=== PATIENT | female | born 1950 | race Caucasian/White ===

== ENCOUNTER → 2017-07-11 15:37 | Outpatient (CLI) | payer BC, SELFPAY ==
--- NOTE | 2017-07-11 15:41 | RAD_ITS ---
STUDY: X-RAY CHEST REASON FOR EXAM: Female, 66 years old. Cough and chest pain TECHNIQUE: PA and lateral views of the chest. COMPARISON: None. FINDINGS: Surgical clips in the right axilla. The lungs are clear and expanded. There is no demonstrated pleural abnormality. Normal size heart. Normal mediastinum and vinh. Normal visualized pulmonary arteries. Normal visualized aortic arch and descending thoracic aorta. Normal visualized thoracic spine. Normal visualized ribs, clavicles, and shoulders. There is no demonstrated abnormality of the visualized soft tissue structures of the upper abdomen. RAD/Chest PA and Lateral IMPRESSION: No acute cardiopulmonary disease Electronically Signed: Nehemiah Johnston DO at 16:13 EDT Tel , Service support ,
== END ==
PROVIDERS: Family Provider Internal Medicine; PCP Internal Medicine; Visit Provider Physician Assistant Surgical
DX: R06.02 Shortness of breath (principal)
CPT/HCPCS: 71046

== ENCOUNTER 2021-02-24 12:57 | Outpatient (CLI) | payer MEDICARE, BC, SELFPAY ==
[2021-02-24] MEDS: 0.9% Saline Lock 10 ML Syringe IV (13:15)
[2021-02-24 13:17] VITALS: BP 131/86; PULSE 76; RESP 16; TEMP 36.5; O2SAT 98; BMI 36.6
[2021-02-24 14:00] VITALS: BP 126/76; PULSE 73; RESP 16; TEMP 36.8; O2SAT 98
[2021-02-24 15:04] VITALS: BP 140/73; PULSE 72; RESP 16; TEMP 36.6; O2SAT 98
== END 2021-02-24 15:05 | disposition home or self-care (01) ==
LOC: MS3OUT 13:04 → MS3 13:05
PROVIDERS: PCP Internal Medicine; Referring Provider Nurse Practitioner Adult Health; Visit Provider Nurse Practitioner Adult Health
DX: Z23 Encounter for immunization (principal); U07.1 COVID-19
CPT/HCPCS: J7050; M0245; Q0245; A4216

== ENCOUNTER → 2022-10-26 | Outpatient (CLI) | payer MEDICARE, BC, SELFPAY ==
[2022-10-26 15:26] LABS: Absolute Lymphocyte Count 2.34 X10^3/uL (0.83-4.51); Absolute Neutrophil Count 5.3 X10^3/uL (2.0-7.7); Basophil# 0.08 X10^3/uL; Eosinophil# 0.11 X10^3/uL; Eosinophils% 1.3 % (0-5); Hematocrit 43.1 % (37-47); Hemoglobin 13.7 g/dL (12.0-15.0); Lymphocyte # 2.34 X10^3/ul (0.83-4.51); Lymphocyte % 28.1 % (19-41); Mean Corp Hgb Conc 31.8 g/dL (32-36); Mean Corpuscular Hgb 28.7 pg (27.0-32.0); Mean Corpuscular Volume 90.4 fL (81-99); Mean Platelet Vol. 9.9 fl (6.2-12.0); Monocyte# 0.51 X10^3/uL; Monocyte% 6.1 % (0-10); NRBC Flagged by Analyzer 0 % (0-5); Neutrophil # 5.29 X10^3/uL (2.7-7.7); Neutrophil % 63.4 % (47-70); Platelet Count 377 K/mm3 (150-450); RBC Distribution Width CV 14.5 % (11.6-14.6); RBC Distribution Width SD 47.9 fl (35.1-43.9); Red Blood Count 4.77 M/mm3 (4.2-5.4); White Blood Count 8.3 K/mm3 (4.4-11.0)
[2022-10-26 15:45] LABS: Vitamin B12 429 pg/mL (211-911)
[2022-10-26 15:53] LABS: Hemoglobin A1c 5.2 % (3.8-5.6)
[2022-10-26 16:07] LABS: AST(SGOT) 20 U/L (15-37); Alanine Aminotransfer ALT/SGPT 22 U/L (13-56); Albumin, Serum 3.7 g/dL (3.2-5.0); Alkaline Phosphatase 106 U/L (45-117); Anion Gap 5 (5-15); BUN 18 mg/dL (7-18); BUN/Creat Ratio 24.1 RATIO (10-20); Calcium,Total 9.2 mg/dL (8.5-10.1); Chloride 108 mmol/L (98-107); Cholesterol 222 mg/dL (200); Creatinine, Serum 0.75 mg/dL (0.55-1.02); EST Glomerular Filtration Rate 82 mL/min (>60); Est Glom Filt Rate - Afr Amer 99 mL/min (>60); Globulin 3.8 g/dL (2.2-4.2); Glucose 80 mg/dL (74-106); High Density Lipoprotein 63 mg/dL; Magnesium 2.4 mg/dL (1.6-2.6); Potassium 4.5 mmol/L (3.5-5.1); Protein, Total 7.5 g/dL (6.4-8.2); Sodium Level 137 mmol/L (136-145); Triglycerides 167 mg/dL; Very Low Density Lipoprotein 33 mg/dL (5-40)
== END | disposition home or self-care (01) ==
LOC: MFPLAB 12:16
PROVIDERS: PCP Internal Medicine; Visit Provider Family Medicine
DX: R42 Dizziness and giddiness (principal); Z68.31 Body mass index [BMI] 31.0-31.9, adult
CPT/HCPCS: 36415; 80053; 80061; 82607; 83036; 83735; 84443; 85025

== ENCOUNTER → 2022-11-08 | Outpatient (CLI) | payer MEDICARE, BC, SELFPAY ==
[2022-11-08 19:02] LABS: Free T3 2.4 pg/mL (2.18-3.98); T4 Free Direct 0.79 ng/dL (0.76-1.46); Thyroid Stim Hormone (TSH) 4.47 uIU/mL (0.358-3.74)
[2022-11-11 06:09] LABS: Anti-Thyroglobulin AB < 1.0 IU/mL (0.0-0.9); Thyroglobulin, Serum Qt. 13.5 ng/mL (1.5-38.5); Thyroid Peroxidase AB < 9 IU/mL (0-34); Thyroid Stim Immunoglob <0.10 IU/L (0.00-0.55)
== END | disposition home or self-care (01) ==
LOC: MFPLAB 15:18
PROVIDERS: PCP Family Medicine; Visit Provider Family Medicine
DX: R79.89 Other specified abnormal findings of blood chemistry (principal); Z79.899 Other long term (current) drug therapy
CPT/HCPCS: 36415; 84432; 84439; 84443; 84445; 84481; 86376; 86800

== ENCOUNTER → 2023-11-01 | Outpatient (CLI) | payer MEDICARE, BC, SELFPAY ==
[2023-11-01 18:18] LABS: ALB/GLOB Ratio 0.8 RATIO (0.9-2.4); AST(SGOT) 25 U/L (15-37); Alanine Aminotransfer ALT/SGPT 37 U/L (13-56); Albumin, Serum 3.3 g/dL (3.2-5.0); Alkaline Phosphatase 92 U/L (45-117); Anion Gap 6 (5-15); BUN 13 mg/dL (7-18); BUN/Creat Ratio 17.1 RATIO (10-20); Calcium,Total 9.3 mg/dL (8.5-10.1); Chloride 105 mmol/L (98-107); Cholesterol 194 mg/dL (200); Creatinine, Serum 0.76 mg/dL (0.55-1.02); EST Glomerular Filtration Rate 80 mL/min (>60); Est Glom Filt Rate - Afr Amer 97 mL/min (>60); Globulin 4.2 g/dL (2.2-4.2); Glucose 90 mg/dL (74-106); High Density Lipoprotein 52 mg/dL; Potassium 3.8 mmol/L (3.5-5.1); Protein, Total 7.5 g/dL (6.4-8.2); Sodium Level 137 mmol/L (136-145); T4 Free Direct 1.08 ng/dL (0.76-1.46); Thyroid Stim Hormone (TSH) 1.96 uIU/mL (0.358-3.74); Triglycerides 94 mg/dL; Very Low Density Lipoprotein 19 mg/dL (5-40)
[2023-11-01 18:19] LABS: Absolute Lymphocyte Count 2.65 X10^3/uL (0.83-4.51); Absolute Neutrophil Count 6.6 X10^3/uL (2.0-7.7); Basophil# 0.08 X10^3/uL; Basophil% 0.8 % (0-1); Eosinophil# 0.12 X10^3/uL; Eosinophils% 1.2 % (0-5); Hematocrit 34.3 % (37-47); Hemoglobin 10.9 g/dL (12.0-15.0); Lymphocyte # 2.65 X10^3/ul (0.83-4.51); Lymphocyte % 26.1 % (19-41); Mean Corp Hgb Conc 31.8 g/dL (32-36); Mean Corpuscular Hgb 27.9 pg (27.0-32.0); Mean Corpuscular Volume 87.9 fL (81-99); Monocyte# 0.63 X10^3/uL; Monocyte% 6.2 % (0-10); NRBC Flagged by Analyzer 0 % (0-5); Neutrophil # 6.61 X10^3/uL (2.7-7.7); Platelet Count 430 K/mm3 (150-450); RBC Distribution Width CV 15.6 % (11.6-14.6); RBC Distribution Width SD 48.2 fl (35.1-43.9); White Blood Count 10.2 K/mm3 (4.4-11.0)
[2023-11-01 18:44] LABS: BNP,B-Type NATRIURETIC PEPTIDE 21.5 pg/mL (0-100)
[2023-11-01 18:47] LABS: Vitamin D,25 Hydroxy 27.6 ng/mL
== END | disposition home or self-care (01) ==
LOC: MFPLAB 15:00
PROVIDERS: PCP Family Medicine; Visit Provider Family Medicine
DX: R06.02 Shortness of breath (principal); J18.9 Pneumonia, unspecified organism; R79.89 Other specified abnormal findings of blood chemistry
CPT/HCPCS: 36415; 80053; 80061; 82306; 83880; 84439; 84443; 85025

== ENCOUNTER → 2023-12-07 | Outpatient (CLI) | payer MEDICARE, BC, SELFPAY | END | disposition home or self-care (01) | LOC: PSN 09:08 | PROVIDERS: PCP Family Medicine; Referring Provider Family Medicine; Visit Provider Family Medicine | DX: R06.02 Shortness of breath (principal) | CPT/HCPCS: 94060; 94726; 94729 ==

== ENCOUNTER → 2023-12-21 | Outpatient (CLI) | payer MEDICARE, BC, SELFPAY ==
--- NOTE | 2023-12-21 10:35 | STRESSREP_ITS ---
Stress Test Report Date: 12/21/2023 Procedure: Exercise tolerance test Indications: Dyspnea Consent: Per the patient Procedure: The patient exercised on a Bran protocol for 2 minutes and 19 seconds achieving a peak heart rate of 133 bpm (89% predicted maximal heart rate) with a peak blood pressure 162/90 mmHg and a peak MET capacity of approximately 4.6 MET's. The baseline ECG demonstrated sinus rhythm. The peak exercise ECG demonstrated sinus tachycardia with no diagnostic ischemic changes. There were no cardiac dysrhythmias pretest, during exercise, or recovery. The functional capacity was considered suboptimal. The patient had no complaints of chest discomfort during exercise or recovery. The examination was discontinued secondary to patient's complaints of shortness of breath. Impression: 1. Technically adequate (percent predicted maximal heart rate greater than 85%) exercise tolerance test. 2. Peak exercise ECG with no ischemic changes 3. Patient with complaints of severe shortness of breath in stage one of the Bran protocol. Exercise limited to 2 minutes and 19 seconds only. Poor functional capacity. This note was generated with [email or web address] software. It may contain incorrect words, spelling, and punctuation that were not noted in checking the note before signing.
== END | disposition home or self-care (01) ==
LOC: CVS 09:37
PROVIDERS: PCP Family Medicine; Referring Provider Family Medicine; Visit Provider Family Medicine
DX: R06.02 Shortness of breath (principal)
CPT/HCPCS: 93017

== ENCOUNTER → 2024-01-16 | Outpatient (CLI) | payer MEDICARE, BC, SELFPAY ==
[2024-01-16 12:28] LABS: Absolute Lymphocyte Count 2.16 X10^3/uL (0.83-4.51); Absolute Neutrophil Count 4.2 X10^3/uL (2.0-7.7); Basophil# 0.07 X10^3/uL; Eosinophil# 0.22 X10^3/uL; Eosinophils% 3.1 % (0-5); Hematocrit 41.4 % (37-47); Hemoglobin 12.9 g/dL (12.0-15.0); Lymphocyte # 2.16 X10^3/ul (0.83-4.51); Mean Corp Hgb Conc 31.2 g/dL (32-36); Mean Corpuscular Hgb 28.6 pg (27.0-32.0); Mean Corpuscular Volume 91.8 fL (81-99); Monocyte# 0.54 X10^3/uL; Monocyte% 7.5 % (0-10); NRBC Flagged by Analyzer 0 % (0-5); Neutrophil # 4.17 X10^3/uL (2.7-7.7); Platelet Count 358 K/mm3 (150-450); RBC Distribution Width CV 14.2 % (11.6-14.6); RBC Distribution Width SD 47.6 fl (35.1-43.9); Red Blood Count 4.51 M/mm3 (4.2-5.4); White Blood Count 7.2 K/mm3 (4.4-11.0)
[2024-01-16 12:58] LABS: Vitamin B12 791 pg/mL (211-911)
[2024-01-16 13:54] LABS: Ferritin 74 ng/mL (8-252); Iron 74 ug/dL (50-170); Iron Binding Capacity,Total 353 ug/dL (250-450)
== END | disposition home or self-care (01) ==
LOC: MFPLAB 09:37
PROVIDERS: PCP Family Medicine; Visit Provider Family Medicine
DX: D64.9 Anemia, unspecified (principal)
CPT/HCPCS: 36415; 82607; 82728; 82746; 83540; 83550; 85025

== ENCOUNTER 2024-07-09 07:58 | Outpatient (CLI) | payer MEDICARE, BC, SELFPAY ==
[2024-07-09 10:41] LABS: Cholesterol 212 mg/dL (<=200); High Density Lipoprotein 81 mg/dL; Low Density Lipoprotein Calc. 110 mg/dL; Triglycerides 105 mg/dL; Very Low Density Lipoprotein 21 mg/dL (5-40); cholesterol:hdl ratio screen 2.63
[2024-07-09 12:28] LABS: Hemoglobin A1c 5.6 % (<=5.6)
== END 2024-07-09 23:59 | disposition home or self-care (01) ==
LOC: MFPLAB 07:59
PROVIDERS: PCP Family Medicine
DX: Z13.1 Encounter for screening for diabetes mellitus (principal); Z13.220 Encounter for screening for lipoid disorders
CPT/HCPCS: 36415; 80061; 83036

== ENCOUNTER → 2024-07-19 | Outpatient (CLI) | payer MEDICARE, BC, SELFPAY ==
--- NOTE | 2024-07-19 11:34 | RAD_ITS ---
PROCEDURE: Left knee radiographs, four views 07/19/2024 REASON FOR EXAM: LEFT KNEE INJURY TECHNIQUE: Four views of the left knee were obtained. COMPARISON: None available FINDINGS: Four views of the left knee were obtained. Bones are osteopenic. No acute fracture or dislocation of the left knee. Moderate degenerative change of the lateral and patellofemoral compartments. Severe degenerative change of the medial compartment. Small suprapatellar effusion. RAD/Knee 4 or More Views IMPRESSION: Osteoarthritis. No acute bony abnormality of the left knee. Moderate/severe tricompartmental degenerative changes of the left knee, greates t involving the medial compartment. Small suprapatellar effusion. Reading Location: [facility]
== END | disposition home or self-care (01) ==
LOC: MTRAD 11:26
PROVIDERS: PCP Family Medicine; Referring Provider Family Medicine; Visit Provider Family Medicine
DX: M25.562 Pain in left knee (principal)
CPT/HCPCS: 73564

== ENCOUNTER → 2024-07-24 | Outpatient (CLI) | payer MEDICARE, BC, SELFPAY ==
--- NOTE | 2024-07-24 09:40 | BD_ITS ---
PROCEDURE: DEXA BONE DENSITY STUDY 07/24/2024 REASON FOR EXAM: F, age 73 y/o . Postmenopausal. TECHNIQUE: DXA scan of the lumbar spine and both hips using make and model. REFERENCE LINKS: ISCD Adult Positions COMPARISON: None FINDINGS: BMD and T-SCORES Lumbar spine: 1.274 g/cm2, T-Score 2.1 L1 through L4 Left femoral neck: 0.754 g/cm2, T-Score -0.9 Femoral neck comparison data not recommended for monitoring change. Left total hip: 0.984 g/cm2, T-Score 0.3 Change from prior: 1.9 Right femoral neck: 0.823 g/cm2, T-Score -0.2 Femoral neck comparison data not recommended for monitoring change. Right total hip: 0.971 g/cm2, T-Score 0.2 BD/Dexa Bone Density Study IMPRESSION: NORMAL T-SCORES. Recommend follow-up as clinically warranted. Reading Location: [place] [id number]
--- NOTE | 2024-07-24 09:40 | BI_ITS ---
EXAM: SCRN MAMM (CAD)W/MK BILAT 07/24/2024 CLINICAL HISTORY: F, Age 73 y/o, screening. Personal history of right breast cancer status post lumpectomy and radiation and tamoxifen in 1999. TECHNIQUE: Bilateral screening digital breast tomosynthesis with 2D and 3D images. Computer aided detection. COMPARISON: No priors available FINDINGS: TISSUE DENSITY: The breast tissue is composed of scattered area of fibroglandular density. Bilateral Breast Mammographic Findings: There are postsurgical changes with associated large dystrophic calcifications in the upper outer right breast at posterior depth. No significant masses, calcifications or other abnormalities are identified. BI/SCRN MAMM (CAD)W/MK BILAT IMPRESSION: Right Breast: BIRADS 2 BENIGN FINDING. Left Breast: BIRADS 1 NEGATIVE. OVERALL FINAL ASSESSMENT: BIRADS 2 BENIGN FINDING. RECOMMENDATION: Routine annual follow-up in 1 Year A letter with findings and recommendations will be mailed to the patient. Reading Location: [id number]
== END | disposition home or self-care (01) ==
LOC: OPBD 09:39
PROVIDERS: PCP Family Medicine
DX: Z12.31 Encounter for screening mammogram for malignant neoplasm of breast (principal); Z13.820 Encounter for screening for osteoporosis; Z78.0 Asymptomatic menopausal state
CPT/HCPCS: 77063; 77067; 77080

== ENCOUNTER → 2024-10-07 | Outpatient (CLI) | payer MEDICARE, BC, SELFPAY ==
--- NOTE | 2024-10-07 18:43 | CT_ITS ---
PROCEDURE: EXTREMITY LOWER WITHOUT CONTRA 10/07/2024 REASON FOR EXAM: UNILATERAL PRIMARY OSTEOARTHRITIS, LT KNEE, WEN TECHNIQUE: EXTREMITY LOWER WITHOUT CONTRA Coronal and Sagittal reconstruction series were provided. CONTRAST: None One or more dose reduction techniques were used (e.g., Automated exposure control, adjustment of the mA and/or kV according to patient size, use of iterative reconstruction technique). RADIATION DOSE SUMMARY: DLP: 1292.91 mGycm COMPARISON: None FINDINGS: Bones: There is moderate to severe tricompartment osteoarthritis, most severe in the medial compartment. There is joint space narrowing and marginal osteophytes. There is a 3 cm Levy's cyst. There is a small joint effusion. Soft tissues are unremarkable. There is no visible atherosclerosis. CT/Extremity Lower without Contra IMPRESSION: There is moderate to severe tricompartment osteoarthritis, most severe in the m edial compartment. There is joint space narrowing and marginal osteophytes. There is a 3 cm Levy's cyst. There is a small joint effusion. Reading Location: [facility]
== END | disposition home or self-care (01) ==
LOC: CT 18:34
PROVIDERS: PCP Family Medicine; Referring Provider Specialist; Visit Provider Specialist
DX: M17.12 Unilateral primary osteoarthritis, left knee (principal)
CPT/HCPCS: 73700

== ENCOUNTER 2024-12-09 07:02 | Observation (INO) | payer MEDICARE, BC, SELFPAY ==
--- NOTE | 2024-11-14 07:23 | EKG12_ITS ---
Test Reason : PRE OP Blood Pressure : */* mmHG Vent. Rate : 66 BPM Atrial Rate : 66 BPM P-R Int : 168 ms QRS Dur : 68 ms QT Int : 386 ms P-R-T Axes : 24 22 44 degrees QTcB Int : 404 ms Normal sinus rhythm Normal ECG Confirmed by JODY STONE, AFSHIN ([id number]), dictionary editor KEYA BLACKBURN ([id number]) on 11/15/2024 1:18:39 PM Referred By: Sulaiman Love Confirmed By: AFSHIN VERA MD
[2024-11-14 08:39] LABS: Hematocrit 41.5 % (37-47); Hemoglobin 13.4 g/dL (12.0-15.0); Immature Granulocytes Count 0.030 X10^3/uL (0.0-0.0); Mean Corp Hgb Conc 32.3 g/dL (32-36); Mean Corpuscular Volume 91.0 fL (81-99); Mean Platelet Vol. 9.6 fl (6.2-12.0); NRBC Flagged by Analyzer 0 % (0-5); Platelet Count 332 K/mm3 (150-450); RBC Distribution Width CV 14.3 % (11.6-14.6); RBC Distribution Width SD 47.8 fl (35.1-43.9); Red Blood Count 4.56 M/mm3 (4.2-5.4); White Blood Count 8.1 K/mm3 (4.4-11.0)
[2024-11-14 08:48] LABS: Prothrombin Time (Protime)PT. 12.5 SECONDS (11.7-14.9)
[2024-11-14 08:50] LABS: Partial Thromboplast Time 28.1 Seconds (24.1-36.2)
[2024-11-14 09:23] LABS: Albumin, Serum 4.2 g/dL (3.4-4.8); Anion Gap 11 (5-15); BUN 16 mg/dL (4-19); BUN/Creat Ratio 22.1 RATIO (10-20); Calcium,Total 9.2 mg/dL (7.6-11.0); Carbon Dioxide 23.1 mmol/L (21.0-32.0); Chloride 106 mmol/L (98-108); Glucose 90 mg/dL (70-99); Magnesium 2.3 mg/dL (1.5-2.2); Potassium 4.3 mmol/L (3.3-5.1)
--- NOTE | 2024-11-14 16:14 | PAT.ANE_ITS ---
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 When Was Last Pacemaker Check QUESTION #4 FULL TEXT: You/Your Family Experience fever (hyperthermia) with Anesthesia Last Oral Intake Last Oral intake: Last Oral Intake NPO since Meds taken in AM with sips of water? 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 accounting clerk: PONV - entry level accounting clerk Female Yes 11/11/24 08:17 HX of Motion Sickness No 11/11/24 08:17 HX of N/V After Surgery No 11/11/24 08:17 Non-Smoker Yes 11/11/24 08:17 Duration of Surgery greater Yes 11/11/24 08:17 than 60 minutes Number of Risk Factors 3 11/11/24 08:17 PONV Score Moderate Risk 11/11/24 08:17 Height & Weight Height & Weight: Anesthesia: Height & Weight Height 5 ft 2 in 10/30/23 07:33 Respiratory Assessment Respiratory Assessment - entry level accounting clerk: Respiratory Tract Infection Hx - entry level accounting clerk Hx Respiratory Tract Infection No 11/11/24 08:17 STOP Sleep Apnea STOP Sleep Apnea - entry level accounting clerk: STOP Sleep Apnea - entry level accounting clerk Hx Hypertension No 11/11/24 08:17 Hx Sleep Apnea No 11/11/24 08:17 CPAP BIPAP Do you snore loudly (louder No 11/11/24 08:17 than talking or can be heard Do you often feel tired/ No 11/11/24 08:17 fatigued/ sleepy during daytime? Has anyone observed you stop No 11/11/24 08:17 breathing during sleep? STOP Results Negative 11/11/24 08:17 QUESTION #5 FULL TEXT : Do you snore loudly (louder than talking or can be heard through closed doors)? 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 Specify any problems Hx of Preganancy in last 3 N/A 11/11/24 08:17 Months Nurse Filling Out Transfusion NBUCHER 11/11/24 08:17 & Questions: Date: 11/11/24 11/11/24 08:17 Time: 08:20 11/11/24 08:17 Patient unable to answer at this time (ie. confused, unrespo /Reproduction History /Reproductive History - entry level accounting clerk: /Reproductive Hx- entry level accounting clerk Hx Now No 11/11/24 08:17 Gestational Age (in weeks): EDC: Hx Hx Para Hx Section SAB No 11/11/24 08:17 [facility] Medical History (Updated 11/11/24 @ 08:32 by Jackie Canchola) Post-menopausal Wears glasses Cancer Walker as ambulation aid Arthritis Anemia High cholesterol Chronic cough Non-smoker History of edema History of stress test Pneumonia Incontinence Bruising, spontaneous Asthma Knee pain Hay fever Shortness of breath History of breast cancer Home Medications ?Medication ?Instructions ?Recorded ?Last Taken ?Type Folate 800 mcg PO DAILY 11/11/24 Un known History cholecalciferol (vitamin D3) 50 75 mcg PO DAILY Unknown History mcg (2,000 unit) tablet (Vitamin D3) cyanocobalamin (vitamin B-12) 1,000 mcg PO QODAY 11/11 Unknown History 1,000 mcg capsule ferrous sulfate 325 mg (65 mg 325 mg PO QODAY 11/11/24 Unknown History iron) tablet (Feosol) Allergy/AdvReac Type Severity Reaction Status Date / Time Sulfa (Sulfonamide Allergy Hives Verified 11/11/24 08:12 Antibiotics) codeine AdvReac Other Verified 11/11/24 08:12 Surgical History (Updated 11/11/24 @ 08:32 by Jackie Canchola) History of lumpectomy of right breast History of tonsillectomy History of foot surgery History of History of arthroscopy of right knee Social History Smoking Status: Never smoker alcohol intake: never Audit: Pertinent Findings Pertinent Findings EKG Perinent findings: 11/14/2024: Normal sinus rhythm with no significant changes in comparison to EKG from 11/29/2000 Stress test pertinent findings: 12/21/2023: Peak exercise EKG without ischemic changes. Technically adequate exercise tolerance test (percent predicted maximal heart rate greater than 85%). Pulmonary function results/spirometer pertinent findings: 12/08/2023: Grossly normal pulmonary function studies. Recommendation Anesthesia Recommendation Anesthesia recommendation: OPTIMIZED for anesthesia
--- NOTE | 2024-11-29 12:50 | HP.PCM_ITS ---
History and Physical History and Physical? Patient Name: Meg Soliz : 1950From:? ROSA MCKEE PA-C? DATE OF PRE-OPERATIVE EXAM: 11/29/2024 DATE OF SURGERY:? 12/09/2024 SCHEDULED PROCEDURE:? Robotic-assisted left total knee arthroplasty HISTORY OF PRESENT ILLNESS: Preoperative history and physical exam was performed on November 29, 2024.? This is a 74-year-old female who has been having ongoing pain for the past several years.? Pain is been progressively been getting worse.? Her pain is constant, dull, aching, sharp, stabbing.? Pain is increased with going up and down stairs, sitting, and walking.? She cannot walk more than 100 feet without significant pain.? Her pain can reach 7/10.? She has been using Tylenol and [id number] ibuprofen as needed.? Patient has difficulty with activities of daily living including getting dressed, housework, shopping, and leisure activities such as gardening and careing of her livestock.? She has tripped/stumbled secondary to pain.? She feels unsafe walking without support long distance.? She has required the use of a cane.? She has tried rest, ice, heat without relief.? She has had previous corticosteroid injection with minimal to no relief.? She has attempted physical therapy and home exercises without relief.? She has tried oral medications without relief.? She attempted bracing.? After failing conservative measures and discussing all treatment options with Dr. Sulaiman Love, the patient does wish to proceed with a robotic assisted left total knee arthroplasty.? She has obtain surgical clearance from primary care provider Dr. Darinel Farley.? Patient denies past history of DVT or pulmonary embolism.? No recent fevers, chills or recent infections.? Denies chest pain or shortness of b reath.? She does report having anemia which has been stable and she uses chronic ferrous sulfate and folic acid. REVIEW OF SYSTEMS: Review Of Systems: Constitutional: Reports weight gain, but denies anorexia, anxiety, change in appetite, fever and weight change,hard of hearing, and vision problems. Cardiovasular: Denies chest pain, heart murmur, irregular heartbeat and peripheral vascular disease. Respiratory: Reports asthma, cough, shortness of breath and wheezing, but denies pneumonia, sleep apnea and tuberculosis. Gastrointestinal: Reports diarrhea, but denies constipation, heartburn, nausea, bloody stools and vomiting, and difficulty swallowing. Genitourinary: Reports irregular menstrual periods. Denies incontinence. Musculoskeletal: Reports gait disturbance, leg swelling, pain, trouble walking and weakness. Skin: Denies Raynaud's, history of shingles and tattoo. Neurological: Denies ambulatory dysfunction, dizziness, numbness/tingling and tremor. Psychiatric: Denies anxiety, depression, insomnia, mental illness and stress. Hematologic/Lymphatic: Reports bleeding/bruising tendency, but denies anemia and past transfusion. Reviewed and updated. PAST MEDICAL HISTORY: Advance Care Plan: No Advance Directives Effective Date: 07/31/2024 Past Medical History: Medical Problems: Arthritis, Asthma Cancer - breast 2000 High Blood Pressure, Covid- 19, Covid-19 Vaccine, anemia Accidents: Fracture - finger - little kid couple ribs crack below the knee Surgical Hx: Lumpectomy - right 2001 Knee Arthroscopy RT Section - x2 Tonsillectomy - as a child Anesthesia Complications: None Assistive Devices: Glasses Reviewed and updated. SOCIAL HISTORY: Social History: Marital: .Occupation: Retired.Work Status: Retired.Hand Dominance: Right-handed. Personal Habits:? Cigarette Use: Never.Smokeless Tobacco: Never Used Smokeless Tobacco.E-Cigarette Use: Never used.Alcohol: Occasionally.Drug Use: Denies Use.Enjoy Exercising: Exercises 1-3 x/month. Reviewed and updated. VITALS: Ht: 61 Wt: 197lb Wt k.359 BMI: 37.2 BP: 126/80 Pulse: 80 Resp: 19 T: 97.5 T: 36.4C Pain Level: 7/10 O2SatR: 98 ALLERGIES: Codeine Sulfa? MEDICATIONS: B12 5000 mcg daily, Folate 400 mcg daily, D3 2000 50 mcg (2000 Ut) three times per week, Vitamin D3 Ultra Strength 125 mcg (5000 Ut) daily, Tylenol 325 mg as needed, Ibuprofen 200 mg as needed, Iron 325 (65 Fe) MG three times per week, Folic Acid 800 mcg daily PRE-OP EXAM:? General appearance:NORMAL? ? ? Other: Eyes: Conjunctivae and lids: NORMAL? Pupils: ERR Ears, Nose, Mouth, and Throat: NORMAL? Other: Inspection of lips, teeth and gums: NORMAL? ?Other: Neck: Examination of neck: no masses noted. Respiratory: Assessment of respiratory effort: NORMAL? ?Other: ?Auscultation of lungs: clear to auscultation no wheezes, rhonchi or rales. Cardiovascular:? Auscultation of heart: regular rate and rhythm, no murmurs, gallops or rubs. PHYSICAL EXAMINATION: Patient does walk with an antalgic gait.? Left knee is without erythema or signs of infection.? She has tenderness to palpation along the medial joint line.? She has large effusion.? Varus alignment which is correctable on exam.? Range of motion: Lacks 15 full extension to 115 flexion.? Stable to anterior/posterior drawer exam. IMAGING STUDIES: Previous x-rays of the left knee reveal varus alignment with medial joint space narrowing, subchondral sclerosis, osteophyte formation consistent with severe stage IV bone on bone osteoarthritis. IMPRESSION: 1.? Severe left knee osteoarthritis with varus deformity 2.? Hypertension 3.? Anemia 4.? Asthma 5.? Previous breast cancer 6.? Obesity with BMI 37.2 PLAN: Dr. Sulaiman Love did discuss and review with the patient all treatment options including surgical versus nonsurgical options.? I will continue plan established by Dr. Sulaiman Love.? Patient does wish to proceed with the above-stated procedure.? Potential risks, benefits, and complications of the procedure were discussed in detail including but not limited to , infection, nerve and blood vessel damage, persistent pain, numbness, tingling, paresthesias, blood clot, pulmonary embolism, and requirement for possible further surgery.? The patient expressed full understanding and has no further questions for the doctor.? Patient does agree to proceed with the above-stated procedure and has signed the surgery consent form. POST-OP MEDICATION PLAN: Pain Medications: Postoperative pain regimen will be initiated by Dr. Sulaiman Love in the hospital.? We discussed Tylenol, meloxicam, and oxycodone postoperatively.? Patient will bring her walker to the hospital for postoperative use.? She will continue on her ferrous sulfate and folic acid. DVT Prophylaxis Plan:? Aspirin 81 mg twice daily for 4 weeks postoperatively.? Denies past history of DVT or pulmonary embolism.? Patient will continue with DEIDRE hose for 2 weeks postoperatively. This dictation was created using voice recognition software. Phonetic and/or grammatical errors may exist. ___? I have re-examined the patient.? There are no clinical changes since date of exam. ___? See progress notes for changes. ___? Dictated on admission Date: ? ? ?Time: Signature:
[2024-12-09] VITALS (14 sets, daily range): BP systolic 96–135; BP diastolic 57–78; PULSE 50–81; RESP 11–18; TEMP 35.9–36.6; O2SAT 94–100; BMI 37.3
--- NOTE | 2024-12-09 07:02 | RAD_ITS ---
PROCEDURE: KNEE 1 OR 2 VIEWS 12/09/2024 REASON FOR EXAM: TKA TECHNIQUE: Left knee two views COMPARISON: July 19, 2024 FINDINGS: There is a total knee prosthesis in position with anatomic alignment. Soft tissue air and surgical manjinder are noted consistent with recent surgery. RAD/Knee 1 or 2 Views IMPRESSION: Hardware in position. Reading Location: [facility]
--- OUTSIDE RECORDS SUMMARY | 2024-12-09 07:24 | XMS RPT_ITS | CCD ---
Author Organization [facility] Care Team Providers Care Continuous Improvement Coordinator Name Role Phone Alina Solorzano Unavailable Eliot Nobles Unavailable [facility], [facility] Unavailable Alisa Lino Unavailable Unavailable Tima, Vandana Unavailable Unavailable Unavailable Unavailable Darinel Escamilla MD Primary Care Provider [phone] Darinel Escamilla MD Primary Care Provider [phone] [facility] Chet KNIGHT Attending Provider Darinel Escamilla MD Attending Provider [phone] Darinel Escamilla MD Referring [facility] Chet KNIGHT Referring Provider ELIOT MCKEON Referring Unavailable DARINEL ESCAMILLA Primary Care Unavailable ELIOT MCKEON Referring Unavailable DARINEL ESCAMILLA Primary Care Unavailable ELIOT MCKEON Referring Unavailable DARINEL ESCAMILLA Primary Care Unavailable ELIOT MCKEON Referring Unavailable DARINEL ESCAMILLA Primary Care Unavailable ELIOT MCKEON Referring Unavailable DARINEL ESCAMILLA Primary Care Unavailable ELIOT MCKEON Referring Unavailable DARINEL ESCAMILLA Primary Care Unavailable BHAVESH GOMES Attending Unavailable DARINEL ESCAMILLA Primary Care Unavailable ELIOT MCKEON Referring Unavailable DARINEL ESCAMILLA Primary Care Unavailable ELIOT MCKEON Referring Unavailable DARINEL ESCAMILLA Primary Care Unavailable Kate STONE, Dr. Hilario Attending Provider [phone] Kate STONE, Dr. Hilario Referring Provider [phone] Miguelito, Chalon Primary Care Unavailable Miguelito, Chalon Attending Unavailable Miguelito, Chalon Primary Care Unavailable McMorrow POT LINING SUPERVISOR, Chet Attending Unavailable Miguelito, Chalon Primary Care Unavailable Sulaiman Love Referring Unavailable Bhanu Fam Attending Unavailabl e Miguelito, Chalon Primary Care Unavailable McMorrow POT LINING SUPERVISOR, Chet Attending Unavailable McMorrow POT LINING SUPERVISOR, Chet Referring Unavailable Kate, Sulaiman Attending Unavailable Kate, Sulaiman Referring Unavailable Miguelito, Chalon Primary Care Unavailable Miguelito, Chalon Primary Care Unavailable Miguelito, Chalon Attending Unavailable Miguelito, Chalon Referring Unavailable Miguelito, Chalon Primary Care Unavailable Kate, Sulaiman Referring Unavailable Kate, Sulaiman Attending Unavailable Miguelito, Chalon Primary Care Unavailable Miguelito, Chalon Attending Unavailable Miguelito, Chalon Referring Unavailable Miguelito, Chalon Primary Care Unavailable Denisa Ramirez Attending Unavailable Miguelito, Chalon Consulting Unavailable Miguelito, Chalon Referring Unavailable Miguelito, Chalon Primary Care Unavailable KateSulaiman dumont Referring Unavailable Kate, Sulaiman Attending Unavailable Allergies Allergy Classification Reported Allergen(s) Allergy Type Date of Onset Reaction(s) Facility (2 sources) Sulfonamides (Antibiotic); Translations: [Sulfa Drugs] allergy to substance [facility] Work Phone: (2 sources) Codeine/Codeine Derivatives; Translations: [Codeine/Codeine Derivatives] allergy to substance [facility] Work Phone: Comment on above: hyper (8 sources) Codeine; Translations: [CODEINE] Drug Allergy 5 [facility] (7 sources) Sulfonamides (Antibiotic); Translations: [SULFA (SULFONAMIDE ANTIBIOTICS)] Allergy to substance 8 [facility] (1 source) Sulfonamides (Antibiotic) Drug Allergy 4 [facility] Work Phone: (1 source) Codeine Drug Allergy 5 [facility] (1 source) Sulfonamides (Antibiotic) Drug allergy (disorder) 5 [facility] Medications Current Medications Medication Drug Class(es) Dates Sig (Normalized) Sig (Original) [id number] 200 actuat albuterol 0.09 mg/actuat metered dose inhaler (8 sources) beta2-Adrenergic Agonist Start: 10-30-2023 Albuterol Sulfate 90 mcg/actuation HFA aerosol inhaler Active 2 NMA INHALATION EVERY 6 HOURS as needed for wheezing October 30, 2023 12:00am Start: 10-17-2023 End: 10-16-2024 take 2 puff(s) by inhalation every six hours for wheezing albuterol 90 mcg/actuation inhaler Indications: Acute bronchitis, unspecified organism Inhale 2 puffs every 6 hours if needed for wheezing. 18 g 10/17/2023 10/16/2024 Active Start: 11-26-2015 take 2 puff(s) by in halation every four hours as needed ProAir HFA 108 (90 Base) MCG/ACT Inhalation Aerosol Solution 2 (two) PUff Q 4 HRS PRN for 30 days Quantity: 1 {Inhaler} Refills: 1 Ordered: 26-Nov-2015 Alina Solorzano DO, DO, Kathleen Start : 26-Nov-2015 Active Start: 11-26-2015 take 2 puff(s) by in halation every four hours as needed ProAir HFA 108 (90 Base) MCG/ACT Inhalation Aerosol Solution 2 (two) PUff Q 4 HRS PRN for 30 days Quantity: 1 {Inhaler} Refills: 1 Ordered: 26-Nov-2015 Alina Solorzano DO, DO, Kathleen Start : 26-Nov-2015 Active albuterol sulfat e (PROAIR HFA INHL) Inhale. Active azithromycin 250 mg oral tablet (7 sources) Macrolide Antimicrobial Start: 10-17-2023 End: 10-22-2023 azithromycin (Zithromax Z-Thomas) 250 mg tablet Indications: Acute bronchitis, unspecified organism Take 2 tablets (500 mg) on Day 1, followed by 1 tablet (250 mg) once daily on Days 2 through 5. 6 tablet 10/17/2023 10/22/2023 Active Start: 07-11-2017 End: 07-16-2017 Azithromycin 250 mg tablet D iscontinued 250 mg PO daily 6 July 11, 2017 12:00am July 15, 2017 12:00am July 16, 2017 12:06am Take 2 tabs once on day one then take one tablet once daily for the next 4 days. benzonatate 200 mg oral capsule (4 sources) Non-narcotic Antitussive Start: 10-30-2023 take 1 capsule by mouth three times daily as needed for cough Benzonatate 200 mg capsule Active 200 mg PO THREE TIMES A DAY as needed for cough October 30, 2023 12:00am levoFLOXacin 500 mg oral tablet (4 sources) Quinolone Antimicrobial Start: 10-30-2023 take 1 tablet by mouth every twenty-four hours Levofloxacin 500 mg tablet Active 500 mg PO Q24H October 30, 2023 12:00am LOW-DOSE ASPIRIN ORAL (1 source) LOW-DOSE ASPIRIN ORAL Take by mouth. Active Zihlman (Nk) (2 sources) Start: 02-24-2021 Zihlman (Nk) Active February 24, 2021 12:00am Completed/Discontinued Medications Medication Drug Class(es) Dates Sig (Normalized) Sig (Original) amoxicillin 875 mg / clavulanate 125 mg oral tablet (2 sources) Penicillin-class Antibacterial Start: 11-26-2015 End: 02-08-2016 take 1 tablet by mouth twice daily Augmentin 875-125 MG Oral Tablet 1 (one) Tablet bid for 0 days Quantity: 20 {Tablet} Refills: 0 Ordered: 08-Feb-2016 Vandana Alfred RN Start : 26-Nov-2015 End : 08-Feb-2016 Inactive cefdinir 300 mg oral capsule (2 sources) Cephalosporin Antibacterial Start: 10-11-2016 take 1 capsule by mouth twice daily Cefdinir 300 MG Oral Capsule 1 (one) Capsule bid for 0 days Quantity: 14 {Capsule} Refills: 0 Ordered: 11-Oct-2016 Alina Solorzano DO, DO, Kathleen Start : 11-Oct-2016 Active cholecalciferol 0.05 mg oral tablet (2 sources) Vitamin D Start: 02-10-2016 take 1 tablet by mouth once daily Vitamin D3 2000 UNIT Oral Tablet 1 (one) Tablet Tablet 3 daily for 0 days Quantity: 90 {Tablet} Refills: 3 Ordered: 11-Oct-2016 Jayjay Stern MD Start : 10-Feb-2016 Active dexamethasone 6 mg oral tablet (4 sources) Corticosteroid Start: 03-09-2023 End: 10-30-2023 take 1 tablet by mouth once daily Dexamethasone 6 mg tablet Discontinued 6 mg PO DAILY March 09, 2023 1:00am October 30, 2023 7:33am 24 hr etodolac 400 mg extended release oral tablet (2 sources) Nonsteroidal Anti-inflammatory Drug Start: 02-08-2016 take 2 tablets by mouth every twenty-four hours, then take 1 tablet by mouth once daily at mealtime Etodolac ER 400 MG Oral Tablet Extended Release 24 Hour 2 (two) Tablet ER 24HR Tablet ER 24HR qd with food for 0 days Quantity: 60 {Tablet} Refills: 0 Ordered: 08-Feb-2016 Vandana Alfred RN Start : 08-Feb-2016 Active 120 actuat formoterol fumarate 0.005 mg/actuat / mometasone furoate 0.1 mg/actuat metered dose inhaler (2 sources) Corticosteroid, beta2-Adrenergic Agonist Start: 11-26-2015 End: 12-26-2015 Dulera 100-5 MCG/ACT Inhalation Aerosol 1 (one) Aerosol Aerosol qd for 30 days Quantity: 1 {Inhaler} Refills: 0 Ordered: 26-Nov-2015 Alina Solorzano DO, DO, Kathleen Start : 26-Nov-2015 End : 26-Dec-2015 Inactive Start: 11-26-2015 End: 12-26-2015 Dulera 100-5 MCG/ACT Inhalat ion Aerosol 1 (one) Aerosol Aerosol qd for 30 days Quantity: 1 {Inhaler} Refills: 0 Ordered: 26-Nov-2015 Alina Solorzano DO, DO, Kathleen Start : 26-Nov-2015 End : 26-Dec-2015 Inactive levothyroxine sodium 0.05 mg oral tablet (2 sources) l-Thyroxine Start: 02-10-2016 Synthroid 50 M CG Oral Tablet 1 (one) Tablet Tablet qd x 5 days and 2 tab mon and monday for 0 days Quantity: 38 {Tablet} Refills: 4 Ordered: 10-Feb-2016 Jayjay Stern MD Start : 10-Feb-2016 Active methylPREDNISolone 125 mg injection (9 sources) Corticosteroid Start: 10-17-2023 End: 10-17-2023 methylPREDNISolone sod succinate (SOLU-Medrol) injection 125 mg Start: 10-17-2023 End: 10-17-2023 inject 125 mg by intramuscular injection once 125 mg, intramuscular, Once, On Mon10/17/23 at 1825, For 1 dose Start: 10-17-2023 methylPREDNISo lone (Medrol Dospak) 4 mg tablets Indications: Acute bronchitis, unspecified organism Take as directed on package. 21 tablet 10/17/2023 Active Start: 07-11-2017 End: 07-16-2017 take 1 tablet by mouth once Methylprednisolone (Medrol (Thomas)) 4 mg tablets,dose pack Discontinued 4 mg PO per package directions 21 July 11, 2017 12:00am July 15, 2017 12:00am July 16, 2017 12:06am MULTIVITAMINS (Oral Capsule) (2 sources) Start: 04-06-2015 take 1 capsule by mouth once daily MULTIVITAMINS (Oral Capsule) 1 (one) Capsule qd for 30 days Refills: 0 Ordered: 06-Apr-2015 Alina Solorzano DO, DO, Kathleen Start : 06-Apr-2015 Active naproxen sodium 220 mg oral capsule (2 sources) Nonsteroidal Anti-inflammatory Drug Start: 04-06-2015 NAPROXEN SODIUM, 220MG (Oral Capsule) 1-2 Capsule PRN for 30 days Refills: 0 Ordered: 06-Apr-2015 Alina Solorzano DO, DO, Kathleen Start : 06-Apr-2015 Active predniSONE 20 mg oral tablet (2 sources) Start: 10-11-2016 End: 10-21-2016 PredniSONE 20 MG Oral Tablet 1 (one) Tablet bid for 3days then qd for 3days then 1/2 tab qd for 4days for 10 days Refills: 0 Ordered: 11-Oct-2016 Alina Solorzano DO, DO, Kathleen Start : 11-Oct-2016 End : 21-Oct-2016 Inactive Problems Active Problems Problem Classification Problem Date Documented Date Episodic/Chronic Acute bronchitis (9 sources) Acute bronchitis; Translations: [Acute bronchitis, unspecified] Onset: 10-17-2023 07-11-2017 Episodic Administrative/social admission (2 sources) Patient encounter status; Translations: [Nutritional counseling] 10-11-2016 Episodic Asthma (10 sources) Mild intermittent asthma; Translations: [Exacerbation of asthma] 10-11-2016 Chronic Comment on above: if allergeries are s table then no problm except for specific trigger -- flee spray at work Asthma (3 sources) Asthma Chronic obstructive pulmonary disease and bronchiectasis (3 sources) Acute exacerbation of chronic obstructive airways disease with asthma; Translations: [Chronic obstructive asthma with acute exacerbation (Renamed from Chronic obstructive asthma with exacerbation)] 10-11-2016 Chronic Chronic obstructive pulmonary disease and bronchiectasis (4 sources) Bronchitis; Translations: [Bronchitis] Resolved: 02-08-2016 02-08-2016 Episodic Immunizations and screening for infectious disease (5 sources) Need for prophylactic vaccination and inoculation against influenza; Translations: [Needs influenza immunization] 10-11-2016 Episodic Malaise and fatigue (10 sources) Fatigue; Translations: [Fatigue] Resolved: 07-27-2015 02-08-2016 Episodic Nausea and vomiting (6 sources) Nausea; Translations: [Nausea] Resolved: 07-27-2015 02-08-2016 Episodic Nutritional deficiencies (14 sources) Vitamin D deficiency; Translations: [Vitamin D deficiency] 10-11-2016 Chronic Osteoarthritis (10 sources) Bilateral primary osteoarthritis of knee; Translations: [Chronic osteoarthritis] Onset: 08-14-2024 10-11-2016 Chronic Other lower respiratory disease (4 sources) Cough; Translations: [Cough] Resolved: 02-08-2016 02-08-2016 Episodic Other lower respiratory disease (3 sources) Dyspnea at rest; Translations: [Shortness of breath at rest] Resolved: 02-08-2016 02-08-2016 Episodic Other lower respiratory disease (6 sources) Dyspnea; Translations: [Shortness of breath] 07-11-2017 Episodic Other non-traumatic joint disorders (2 sources) Pain in right knee; Translations: [Chronic pain of both knees] 10-11-2016 Episodic Other nutritional; endocrine; and metabolic disorders (3 sources) Body mass index 30+ - obesity; Translations: [BMI 36.0-36.9,adult] 10-11-2016 Chronic Other skin disorders (4 sources) Disorder of skin of upper limb; Translations: [Skin lesion of left arm] Resolved: 02-08-2016 02-08-2016 Episodic Comment on above: s/p shave biopay - p ath rev Other skin disorders (6 sources) Loss of hair; Translations: [Hair loss] Resolved: 07-27-2015 02-08-2016 Episodic Comment on above: improving Poisoning by nonmedicinal substances (3 sources) Bee sting; Translations: [Bee sting, accidental or unintentional, initial encounter] 10-18-2016 Episodic Residual codes; unclassified (4 sources) Non-smoker; Translations: [Nonsmoker] 10-11-2016 Episodic Skin and subcutaneous tissue infections (2 sources) Cellulitis of right upper limb; Translations: [Cellulitis of right upper extremity] 10-18-2016 Episodic Thyroid disorders (8 sources) Acquired hypothyroidism; Translations: [Acquired hypothyroidism] 10-11-2016 Chronic Unclassified (20 sources) Unclassified (4 sources) Hair loss Unclassified (5 sources) Patient encounter status; Translations: [Encounter for screening for lipid disorder] 10-18-2016 Unclassified (2 sources) Screening status; Translations: [Encounter for screening for malignant neoplasm of colon (Renamed from Special screening for malignant neoplasms, colon)] 10-11-2016 Unclassified (4 sources) Non-smoker; Translations: [Nonsmoker] 10-11-2016 Unclassified (3 sources) Abnormal TSH Unclassified (2 sources) Skin lesion of left arm Unclassified (2 sources) Osteoarthritis, chronic Unclassified (1 source) BMI 36.0-36.9,adult Unclassified (1 source) Bee sting, accidental or unintentional, initial encounter Unclassified (1 source) Cellulitis of right upper extremity Unclassified (1 source) Chronic pain of both knees Unclassified (1 source) Osteoarthritis of both knees, unspecified osteoarthritis type Unclassified (1 source) Nutritional counseling Unclassified (1 source) Shortness of breath at rest Unclassified (1 source) Encounter for screening mammogram for breast cancer (Renamed from Encounter for screening mammogram for malignant neoplasm of breast) Unclassified (6 sources) Age more than 65 years; Translations: [Over 65 years old] 02-23-2021 Viral infection (6 sources) Disease caused by 2019-nCoV; Translations: [COVID-19] 02-23-2021 Episodic Past or Other Problems Problem Classification Problem Date Documented Da te Episodic/Chronic Deficiency and other anemia (1 source) Anemia, unspecified; Translations: [Anemia, unspecified] Onset: 02-13-2024 Episodic Other lower respiratory disease (2 sources) Shortness of breath; Translations: [Shortness of breath] Onset: 01-02-2024 Episodic Other non-traumatic joint disorders (1 source) Knee pain; Translations: [Chronic pain of both knees] 10-11-2016 Episodic Other non-traumatic joint disorders (1 source) Pain in left knee; Translations: [Pain in left knee] Onset: 07-23-2024 Episodic Other screening for suspected conditions (not mental disorders or infectious disease) (14 sources) Thyroid hormone tests abnormal; Translations: [Abnormal TSH] Onset: 07-27-2024 10-18-2016 Episodic Residual codes; unclassified (1 source) Needs influenza immunization; Translations: [Need for prophylactic vaccination and inoculation against influenza (Renamed from Need for immunization against influenza)] 10-11-2016 Episodic Skin and subcutaneous tissue infections (1 source) Cellulitis of right upper limb; Translations: [Cellulitis of right upper extremity] 10-18-2016 Unclassified (2 sources) Pregnancies (); Translations: [Pregnancies ()] 10-11-2016 Comment on above: 2. Results Test Name Value Interpretation Reference Range Facility MRSA/SAID NASAL SCREENon MRSA+SAID SCRN Reason for Exam: PRE OP MRSA MRSA Negative S. AUREUS S. aureus Negative Normal [facility] Comment on above: Performed By: #### L 100.0100, L501.5200, L500.2500, M100.651, L300.3900, L300.4310, L501.1800 ####[facility] [address] [place], [address] 12 Lead EKGon 11-14-2024 12 Lead EKG [facility] [address] [place] [address] 12 Lead EKG 11/14/24 0741 MR#: [id number] Acct: [id number] Name: MEG BORDEN Rep #: [id number] : 1950 74 From: Bhanu Fam MD Attending Dr: Dr. Sulaiman Love MD Status: PRE [facility] Ordering Dr: Sulaiman Love MD Date: 11/14/24 Location: [facility] Sex: F C Admitted: Test Reason : PRE OP Blood Pressure : */* mmHG Vent. Rate : 66 BPM Atrial Rate : 66 BPM P-R Int : 168 ms QRS Dur : 68 ms QT Int : 386 ms P-R-T Axes : 24 22 44 degrees QTcB Int : 404 ms Normal sinus rhythm Normal ECG Confirmed by JODY STONE, AFSHIN ([id number]), development editor KEYA BLACKBURN ([id number]) on 11/15/2024 1:18:39 PM Referred By: Sulaiman Love Confirmed By: AFSHIN FAM MD 11/15/24 1318 Date Bhanu Fam MD CC: Dr. Darinel Escamilla MD; Dr. Sulaiman Love MD Signed Normal [facility] Albumin, Serumon 11-14-2024 Albumin [Mass/Vol] 4.2 g/dL Normal 3.4-4.8 [facility] Comment on above: Performed By: #### L 100.0100, L501.5200, L500.2500, M100.651, L300.3900, L300.4310, L501.1800 ####[facility] [address] [place], [place], [id number] Basic Metabolic Profile (BMP )on 11-14-2024 BUN/CRE 22.1 RATIO High 10-20 [facility] Comment on above: Performed By: #### L 100.0100, L501.5200, L500.2500, M100.651, L300.3900, L300.4310, L501.1800 ####[facility] [address] [place], [address] Calcium [Mass/Vol] 9.2 mg/dL Normal 7.6-11.0 [facility] Comment on above: Performed By: #### L 100.0100, L501.5200, L500.2500, M100.651, L300.3900, L300.4310, L501.1800 ####[facility] [address] [place], [address] Chloride [Moles/Vol] 106 mmol/L Normal 98-108 [facility] Comment on above: Performed By: #### L 100.0100, L501.5200, L500.2500, M100.651, L300.3900, L300.4310, L501.1800 ####[facility] [address] [place], [address] CO2 [Moles/Vol] 23.1 mmol/L Normal 21.0-32.0 [facility] Comment on above: Performed By: #### L 100.0100, L501.5200, L500.2500, M100.651, L300.3900, L300.4310, L501.1800 ####[facility] [address] [place], [place], [phone] Creatinine [Mass/Vol] 0.70 mg/dL Normal 0.70-1.20 [facility] Comment on above: Performed By: #### L 100.0100, L501.5200, L500.2500, M100.651, L300.3900, L300.4310, L501.1800 ####[facility] [address] [place], [place], [phone] GAP 11 Normal 5-15 [facility] Comment on above: Performed By: #### L 100.0100, L501.5200, L500.2500, M100.651, L300.3900, L300.4310, L501.1800 ####[facility] [address] [place], [address] GFR/1.73 sq M.predicted among non-blacks MDRD (S/P/Bld) [Vol rate/Area] 92 mL/min/{1.73_m2} Normal >60 [facility] Comment on above: Result Comment: mL/m in/1.73m2 CKD-EPI Creatinine Equation (2020) Performed By: #### L 100.0100, L501.5200, L500.2500, M100.651, L300.3900, L300.4310, L501.1800 ####[facility] [address] [place], [address] Glucose [Mass/Vol] 90 mg/dL Normal 70-99 [facility] Comment on above: Performed By: #### L 100.0100, L501.5200, L500.2500, M100.651, L300.3900, L300.4310, L501.1800 ####[facility] [address] [place], [address] Potassium [Moles/Vol] 4.3 mmol/L Normal 3.3-5.1 [facility] Comment on above: Performed By: #### L 100.0100, L501.5200, L500.2500, M100.651, L300.3900, L300.4310, L501.1800 ####[facility] [address] [place], [address] Sodium [Moles/Vol] 140 mmol/L Normal 133-145 [facility] Comment on above: Performed By: #### L 100.0100, L501.5200, L500.2500, M100.651, L300.3900, L300.4310, L501.1800 ####[facility] [address] [place], [address] Urea nitrogen [Mass/Vol] 16 mg/dL Normal 4-19 [facility] Comment on above: Performed By: #### L 100.0100, L501.5200, L500.2500, M100.651, L300.3900, L300.4310, L501.1800 ####[facility] [address] [place], [address] CBC W/Diff, Automatedon 07-2 Absolute Lymph 2.12 X10 3/uL Normal 0.83-4.51 [facility] Comment on above: Performed By: #### L 100.0100, L501.5200, L500.2500, M100.651, L300.3900, L300.4310, L501.1800 #### [facility] [address] [place], [address] Absolute Neut 5.1 X10 3/uL Normal 2.0-7.7 [facility] Comment on above: Performed By: #### L 100.0100, L501.5200, L500.2500, M100.651, L300.3900, L300.4310, L501.1800 #### [facility] [address] [place], [address] Basophils/100 WBC (Bld) 0.9 % Normal 0-1 [facility] Comment on above: Performed By: #### L 100.0100, L501.5200, L500.2500, M100.651, L300.3900, L300.4310, L501.1800 #### [facility] [address] [place], [address] Eosinophils/100 WBC (Bld) 2.1 % Normal 0-5 [facility] Comment on above: Performed By: #### L 100.0100, L501.5200, L500.2500, M100.651, L300.3900, L300.4310, L501.1800 #### [facility] [address] [place], [address] Erythrocyte distribution width (RBC) [Ratio] 14.3 % Normal 11.6-14.6 [facility] Comment on above: Performed By: #### L 100.0100, L501.5200, L500.2500, M100.651, L300.3900, L300.4310, L501.1800 #### [facility] [address] [place], [address] Hematocrit (Bld) [Volume fraction] 41.5 % Normal 37-47 [facility] Comment on above: Performed By: #### L 100.0100, L501.5200, L500.2500, M100.651, L300.3900, L300.4310, L501.1800 #### [facility] [address] [place], [address] Hemoglobin (Bld) [Mass/Vol] 13.4 g/dL Normal 12.0-15.0 [facility] Comment on above: Performed By: #### L 100.0100, L501.5200, L500.2500, M100.651, L300.3900, L300.4310, L501.1800 #### [facility] [address] [place], [address] IG% 0.400 Normal 0.0-0.9 [facility] Comment on above: Result Comment: IG% - Immature Granulocytes (promyelocytes, myelocytes and metamyelocytes) > 1% indicates that a LEFT SHIFT is Present. Performed By: #### L 100.0100, L501.5200, L500.2500, M100.651, L300.3900, L300.4310, L501.1800 #### [facility] [address] [place], [address] Lymphocytes/100 WBC (Bld) 26.3 % Normal 19-41 [facility] Comment on above: Performed By: #### L 100.0100, L501.5200, L500.2500, M100.651, L300.3900, L300.4310, L501.1800 #### [facility] [address] [place], [address] MCH (RBC) [Entitic mass] 29.4 pg Normal 27.0-32.0 [facility] Comment on above: Performed By: #### L 100.0100, L501.5200, L500.2500, M100.651, L300.3900, L300.4310, L501.1800 #### [facility] [address] [place], [address] MCHC (RBC) [Mass/Vol] 32.3 g/dL Normal 32-36 [facility] Comment on above: Performed By: #### L 100.0100, L501.5200, L500.2500, M100.651, L300.3900, L300.4310, L501.1800 #### [facility] [address] [place], [address] MCV (RBC) [Entitic vol] 91.0 fL Normal 81-99 [facility] Comment on above: Performed By: #### L 100.0100, L501.5200, L500.2500, M100.651, L300.3900, L300.4310, L501.1800 #### [facility] [address] [place], [address] Monocytes/100 WBC (Bld) 6.7 % Normal 0-10 [facility] Comment on above: Performed By: #### L 100.0100, L501.5200, L500.2500, M100.651, L300.3900, L300.4310, L501.1800 #### [facility] [address] [place], [address] Neutrophils/100 WBC (Bld) 63.6 % Normal 47-70 [facility] Comment on above: Performed By: #### L 100.0100, L501.5200, L500.2500, M100.651, L300.3900, L300.4310, L501.1800 #### [facility] [address] [place], [address] Nucleated RBC (Bld) [#/Vol] 0 10*3/uL Normal 0-5 [facility] Comment on above: Performed By: #### L 100.0100, L501.5200, L500.2500, M100.651, L300.3900, L300.4310, L501.1800 #### [facility] [address] [place], [address] Platelet mean volume (Bld) [Entitic vol] 9.6 fL Normal 6.2-12.0 [facility] Comment on above: Performed By: #### L 100.0100, L501.5200, L500.2500, M100.651, L300.3900, L300.4310, L501.1800 #### [facility] [address] [place], [address] Platelets (Bld) [#/Vol] 332 10*3/uL Normal 150-450 [facility] Comment on above: Performed By: #### L 100.0100, L501.5200, L500.2500, M100.651, L300.3900, L300.4310, L501.1800 #### [facility] [address] [place], [address] RBC (Bld) [#/Vol] 4.56 10*6/uL Normal 4.2-5.4 [facility] Comment on above: Performed By: #### L 100.0100, L501.5200, L500.2500, M100.651, L300.3900, L300.4310, L501.1800 #### [facility] [address] [place], [address] RDW SD 47.8 fl High 35.1-43.9 [facility] Comment on above: Performed By: #### L 100.0100, L501.5200, L500.2500, M100.651, L300.3900, L300.4310, L501.1800 #### [facility] [address] [place], [address] WBC (Bld) [#/Vol] 8.1 10*3/uL Normal 4.4-11.0 [facility] Comment on above: Performed By: #### L 100.0100, L501.5200, L500.2500, M100.651, L300.3900, L300.4310, L501.1800 #### [facility] [address] [place], [address] MR/PATTimo 11-14-2024 MR/PAT.NISSA [facility] Medical Records Department [address] [place] [address] PAT - Anesthesia 11/14/24 1614 MR#: [id number] Acct: [id number] Name: MEG BORDEN Rep #: [id number] : 1950 74 From: Jyoti Dave MD PCP: Dr. 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 When Was Last Pacemaker Check QUESTION #4 FULL TEXT: You/Your Family Experience fever (hyperthermia) with Anesthesia Last Oral Intake Last Oral intake: Last Oral Intake NPO since Meds taken in AM with sips of water? Meds patient instructed to take am of surgery PONV PONV - welding inspector: PONV - welding inspector Female Yes 11/11/24 08:17 HX of Motion Sickness No 11/11/24 08:17 HX of N/V After Surgery No 11/11/24 08:17 Non-Smoker Yes 11/11/24 08:17 Duration of Surgery greater Yes 11/11/24 08:17 than 60 minutes Number of Risk Factors 3 11/11/24 08:17 PONV Score Moderate Risk 11/11/24 08:17 Height Weight Height Weight: Anesthesia: Height Weight Height 5 ft 2 in 10/30/23 07:33 Respiratory Assessment Respiratory Assessment - welding inspector: Respiratory Tract Infection Hx - welding inspector Hx Respiratory Tract Infection No 11/11/24 08:17 STOP Sleep Apnea STOP Sleep Apnea - welding inspector: STOP Sleep Apnea - welding inspector Hx Hypertension No 11/11/24 08:17 Hx Sleep Apnea No 11/11/24 08:17 CPAP BIPAP Do you snore loudly (louder No 11/11/24 08:17 than talking or can be heard Do you often feel tired/ No 11/11/24 08:17 fatigued/ sleepy during daytime? Has anyone observed you stop No 11/11/24 08:17 breathing during sleep? STOP Results Negative 11/11/24 08:17 QUESTION #5 FULL TEXT : Do you snore loudly (louder than talking or can be heard through closed doors)? 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 Specify any problems Hx of Preganancy in last 3 N/A 11/11/24 08:17 Months Nurse Filling Out Transfusion NBUCHER 11/11/24 08:17 Questions: Date: 11/11/24 11/11/24 08:17 Time: 08:20 11/11/24 08:17 Patient unable to answer at this time (ie. confused, unrespo /Reproduction History /Reproductive History - welding inspector: /Reproductive Hx- welding inspector Hx Now No 11/11/24 08:17 Gestational Age (in weeks): EDC: Hx Hx Para Hx Section SAB No 11/11/24 08:17 PFSH Medical History (Updated 11/11/24 @ 08:32 by Jackie Canchola) Post-menopausal Wears glasses Cancer Walker as ambulation aid Arthritis Anemia High cholesterol Chronic cough Non-smoker History of edema History of stress test Pneumonia Incontinence Bruising, spontaneous Asthma Knee pain Hay fever Shortness of breath History of breast cancer Home Medications ???Medication ???Instructions ???Recorded ???Last Taken ???Type Folate 800 mcg PO DAILY 11/11/24 Unknown History cholecalciferol (vitamin D3) 50 75 mcg PO DAILY 11/11/24 Unknown H istory mcg (2,000 unit) tablet (Vitamin D3) cyanocobalamin (vitamin B-12) 1,000 mcg PO QODAY 11/11/24 Unknow n History 1,000 mcg capsule ferrous sulfate 325 mg (65 mg 325 mg PO QODAY 11/11/24 Unknown H istory iron) tablet (Feosol) Allergy/AdvReac Type Severity Reaction Status Date / Time Sulfa (Sulfonamide Allergy Hives Verified (more content not included)... Normal [facility] Magnesiumon 11-14-2024 Magnesium [Mass/Vol] 2.3 mg/dL High 1.5-2.2 [facility] Comment on above: Performed By: #### L 100.0100, L501.5200, L500.2500, M100.651, L300.3900, L300.4310, L501.1800 ####[facility] [address] [place], [place], [id number] Partial Thromboplast Timeon 11-14-2024 aPTT Coag (Bld) [Time] 28.1 s Normal 24.1-36.2 [facility] Comment on above: Performed By: #### L 100.0100, L501.5200, L500.2500, M100.651, L300.3900, L300.4310, L501.1800 #### [facility] [address] [place], [place], [address] Prothrombin Time w/INRon INR Coag (PPP) [Relative time] 0.9 {INR} Normal [facility] Comment on above: Performed By: #### L 100.0100, L501.5200, L500.2500, M100.651, L300.3900, L300.4310, L501.1800 #### [facility] [address] [place], [address] PT Coag (PPP) [Time] 12.5 s Normal 11.7-14.9 [facility] Comment on above: Performed By: #### L 100.0100, L501.5200, L500.2500, M100.651, L300.3900, L300.4310, L501.1800 #### [facility] [address] [place], [address] Extremity Lower without Cont raon 10-07-2024 Extremity Lower without Contra [facility] Imaging Services [address] [facility] [place] [address] Extremity Lower without Contra MR#: [id number] Acct: [id number] Name: MEG BORDEN Rep #: [id number] : 1950 F 74 From: Kaleb Clifton MD PCP: Dr. Darinel Escamilla MD Status: REG CLI Study: Extremity Lower without Contra Date of Exam: 0 10/07/24 Exam# [id number] Ordering Dr: Sulaiman Love MD PROCEDURE: EXTREMITY LOWER WITHOUT CONTRA 10/07/2024 REASON FOR EXAM: UNILATERAL PRIMARY OSTEOARTHRITIS, LT KNEE, WEN TECHNIQUE: EXTREMITY LOWER WITHOUT CONTRA Coronal and Sagittal reconstruction series were provided. CONTRAST: None One or more dose reduction techniques were used (e.g., Automated exposure control, adjustment of the mA and/or kV according to patient size, use of iterative reconstruction technique). RADIATION DOSE SUMMARY: DLP: 1292.91 mGycm COMPARISON: None FINDINGS: Bones: There is moderate to severe tricompartment osteoarthritis, most severe in the medial compartment. There is joint space narrowing and marginal osteophytes. There is a 3 cm Levy's cyst. There is a small joint effusion. Soft tissues are unremarkable. There is no visible atherosclerosis. CT/Extremity Lower without Contra IMPRESSION: There is moderate to severe tricompartment osteoarthritis, most severe in the medial compartment. There is joint space narrowing and marginal osteophytes. There is a 3 cm Levy's cyst. There is a small joint effusion. [facility] CC: Dr. Darinel Escamilla MD; Dr. Sulaiman Love MD Employee Relations Assistant: Signed Normal [facility] Bone density reportOrdered B y: Rod Mckeon on 07-25-2024 Study report Skeletal system DXA [facility] Imaging Services [address] [place], [place] [address] Dexa Bone Density Study MR#: [id number] Acct: [id number] Name: MEG BORDEN Rep #: [id number] : 1950 F 73 From: Cruz Mckeon MD PCP: Dr. 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 Postmenopausal. TECHNIQUE: DXA scan of the lumbar spine and both hips using make and model. REFERENCE LINKS: ISCD Adult Positions COMPARISON: None FINDINGS: BMD and T-SCORES Lumbar spine: 1.274 g/cm2, T-Score 2.1 L1 through L4 Left femoral neck: 0.754 g/cm2, T-Score -0.9 Femoral neck comparison data not recommended for monitoring change. Left total hip: 0.984 g/cm2, T-Score 0.3 Change from prior: 1.9 Right femoral neck: 0.823 g/cm2, T-Score -0.2 Femoral neck comparison data not recommended for monitoring change. Right total hip: 0.971 g/cm2, T-Score 0.2 BD/Dexa Bone Density Study IMPRESSION: NORMAL T-SCORES. Recommend follow-up as clinically warranted. Reading Location: [facility] CC: Chet Damon; Dr. Darinel Escamilla MD ~ Employee Relations Assistant: Signed [facility] Breast imaging reportOrdered By: Alie Mcintosh on 07-24-2024 Study report [facility] Imaging Services [address] [place] [address] SCRN MAMM (CAD)W/MK BILAT MR#: [id number] Acct: [id number] Name: MEG BORDEN Rep #: [id number] : 1950 F 73 From: Gladis Mcintosh MD PCP: Dr. Darinel Escamilla MD Status: REG CL I Study:SCRN MAMM (CAD)W/MK BILAT Date of Exa m: 07/24/24 Exam# [id number] Ordering Dr: Chet Damon NP EXAM: SCRN MAMM (CAD)W/MK BILAT 07/24/2024 CLINICAL HISTORY: F, Age 73 y/o, screening. Personal history of right breast cancer status post lumpectomy and radiation and tamoxifen in 1999. TECHNIQUE: Bilateral screening digital breast tomosynthesis with 2D and 3D images. Computeraided detection. COMPARISON: No priors available FINDINGS: TISSUE DENSITY: The breast tissue is composed of scattered area of fibroglandular density. Bilateral Breast Mammographic Findings: There are postsurgical changes with associated large dystrophic calcifications in the upper outer right breast at posterior depth. No significant masses, calcifications or other abnormalities are identified. BI/SCRN MAMM (CAD)W/MK BILAT IMPRESSION: Right Breast: BIRADS 2 BENIGN FINDING. Left Breast: BIRADS 1 NEGATIVE. OVERALL FINAL ASSESSMENT: BIRADS 2 BENIGN FINDING. RECOMMENDATION: Routine annual follow-up in 1 Year A letter with findings and recommendations will be mailed to the patient. Reading Location: [facility] CC: Chet Damon; Dr. Darinel Escamilla MD ~ Employee Relations Assistant: Signed [facility] Dexa Bone Density Studyon Dexa Bone Density Study [facility] Imaging Services [address] [place], [place] [id number] Dexa Bone Density Study MR#: [id number] Acct: [id number] Name: MEG BORDEN Rep #: [id number] : 1950 F 73 From: Rod goodman MD PCP: Dr. Darinel Escamilla MD Status: REG CLI Study: Dexa Bone Density Study Date of Exam: 07/24/24 Exam# [id number] Ordering Dr: Chet Damon NP, NP -C PROCEDURE: DEXA BONE DENSITY STUDY 07/24/2024 REASON FOR EXAM: F, age 73 y/o . Postmenopausal. TECHNIQUE: DXA scan of the lumbar spine and both hips using make and model. REFERENCE LINKS: ISCD Adult Positions COMPARISON: None FINDINGS: BMD and T-SCORES Lumbar spine: 1.274 g/cm2, T-Score 2.1 L1 through L4 Left femoral neck: 0.754 g/cm2, T-Score -0.9 Femoral neck comparison data not recommended for monitoring change. Left total hip: 0.984 g/cm2, T-Score 0.3 Change from prior: 1.9 Right femoral neck: 0.823 g/cm2, T-Score -0.2 Femoral neck comparison data not recommended for monitoring change. Right total hip: 0.971 g/cm2, T-Score 0.2 BD/Dexa Bone Density Study IMPRESSION: NORMAL T-SCORES. Recommend follow-up as clinically warranted. Reading Location: [facility] CC: Chet Damon; Dr. Darinel Escamilla MD Employee Relations Assistant: Signed Normal [facility] SCRN MAMM (CAD)W/MK BILATo n 07-24-2024 SCRN MAMM (CAD)W/MK BILAT [facility] Imaging Services [address] [place], [place] [id number] SCRN MAMM (CAD)W/MK BILAT MR#: [id number] Acct: [id number] Name: MEG BORDEN Rep #: [id number] : 1950 F 73 From: Alie Mcintosh MD PCP: Dr. Darinel Escamilla MD Status: REG CLI Study: SCRN MAMM (CAD)W/MK BILAT Date of Exam: 06/18 Exam# [id number] Ordering Dr: Chet Damon NP POT LINING SUPERVISOR -C EXAM: SCRN MAMM (CAD)W/MK BILAT 07/24/2024 CLINICAL HISTORY: F, Age 73 y/o, screening. Personal history of right breast cancer status post lumpectomy and radiation and tamoxifen in 1999. TECHNIQUE: Bilateral screening digital breast tomosynthesis with 2D and 3D images. Computer aided detection. COMPARISON: No priors available FINDINGS: TISSUE DENSITY: The breast tissue is composed of scattered area of fibroglandular density. Bilateral Breast Mammographic Findings: There are postsurgical changes with associated large dystrophic calcifications in the upper outer right breast at posterior depth. No significant masses, calcifications or other abnormalities are identified. BI/SCRN MAMM (CAD)W/MK BILAT IMPRESSION: Right Breast: BIRADS 2 BENIGN FINDING. Left Breast: BIRADS 1 NEGATIVE. OVERALL FINAL ASSESSMENT: BIRADS 2 BENIGN FINDING. RECOMMENDATION: Routine annual follow-up in 1 Year A letter with findings and recommendations will be mailed to the patient. Reading Location: [facility] CC: Chet HARDING NP-Rome Damon; Dr. Darinel Escamilla MD Employee Relations Assistant: Signed Normal [facility] Knee 4 or More Viewson 07-19 Knee 4 or More Views [facility] Imaging Services [address] [place] [address] Knee 4 or More Views MR#: [id number] Acct: [id number] Name: MEG BORDEN Rep #: [id number] : 1950 F 73 From: Barrington Roes i, DO PCP: Dr. Darinel Escamilla MD Status: REG CLI Study: Knee 4 or More Views Date of Exam: 07/19/24 Exam# [id number] Ordering Dr: Darinel Escamilla MD PROCEDURE: Left knee radiographs, four views 07/19/2024 REASON FOR EXAM: LEFT KNEE INJURY TECHNIQUE: Four views of the left knee were obtained. COMPARISON: None available FINDINGS: Four views of the left knee were obtained. Bones are osteopenic. No acute fracture or dislocation of the left knee. Moderate degenerative change of the lateral and patellofemoral compartments. Severe degenerative change of the medial compartment. Small suprapatellar effusion. RAD/Knee 4 or More Views IMPRESSION: Osteoarthritis. No acute bony abnormality of the left knee. Moderate/severe tricompartmental degenerative changes of the left knee, greatest involving the medial compartment. Small suprapatellar effusion. Reading Location: [facility] CC: Dr. Darinel Escamilla MD Employee Relations Assistant: Signed Normal [facility] Calculated very low density lipoprotein (VLDL) cholesterol measurementOrdered By: Chet Damon on 07-09-2024 Calculated very low density lipoprotein (VLDL) cholesterol measurement 21 mg/dL 5-40 [facility] VLDL Cholesterol 21 mg/dL 5-40 [facility] Hemoglobin A1c percentageOrd ered By: Chet Damon on 07-09-2024 HbA1c (Bld) [Mass fraction] 5.6 % Low <=5.6 [facility] Comment on above: Order Comment: Order Date: 07/08/24 Order Info: [id number] - A1C Comments: diabetes screening Performed By: #### L 501.9985 #### [facility] [address] [place], [address] LDL calc ser/plasOrdered By: Chet Damon on 07-09-2024 Cholesterol in LDL [Mass/Vol] 110 mg/dL Normal [facility] Comment on above: Gspuogkzfv=944-145 m g/dL & Higher Kyxz=287 mg/dL or greater Order Comment: Order Date: 07/08/24Order Info: [id number] - LIPIDComments: screening cholesterol Result Comment: Bord itjleo=228-710 mg/dL Higher Jcda=304 mg/dL or greater Performed By: #### L 500.410 ####[facility] [address] [place], [place], [address] LDL Cholesterol, Calculated 110 mg/dL [facility] Comment on above: Mjjqqnutjy=808-521 m g/dL & Higher Xonz=933 mg/dL or greater Lipid Profileon 07-09-2024 CHOL:HDL 2.63 Normal [facility] Comment on above: Order Comment: Order Date: 07/08/24Order Info: [id number] - LIPIDComments: screening cholesterol Performed By: #### L 500.4100 ####[facility] [address] [place], [place], [address] Cholesterol in VLDL [Mass/Vol] 21 mg/dL Normal 5-40 [facility] Comment on above: Order Comment: Order Date: 07/08/24Order Info: [id number] - LIPIDComments: screening cholesterol Performed By: #### L 500.4100 ####[facility] [address] [place], [place], [address] Screening total cholesterol/ high density lipoprotein (HDL) cholesterol ratioOrdered By: Chet Damon on 07-09-2024 Cholesterol.total/Cho lesterol in HDL [Mass ratio] 2.63 {ratio} [facility] Serum or plasma cholesterol in HDL measurement (mass/volume)Ordered By: Chet Damon on 07-09-2024 Cholesterol in HDL [Mass/Vol] 81 mg/dL Normal [facility] Comment on above: National Cholesterol Education Program (NCEP) guidelines:<40 mg/dL: Low HDL-cholesterol (major risk factor for CHD)>= 60 mg/dL: High HDL-cholesterol (negative risk factor for CHD)HDL-cholesterol is affected by a number of factors, e.g. smoking, exercise, hormones, sex and age. Order Comment: Order Date: 07/08/24Order Info: [id number] - LIPIDComments: screening cholesterol Result Comment: Carmella onal Cholesterol Education Program (NCEP) guidelines: <40 mg/dL: Low HDL-cholesterol (major risk factor for CHD) >= 60 mg/dL: High HDL-cholesterol (negative risk factor for CHD) HDL-cholesterol is affected by a number of factors, e.g. smoking, exercise, hormones, sex and age. Performed By: #### L 500.4100 ####[facility] [address] [place], [address] Serum or plasma cholesterol measurement (mass/volume)Ordered By: Chet Damon on 07-09-2024 Cholesterol [Mass/Vol] 212 mg/dL High <=200 [facility] Comment on above: Cholesterol level, D esirable <200 mg/dLBorderline high cholesterol 200-239 mg/dLHigh cholesterol >=240 mg/dLRecommendations of the NCEP Adult Treatment Panel for the following risk-cutoff thresholds for the [place] population. Order Comment: Order Date: 07/08/24Order Info: [id number] - LIPIDComments: screening cholesterol Result Comment: Chol esterol level, Desirable <200 mg/dL Borderline high cholesterol 200-239 mg/dL High cholesterol >=240 mg/dL Recommendations of the NCEP Adult Treatment Panel for the following risk-cutoff thresholds for the [place] population. Performed By: #### L 500.4100 ####[facility] [address] [place], [address] Triglycerides measurementOrd ered By: Chet Damon on 07-09-2024 Triglyceride [Mass/Vol] 105 mg/dL Normal [facility] Comment on above: The drugs N-Acetylcy steine and Metamizole may falsely depress this assay. Normal range: <150 mg/dLBorderline High: 150-199 mg/dLHigh: 200-499 mg/dLVery High: >500 mg/dL Order Comment: Order Date: 07/08/24Order Info: [id number] - LIPIDComments: screening cholesterol Result Comment: The drugs N-Acetylcysteine and Metamizole may falsely depress this assay. Normal range: <150 mg/dL Borderline High: 150-199 mg/dL High: 200-499 mg/dL Very High: >500 mg/dL Performed By: #### L 500.4100 ####[facility] [address] [place], [place], [address] CBC W/Diff, Automatedon 12-24 Absolute Lymph 2.16 X10 3/uL Normal 0.83-4.51 [facility] Comment on above: Order Comment: Order Date: 01/16/24Order Info: 183- - CBCD Performed By: #### L 100.0100, L503.6550, L503.0105, L503.6030, L506.0250 ####[facility] [address] [place], [address] Absolute Neut 4.2 X10 3/uL Normal 2.0-7.7 [facility] Comment on above: Order Comment: Order Date: 01/16/24Order Info: 183- - CBCD Performed By: #### L 100.0100, L503.6550, L503.0105, L503.6030, L506.0250 ####[facility] [address] [place], [address] Basophils/100 WBC (Bld) 1.0 % Normal 0-1 [facility] Comment on above: Order Comment: Order Date: 01/16/24Order Info: 018- - CBCD Performed By: #### L 100.0100, L503.6550, L503.0105, L503.6030, L506.0250 ####[facility] [address] [place], [address] Eosinophils/100 WBC (Bld) 3.1 % Normal 0-5 [facility] Comment on above: Order Comment: Order Date: 01/16/24Order Info: 018- - CBCD Performed By: #### L 100.0100, L503.6550, L503.0105, L503.6030, L506.0250 ####[facility] [address] [place], [address] Erythrocyte distribution width (RBC) [Ratio] 14.2 % Normal 11.6-14.6 [facility] Comment on above: Order Comment: Order Date: 01/16/24Order Info: 018-1 - CBCD Performed By: #### L 100.0100, L503.6550, L503.0105, L503.6030, L506.0250 ####[facility] [address] [place], [address] Hematocrit (Bld) [Volume fraction] 41.4 % Normal 37-47 [facility] Comment on above: Order Comment: Order Date: 01/16/24Order Info: 0184-1 - CBCD Performed By: #### L 100.0100, L503.6550, L503.0105, L503.6030, L506.0250 ####[facility] [address] [place], [address] Hemoglobin (Bld) [Mass/Vol] 12.9 g/dL Normal 12.0-15.0 [facility] Comment on above: Order Comment: Order Date: 01/16/24Order Info: 0184-1 - CBCD Performed By: #### L 100.0100, L503.6550, L503.0105, L503.6030, L506.0250 ####[facility] [address] [facility] [place], [address] IG% 0.400 Normal 0.0-0.9 [facility] Comment on above: Order Comment: Order Date: 01/16/24Order Info: [id number] - CBCD Result Comment: IG% - Immature Granulocytes (promyelocytes, myelocytes and metamyelocytes) > 1% indicates that a LEFT SHIFT is Present. Performed By: #### L 100.0100, L503.6550, L503.0105, L503.6030, L506.0250 ####[facility] [address] [place], [address] Lymphocytes/100 WBC (Bld) 30.0 % Normal 19-41 [facility] Comment on above: Order Comment: Order Date: 01/16/24Order Info: 0184-1 - CBCD Performed By: #### L 100.0100, L503.6550, L503.0105, L503.6030, L506.0250 ####[facility] [address] [place], [address] MCH (RBC) [Entitic mass] 28.6 pg Normal 27.0-32.0 [facility] Comment on above: Order Comment: Order Date: 01/16/24Order Info: 183- - CBCD Performed By: #### L 100.0100, L503.6550, L503.0105, L503.6030, L506.0250 ####[facility] [address] [place], [address] MCHC (RBC) [Mass/Vol] 31.2 g/dL Low 32-36 [facility] Comment on above: Order Comment: Order Date: 01/16/24Order Info: 183- - CBCD Performed By: #### L 100.0100, L503.6550, L503.0105, L503.6030, L506.0250 ####[facility] [address] [place], [address] MCV (RBC) [Entitic vol] 91.8 fL Normal 81-99 [facility] Comment on above: Order Comment: Order Date: 01/16/24Order Info: 183- - CBCD Performed By: #### L 100.0100, L503.6550, L503.0105, L503.6030, L506.0250 ####[facility] [address] [place], [address] Monocytes/100 WBC (Bld) 7.5 % Normal 0-10 [facility] Comment on above: Order Comment: Order Date: 01/16/24Order Info: 183-1 - CBCD Performed By: #### L 100.0100, L503.6550, L503.0105, L503.6030, L506.0250 ####[facility] [address] [place], [address] Neutrophils/100 WBC (Bld) 58.0 % Normal 47-70 [facility] Comment on above: Order Comment: Order Date: 01/16/24Order Info: 0184-1 - CBCD Performed By: #### L 100.0100, L503.6550, L503.0105, L503.6030, L506.0250 ####[facility] [address] [place], [address] Nucleated RBC (Bld) [#/Vol] 0 10*3/uL Normal 0-5 [facility] Comment on above: Order Comment: Order Date: 01/16/24Order Info: 0184-1 - CBCD Performed By: #### L 100.0100, L503.6550, L503.0105, L503.6030, L506.0250 ####[facility] [address] [place], [address] Platelet mean volume (Bld) [Entitic vol] 10.0 fL Normal 6.2-12.0 [facility] Comment on above: Order Comment: Order Date: 01/16/24Order Info: 0184-1 - CBCD Performed By: #### L 100.0100, L503.6550, L503.0105, L503.6030, L506.0250 ####[facility] [address] [place], [address] Platelets (Bld) [#/Vol] 358 10*3/uL Normal 150-450 [facility] Comment on above: Order Comment: Order Date: 01/16/24Order Info: 0184-1 - CBCD Performed By: #### L 100.0100, L503.6550, L503.0105, L503.6030, L506.0250 ####[facility] [address] [place], [address] RBC (Bld) [#/Vol] 4.51 10*6/uL Normal 4.2-5.4 [facility] Comment on above: Order Comment: Order Date: 01/16/24Order Info: 018- - CBCD Performed By: #### L 100.0100, L503.6550, L503.0105, L503.6030, L506.0250 ####[facility] [address] [place], [address] RDW SD 47.6 fl High 35.1-43.9 [facility] Comment on above: Order Comment: Order Date: 01/16/24Order Info: 018- - CBCD Performed By: #### L 100.0100, L503.6550, L503.0105, L503.6030, L506.0250 ####[facility] [address] [place], [address] WBC (Bld) [#/Vol] 7.2 10*3/uL Normal 4.4-11.0 [facility] Comment on above: Order Comment: Order Date: 01/16/24Order Info: 018- - CBCD Performed By: #### L 100.0100, L503.6550, L503.0105, L503.6030, L506.0250 ####[facility] [address] [place], [address] Ferritinon 01-16-2024 Ferritin [Mass/Vol] 74 ng/mL Normal 8-252 [facility] Comment on above: Order Comment: Order Date: 01/16/24Order Info: [id number] - IBCOrder Info: 2276-4 - FEROrder Info: 2284-8 - fOLATESN Performed By: #### L 100.0100, L503.6550, L503.0105, L503.6030, L506.0250 ####[facility] [address] [place], [address] Folates, (Folic Acid)on 12-24 FOLATES 19.90 ng/mL Normal 3.1-55.4 [facility] Comment on above: Order Comment: Order Date: 01/16/24Order Info: [id number] - IBCOrder Info: [id number] - FEROrder Info: 2283-11 - fOLATESN Performed By: #### L 100.0100, L503.6550, L503.0105, L503.6030, L506.0250 ####[facility] [address] [place], [address] Iron+Iron Binding Capacityon 01-16-2024 Iron [Mass/Vol] 74 ug/dL Normal 50-170 [facility] Comment on above: Order Comment: Order Date: 01/16/24Order Info: [id number] - IBCOrder Info: [id number] - FEROrder Info: 2283-11 - fOLATESN Performed By: #### L 100.0100, L503.6550, L503.0105, L503.6030, L506.0250 ####[facility] [address] [place], [place], [address] IRON SATURATION 21.0 Normal 15.0-55.0 [facility] Comment on above: Order Comment: Order Date: 01/16/24Order Info: [id number] - IBCOrder Info: [id number] - FEROrder Info: 2283-11 - fOLATESN Performed By: #### L 100.0100, L503.6550, L503.0105, L503.6030, L506.0250 ####[facility] [address] [place], [address] TIBC 353 ug/dL Normal 250-450 [facility] Comment on above: Order Comment: Order Date: 01/16/24Order Info: [id number] - IBCOrder Info: [id number] - FEROrder Info: 2283-11 - fOLATESN Performed By: #### L 100.0100, L503.6550, L503.0105, L503.6030, L506.0250 ####[facility] [address] [place], [address] Vitamin B12on 01-16-2024 Cobalamin (Vitamin B12) [Mass/Vol] 791 pg/mL Normal 211-911 [facility] Comment on above: Order Comment: Order Date: 01/16/24Order Info: 2132-9 - B12 Performed By: #### L 100.0100, L503.6550, L503.0105, L503.6030, L506.0250 ####[facility] [address] [place], [address] Stress Reporton 12-21-2023 Stress Report [facility] [address] [place] [address] MR#: [id number] Acct: [id number] Name: MEG BORDEN Rep #: [id number] : 1950 73 From: Denisa Ramirez MD Primary Care: Dr. Darinel Escamilla MD Status: REG I Referring Dr: Darinel Escamilla MD Sex: F C Stress Test Report Date: 12/21/2023 Procedure: Exercise tolerance test Indications: Dyspnea Consent: Per the patient Procedure: The patient exercised on a Bran protocol for 2 minutes and 19 seconds achieving a peak heart rate of 133 bpm (89% predicted maximal heart rate) with a peak blood pressure 162/90 mmHg and a peak MET capacity of approximately 4.6 MET's. The baseline ECG demonstrated sinus rhythm. The peak exercise ECG demonstrated sinus tachycardia with no diagnostic ischemic changes. There were no cardiac dysrhythmias pretest, during exercise, or recovery. The functional capacity was considered suboptimal. The patient had no complaints of chest discomfort during exercise or recovery. The examination was discontinued secondary to patient's complaints of shortness of breath. Impression: 1. Technically adequate (percent predicted maximal heart rate greater than 85%) exercise tolerance test. 2. Peak exercise ECG with no ischemic changes 3. Patient with complaints of severe shortness of breath in stage one of the Bran protocol. Exercise limited to 2 minutes and 19 seconds only. Poor functional capacity. This note was generated with Apliiqation software. It may contain incorrect words, spelling, and punctuation that were not noted in checking the note before signing. 12/21/23 1039 Date Denisa Ramirez MD CC: Dr. Darinel Escamilla MD Date Dictated: 12/21/231034 Date Transcribed: 12/21/231034 Employee Relations Assistant: TOSIN Signed Normal [facility] POCT SARS-COV-2/FLU/RSV PCR SYMPTOMATIC manually resultedOrdered By: Britta Landeros on 10-18-2023 FLUAV RNA RIOS+probe Ql (Resp) Not detected Not Detected [facility] FLUBV RNA RIOS+probe Ql (Resp) Not detected Not Detected [facility] RSV RNA RIOS+probe Ql (Resp) Not detected Not Detected [facility] SARS-CoV-2 (COVID-19) RNA RIOS+probe Ql (Resp) Not detected Not Detected [facility] - Chemistry and C hemistry - challengeOrdered By: Nicol Emanuel on 11-08-2022 Free T4 [Mass/Vol] 0.79 ng/dL 0.76-1.46 [facility] No Panel InformationOrdered By: Nicol Emanuel on 11-08-2022 Free Triiodothyronine (T3) pg/dL 2.4 pg/mL 2.18-3.98 [facility] Thyroglobulin Antibody < 1.0 IU/mL 0.0-0.9 [facility] Comment on above: Thyroglobulin Antibo dy measured by Brian CoulterMethodology Thyroglobulin Level 13.5 ng/mL 1.5-38.5 [facility] Comment on above: According to the [facility] Academy of Clinical Biochemistry,the reference interval for Thyroglobulin (TG) should berelated to euthyroid patients and not for patients whounderwent thyroidectomy. TG reference intervals for thesepatients depend on the residual mass of the thyroid tissueleft after surgery. Establishing a post-operative baselineis recommended. The assay limit of quantitation is 0.1ng/mLThyroglobulin measured by Brian Radha ImmunometricAssay Thyroid Stimulating Hormone (TSH) 4.47 uIU/mL 0.358-3.74 [facility] Serum or plasma thyroperoxid ase antibody assay (units/volume)Ordered By: Nicol Emanuel on 11-08-2022 TPO Ab Qn [IU]/mL 0-34 [facility] Comment on above: Performed at: [address] [id number] Director: Vasiliy Sheriff MD, Phone: [phone] at: [facility] Lab[address] [id number] Director: Saul Moore PhD, Phone: [phone] Thyroid stimulating immunogl obulins detectionOrdered By: Nicol Emanuel on 11-08-2022 Thyroid stimulating immunoglobulins Ql (S) <0.10 IU/L 0.00-0.55 [facility] Absolute lymphocyte countOrd ered By: Nicol Emanuel on 10-26-2022 Lymphocytes Auto (Unsp spec) [#/Vol] 2.34 10*3/uL 0.83-4.51 [facility] Basophil percentageOrdered B y: Nicol Emanuel on 10-26-2022 Basophils/100 WBC (Bld) 1.0 % 0-1 [facility] Bilirubin [Mass/Vol] 0.60 mg/dL 0.20-1.00 [facility] Comment on above: For patients on eltr ombopag therapy, use of Dimension [place] TBIL is not recommended. Chloride [Moles/Vol] 108 mmol/L 98-107 [facility] Cholesterol [Mass/Vol] 222 mg/dL <200 [facility] Comment on above: <200 mg/dL Desirable 200-240 mg/dL Borderline >240 mg/dL High Risk Eosinophils/100 WBC (Bld) 1.3 % 0-5 [facility] Glucose [Mass/Vol] 80 mg/dL 74-106 [facility] Neutrophils (Bld) [#/Vol] 5.3 10*3/uL 2.0-7.7 [facility] Neutrophils/100 WBC (Bld) 63.4 % 47-70 [facility] Potassium [Moles/Vol] 4.5 mmol/L 3.5-5.1 [facility] Protein [Mass/Vol] 7.5 g/dL 6.4-8.2 [facility] Sodium [Moles/Vol] 137 mmol/L 136-145 [facility] Triglyceride [Mass/Vol] 167 mg/dL <199 [facility] Comment on above: The drugs N-Acetylcy steine and Metamizole may falsely depress this assay.Serum Triglycerides Reference Interval Normal <150 mg/dL Borderline high 150 - 199 mg/dL High 200 - 499 mg/dL Very High > or = 500 mg/dL WBC (Bld) [#/Vol] 8.3 10*3/uL 4.4-11.0 [facility] Blood erythrocytes count (nu mber/volume)Ordered By: Nicol Emanuel on 10-26-2022 RBC (Bld) [#/Vol] 4.77 10*6/uL 4.2-5.4 [facility] Blood hemoglobin measurement (mass/volume)Ordered By: Nicol Emanuel on 10-26-2022 Hemoglobin (Bld) [Mass/Vol] 13.7 g/dL 12.0-15.0 [facility] Blood lymphocytes/100 leukoc ytesOrdered By: Nicol Emanuel on 10-26-2022 Lymphocytes/100 WBC (Bld) 28.1 % 19-41 [facility] Blood monocytes/100 leukocyt esOrdered By: Nicol Emanuel on 10-26-2022 Monocytes/100 WBC (Bld) 6.1 % 0-10 [facility] Blood platelet mean volumeOr dered By: Nicol Emanuel on 10-26-2022 Platelet mean volume (Bld) [Entitic vol] 9.9 fL 6.2-12.0 [facility] Determination of erythrocyte mean corpuscular volume (MCV)Ordered By: Nicol Emanuel on 10-26-2022 MCV (RBC) [Entitic vol] 90.4 fL 81-99 [facility] Hematocrit Auto (Bld) [Volum e fraction]Ordered By: Nicol Emanuel on 10-26-2022 Hematocrit (Bld) [Volume fraction] 43.1 % 37-47 [facility] Laboratory - Chemistry and C hemistry - challengeOrdered By: Nicol Emanuel on 10-26-2022 ALP [Catalytic activity/Vol] 106 U/L 45-117 [facility] ALT [Catalytic activity/Vol] 22 U/L 13-56 [facility] CO2 [Moles/Vol] 24.0 mmol/L 21.0-32.0 [facility] Cobalamin (Vitamin B12) [Mass/Vol] 429 pg/mL 211-911 [facility] Globulin (S) [Mass/Vol] 3.8 g/dL 2.2-4.2 [facility] Magnesium [Mass/Vol] 2.4 mg/dL 1.6-2.6 [facility] Urea nitrogen/Creatinine [Mass ratio] 24.1 mg/mg 10-20 [facility] Laboratory - Hematology and Cell countsOrdered By: Nicol Emanuel on 10-26-2022 Erythrocyte distribution width (RBC) [Entitic vol] 47.9 fL 35.1-43.9 [facility] Erythrocyte distribution width (RBC) [Ratio] 14.5 % 11.6-14.6 [facility] Immature granulocytes/100 WBC (Bld) 0.100 % 0.0-0.9 [facility] Comment on above: IG% - Immature Granu locytes (promyelocytes, myelocytes and metamyelocytes) > 1% indicates that a LEFT SHIFT is Present. MCH (RBC) [Entitic mass] 28.7 pg 27.0-32.0 [facility] Nucleated RBC/100 WBC (Bld) [Ratio] 0 % 0-5 [facility] MCHC Auto (RBC) [Mass/Vol]Or dered By: Nicol Emanuel on 10-26-2022 MCHC (RBC) [Mass/Vol] 31.8 g/dL 32-36 [facility] No Panel InformationOrdered By: Nicol Emanuel on 10-26-2022 Estimated GFR (MDRD) Amer 99 mL/min >60 [facility] Comment on above: GFR Calc Estimated GFR (MDRD) Non-Af Amer 82 mL/min >60 [facility] Comment on above: Non- GFR Calc Thyroid Stimulating Hormone (TSH) 6.00 uIU/mL 0.358-3.74 [facility] Platelets bldOrdered By: Lul Emanuel on 10-26-2022 Platelets (Bld) [#/Vol] 377 10*3/uL 150-450 [facility] Serum or plasma albumin brendon urement (mass/volume)Ordered By: Nicol Emanuel on 10-26-2022 Albumin [Mass/Vol] 3.7 g/dL 3.2-5.0 [facility] Serum or plasma albumin/glob ulin mass ratioOrdered By: Nicol Emanuel on 10-26-2022 Albumin/Globulin [Mass ratio] 1.0 {ratio} 0.9-2.4 [facility] Serum or plasma calcium brendon urement (mass/volume)Ordered By: Nicol Emanuel on 10-26-2022 Calcium [Mass/Vol] 9.2 mg/dL 8.5-10.1 [facility] Serum or plasma cholesterol in HDL measurement (mass/volume)Ordered By: Nicol Emanuel on 10-26-2022 Cholesterol in HDL [Mass/Vol] 63 mg/dL >40 [facility] Comment on above: The drugs N-Acetylcy steine and Metamizole may falsely depress this assay. Reference Range HDL <40 mg/dL Low HDL Cholesterol HDL >or= 60 mg/dL High HDL Cholesterol Serum or plasma cholesterol in VLDL measurement (mass/volume)Ordered By: Nicol Emanuel on 10-26-2022 Cholesterol in VLDL [Mass/Vol] 33 mg/dL 5-40 [facility] Serum or plasma creatinine m easurement (mass/volume)Ordered By: Nicol Emanuel on 10-26-2022 Creatinine [Mass/Vol] 0.75 mg/dL 0.55-1.02 [facility] Comment on above: The validity of the calculated GFR & GFRAA in patients over 70 years has not been determined. Clinical correlation is essential. Serum or plasma low density lipoprotein (LDL) cholesterol measurement (mass/volume)Ordered By: Nicol Emanuel on 10-26-2022 Cholesterol in LDL [Mass/Vol] 126 mg/dL 0-130 [facility] Serum or plasma urea nitroge n measurement (mass/volume)Ordered By: Nicol Emanuel on 10-26-2022 Urea nitrogen [Mass/Vol] 18 mg/dL 7-18 [facility] Thin prep Papanicolaou smear with manual screeningOrdered By: Nicol Emanuel on 10-26-2022 Thin prep Papanicolaou smear with manual screening 20 U/L 15-37 [facility] Thin prep Papanicolaou smear with manual screening 08 26- [facility] Whole blood hemoglobin A1c/t otal hemoglobin ratio (mass fraction)Ordered By: Nicol Jenae on 10-26-2022 HbA1c (Bld) [Mass fraction] 5.2 % 3.8-5.6 [facility] Comment on above: Normal < 5.7 % Predi abetic 5.7 - 6.4 % Diabetic >or= 6.5 % Please note range changes. Provider Note - ED v2on Provider Note - ED v2 Provider Note - ED v2: Chart Review: HISTORY OF PRESENTING ILLNESS MEG is a 69 year old Female and was seen by me at 28-Apr-2020 10:52 for a chief complaint of (Dental infection). Other complaints include: Patient presents for evaluation of possible dental infection. Patient reports several days of progressively worsening pain, inflammation, and eventual purulent drainage involving the left maxillary molars. Patient states that sometime ago, tooth #2 which has a filling broke posteriorly and since has progressively become more symptomatic over time. Patient denies fever, chills, nausea, vomiting, or other constitutional signs symptoms. No other complaints.. Triage Information: Most recent Vital Sign Value Date PAST MEDICAL HISTORY ATTESTATION: I have reviewed and confirmed nurse's/medic's notes for patient's medications, allergies, and medical, surgical, family and social history ALLERGIES/INTOLERANCES : Allergy Allergen: codeine Type: Drug Reaction: Other Allergen: sulfa drugs Type: Drug Category Reaction: Hives/Urticaria HEALTH HISTORY: No documented data. OUTPATIENT MEDICATIONS: Home Medications Review Status for Reconciliation: Complete Med Status: Patient Currently Takes Medications Drug Name: Low Dose ASA 81 mg oral tablet Instructions: null SIGNIFICANT EVENTS: Past Surgical History Description:knee , rt side lumpectomy ,c section X 2 , t&a Social/Behavioral Description:patient denies REVIEW OF SYSTEMS REVIEW OF SYSTEMS: Comments Review of Systems Constitutional: See HPI ENT: See HPI Neurologic: Alert and oriented X4, No numbness, No tingling. All other systems are negative PHYSICAL EXAM CONSTITUTIONAL: Well appearing, well nourished, awake, alert, oriented to person, place, time/situation and in no apparent distress. HENMT: Posterior aspect of tooth #2 is broken off leaving the filling in anterior aspect of the 2; no inflammation or erythema noted; tenderness of the maxillary sinus just superior to this tooth noted; otherwise unremarkable oropharynx; no nasal congestion; no cervical lymph node tenderness EYES: Clear bilaterally, pupils equal, round and reactive to light. MUSCULOSKELETAL: Spine appears normal, range of motion is not limited, no muscle or joint tenderness. NEUROLOGICAL: Alert and oriented, no focal deficits, no motor or sensory deficits. SKIN: Skin normal color for race, warm, dry and intact. No evidence of trauma. MEDICAL DECISION MAKING/ED COURSE MDM/ED COURSE: Exam and presentation is fairly unremarkable however, history is consistent with tooth infection. Patient is scheduled to see dentist in 1 month. Prescription for Augmentin. Patient's clinical presentation is otherwise unremarkable at this time. Patient is discharged with instructions to follow-up with primary care or seek emergency medical attention for worsening symptoms or any new concerns. CLINICAL IMPRESSION Diagnosis/Annotation: ED Dx Name:Infection of tooth Code:K04.7 Disposition: discharged Type: home ATTESTATION CRITICAL CARE TIME Is this a critically ill patient: no Electronic Signatures: Gregorio Santoro (PAC) (Signed 28-Apr-2020 11:08) Authored: HPI, PMH, ROS, PE, MDM/ED Course, Clinical Impression, Attestation, Chart Review, Scores Last Updated: 28-Apr-2020 11:08 by Gregorio Santoro (PAC) [facility] CALCIFEDIOL ([id number])Ordered B y: Clay Machine Operator on 10-18-2016 25-Hydroxyvitamin D2+25-Hydroxyvitamin D3 [Mass/Vol] 26.4 ng/mL Abnormal 30.0-100.0 [facility] Work Phone: Comment on above: Vitamin D deficiency has been defined by the [place] ofMedicine and an Endocrine Society practice guideline as alevel of serum 25-OH vitamin D less than 20 ng/mL (1,2).The Endocrine Society went on to further define vitamin Dinsufficiency as a level between 21 and 29 ng/mL (2).1. IOM ([place] of [employer]). 2010. Dietary reference intakes for calcium and D. [place]: The National Academies Press.2. Barrie FARRAR, Bekah WRIGHT, Liam LEE, et al. Evaluation, treatment, and prevention of vitamin D deficiency: an Endocrine Society clinical practice guideline. JCEM. 2010; 96(7):1911-30. PATIENT WAS FASTINGP ERFORMED BY: CB [facility] [id number] [place] [id number] LIPID PANEL ([id number])Ordered B y: Clay Machine Operator on 10-18-2016 Cholesterol [Mass/Vol] 229 mg/dL Abnormal 100-199 [facility] Work Phone: Comment on above: PATIENT WAS FASTINGP ERFORMED BY: ANGELIA [facility] [id number] [place] [id number] Cholesterol in HDL [Mass/Vol] 86 mg/dL Normal [facility] Work Phone: Comment on above: PATIENT WAS FASTINGP ERFORMED BY: ANGELIA [facility] [id number] [place] [id number] Cholesterol in LDL [Mass/Vol] 123 mg/dL Abnormal 0-99 [facility] Work Phone: Comment on above: PATIENT WAS FASTINGP ERFORMED BY: ANGELIA [facility] [id number] [place] [id number] Cholesterol in LDL/Cholesterol in HDL [Mass ratio] 1.4 {ratio_units} Normal 0.0-3.2 [facility] Work Phone: Comment on above: LDL/HDL Ratio Men Wo men 1/2 Avg.Risk 1.0 1.5 Avg.Risk 3.6 3.2 2X Avg.Risk 6.2 5.0 3X Avg.Risk 8.0 6.1 PATIENT WAS FASTINGP ERFORMED BY: ANGELIA [facility] [address] [place] [id number] Cholesterol in VLDL [Mass/Vol] 20 mg/dL Normal 5-40 [facility] Work Phone: Comment on above: PATIENT WAS FASTINGP ERFORMED BY: CB [facility] [address] [place] [id number] Triglyceride [Mass/Vol] 98 mg/dL Normal 0-149 [facility] Work Phone: Comment on above: PATIENT WAS FASTINGP ERFORMED BY: [facility] [address] [place] [id number] TSH (THYROID STIMULATING HOR ALDO) ([id number])Ordered By: Clay Machine Operator on 10-18-2016 TSH Qn 1.530 {uIU/mL} Normal 0.450-4.500 [facility] Work Phone: Comment on above: PATIENT WAS FASTINGP ERFORMED BY: [facility] [id number] [place] [id number] CALCIFIDIOL ([id number]) VIT D 25 Ordered By: Clay Machine Operator on 02-08-2016 25-Hydroxyvitamin D2+25-Hydroxyvitamin D3 [Mass/Vol] 23.9 ng/mL Abnormal 30.0-100.0 [facility] Work Phone: Comment on above: Vitamin D deficiency has been defined by the [place] [facility] and an Endocrine Society practice guideline as alevel of serum 25-OH vitamin D less than 20 ng/mL (1,2).The Endocrine Society went on to further define vitamin Dinsufficiency as a level between 21 and 29 ng/mL (2).1. IOM ([place] of Medicine). 2010. Dietary reference intakes for calcium and D. [place]: The National Academies Press.2. Barrie MF, Bekah WRIGHT, Liam LEE, et al. Evaluation, treatment, and prevention of vitamin D deficiency: an Endocrine Society clinical practice guideline. JCEM. 2010; 96(7):1911-30. PATIENT NOT FASTINGP ERFORMED BY: [facility] Yolaxp7230 [address] [facility] [place] [id number] T3, FREE (TRIDOTHYRONINE) (2 5290)Ordered By: Clay Machine Operator on 02-08-2016 Free T3 [Mass/Vol] 3.1 pg/mL Normal 2.0-4.4 [facility] Internal Medicine Work Phone: Comment on above: PATIENT NOT FASTINGP ERFORMED BY: [facility] Dryznj5288 [address] RoadDublin [place] [id number] T4, FREE (THYROXINE) (54708) Ordered By: Clay Machine Operator on 02-08-2016 Free T4 [Mass/Vol] 1.13 ng/dL Normal 0.82-1.77 [facility] Internal Medicine Work Phone: Comment on above: PATIENT NOT FASTINGP ERFORMED BY: [facility] Tgyuve5813 [address] RoadDublin [place] [id number] TSH (51218)Ordered By: Syste m Application Services Manager on 02-08-2016 TSH Qn 3.480 {uIU/mL} Normal 0.450-4.500 [facility] Internal Medicine Work Phone: Comment on above: PATIENT NOT FASTINGP ERFORMED BY: [facility] Aebjhm5332 [address] [facility] [place] [id number] CALCIFIDIOL (31366) VIT D 25 Ordered By: Clay Machine Operator on 07-27-2015 25-Hydroxyvitamin D2+25-Hydroxyvitamin D3 [Mass/Vol] 30.1 ng/mL Normal 30.0-100.0 [facility] Internal Medicine Work Phone: Comment on above: Vitamin D deficiency has been defined by the [place] of[place]icine and an Endocrine Society practice guideline as alevel of serum 25-OH vitamin D less than 20 ng/mL (1,2).The Endocrine Society went on to further define vitamin Dinsufficiency as a level between 21 and 29 ng/mL (2).1. IOM ([place] of [employer]). 2010. Dietary reference intakes for calcium and D. [place]: The National Academies Press.2. Barrie MF, Bekah WRIGHT, Liam LEE, et al. Evaluation, treatment, and prevention of vitamin D deficiency: an Endocrine Society clinical practice guideline. JCEM. 2010; 96(7):1911-30. PATIENT NOT FASTINGP ERFORMED BY: [facility] Rxgrze2368 [facility] [place] [id number] T3, FREE (TRIDOTHYRONINE) (3 6428)Ordered By: Clay Machine Operator on 07-27-2015 Free T3 [Mass/Vol] 2.8 pg/mL Normal 2.0-4.4 [facility] Internal Medicine Work Phone: Comment on above: PATIENT NOT FASTINGP ERFORMED BY: ANGELIA [facility] Vbtvgu1920 [address] RoadDublin [place] [id number] T4, FREE (THYROXINE) (15333) Ordered By: Clay Machine Operator on 07-27-2015 Free T4 [Mass/Vol] 1.17 ng/dL Normal 0.82-1.77 Compre hensive Internal Medicine Work Phone: Comment on above: PATIENT NOT FASTINGP ERFORMED BY: [facility] Gzrgds1058 [address] RoadDublin [place] [id number] Information: [id number] TSH (99500)Ordered By: Syste m Application Services Manager on 07-27-2015 TSH Qn 1.620 {uIU/mL} Normal 0.450-4.500 Comprehen sive Internal Medicine Work Phone: Comment on above: PATIENT NOT FASTINGP ERFORMED BY: ANGELIA [facility] Irpjtj9867 [address] RoadDublin [place] [id number] OLAYINKA (ANTINUCLEAR ANTIBODY) ( 28421)Ordered By: Clay Machine Operator on 04-06-2015 Nuclear Ab Ql (S) Negative Normal Compreh ensive Internal Medicine Work Phone: Comment on above: PATIENT NOT FASTINGP ERFORMED BY: [facility] Hgvrjg5468 [address] RoadDublin [place] [id number] BY: LabCarebase[address] [id number] Nuclear Ab Ql (S) Negative Normal Compreh ensive Internal Medicine; [facility] Work Phone: Comment on above: PATIENT NOT FASTINGP ERFORMED BY: [facility] Nxffae9957 [address] RoadDublin [place] [id number] BY: [facility] [address] [id number] C-REACTIVE PROTEIN (37539)Or dered By: Clay Machine Operator on 04-06-2015 CRP [Mass/Vol] 7.8 mg/L Abnormal 0.0-4.9 Comprehens aubrey Internal Medicine Work Phone: Comment on above: PATIENT NOT FASTINGP ERFORMED BY: CB [facility] Gasgmv6972 [address] RoadDublin [place] [id number] BY: [employer] [address] [id number] CALCIFIDIOL (58865) VIT D 25 Ordered By: Clay Machine Operator on 04-06-2015 25-Hydroxyvitamin D2+25-Hydroxyvitamin D3 [Mass/Vol] 22.5 ng/mL Abnormal 30.0-100.0 [facility] Work Phone: Comment on above: Vitamin D deficiency has been defined by the [place] of[place]icine and an Endocrine Society practice guideline as alevel of serum 25-OH vitamin D less than 20 ng/mL (1,2).The Endocrine Society went on to further define vitamin Dinsufficiency as a level between 21 and 29 ng/mL (2).1. IOM ([place] of [place]). 2010. Dietary reference intakes for calcium and D. [place]: The National Academies Press.2. Barrie MF, Bekah [place], Liam LEE, et al. Evaluation, treatment, and prevention of vitamin D deficiency: an Endocrine Society clinical practice guideline. JCEM. 2010; 96(7):1911-30. PATIENT NOT FASTINGP ERFORMED BY: [employer]6370 StudioEXAt[facility] [id number] BY: Magine[address] [id number] CBC (AUTO) (96640)Ordered By : Clay Machine Operator on 04-06-2015 Erythrocyte distribution width (RBC) [Ratio] 14.3 % Normal 12.3-15.4 [facility] Work Phone: Comment on above: PATIENT NOT FASTINGP ERFORMED BY: [employer] Hqxmde0322 [address] [facility] [id number] BY: Magine[address] [id number] Hematocrit (Bld) [Volume fraction] 40.6 % Normal 34.0-46.6 [facility] Work Phone: Comment on above: PATIENT NOT FASTINGP ERFORMED BY: [employer]6370 [address] [facility] [id number] BY: LabCo[address] [id number] Hemoglobin (Bld) [Mass/Vol] 13.7 g/dL Normal 11.1-15.9 [facility] Internal Medicine Work Phone: Comment on above: PATIENT NOT FASTINGP ERFORMED BY: CB [facility] Chlgeb1769 [address] [facility] [id number] BY: LabCo[address] [id number] MCH (RBC) [Entitic mass] 29.0 pg Normal 26.6-33.0 [facility] Work Phone: Comment on above: PATIENT NOT FASTINGP ERFORMED BY: CB [facility] Vlsify4001 [facility] [id number] BY: Lab[address] [id number] MCHC (RBC) [Mass/Vol] 33.7 g/dL Normal 31.5-35.7 [facility] Internal Medicine Work Phone: Comment on above: PATIENT NOT FASTINGP ERFORMED BY: CB [facility] Xgvluk2876 [facility] [id number] BY: Lab[address] [id number] MCV (RBC) [Entitic vol] 86 fL Normal 79-97 [facility] Internal Medicine Work Phone: Comment on above: PATIENT NOT FASTINGP ERFORMED BY: CB [facility] Kzlsib7508 [facility] [id number] BY: Lab[address] [id number] Platelets (Bld) [#/Vol] 348 {x10E3/uL} Normal 150-379 [facility] Internal Medicine Work Phone: Comment on above: PATIENT NOT FASTINGP ERFORMED BY: CB [facility] Eciglz3789 [facility] [id number] BY: Lab[address] [id number] Platelets (Bld) [#/Vol] 348 10*3/uL Normal 150-379 [facility]; [facility] Work Phone: Comment on above: PATIENT NOT FASTINGP ERFORMED BY: CB [facility] Cvsqxk7326 [address] RoadDublin [place] [id number] BY: [facility] [address] [id number] RBC (Bld) [#/Vol] 4.73 {x10E6/uL} Normal 3.77-5.28 [facility] Internal Medicine Work Phone: Comment on above: PATIENT NOT FASTINGP ERFORMED BY: CB [facility] Yqapbz5285 [address] RoadDublin [place] [id number] BY: [facility] [address] [id number] RBC (Bld) [#/Vol] 4.73 10*6/uL Normal 3.77-5.28 [facility] Internal Medicine; [facility] Work Phone: Comment on above: PATIENT NOT FASTINGP ERFORMED BY: CB [facility] Vndhbw6560 [address] RoadDublin [place] [id number] BY: [facility] [address] [id number] WBC (Bld) [#/Vol] 8.0 {x10E3/uL} Normal 3.4-10.8 [facility] Internal Medicine Work Phone: Comment on above: PATIENT NOT FASTINGP ERFORMED BY: CB [facility] Wouiip0893 [address] RoadDublin [place] [id number] BY: [facility] [address] [id number] WBC (Bld) [#/Vol] 8.0 10*3/uL Normal 3.4-10.8 [facility] Internal Medicine; [facility] Work Phone: Comment on above: PATIENT NOT FASTINGP ERFORMED BY: CB [facility] Ppbumd0516 [address] RoadDublin [place] [id number] BY: [employer] [id number] DHEA-S (DEHYDROEPIANDROSTERO NE SULFATE) (07188)Ordered By: Clay Machine Operator on 04-06-2015 DHEA-S [Mass/Vol] 63.6 ug/dL Normal 29.4-220.5 Compreh ensive Internal Medicine Work Phone: Comment on above: PATIENT NOT FASTINGP ERFORMED BY: [facility] Ewgvrx4548 [facility] [id number] BY: [employer] [id number] FERRITIN (33287)Ordered By: Clay Machine Operator on 04-06-2015 Ferritin [Mass/Vol] 84 ng/mL Normal 15-150 Compr ehensive Internal Medicine Work Phone: Comment on above: PATIENT NOT FASTINGP ERFORMED BY: [facility] Dfsfef5047 [facility] [id number] BY: [employer] [id number] Homocysteine, Plasma (29225) Ordered By: Clay Machine Operator on 04-06-2015 Homocysteine [Moles/Vol] 11.6 umol/L Normal 0.0-15.0 [facility] Work Phone: Comment on above: PATIENT NOT FASTINGP ERFORMED BY: [facility] Xgoznl4329 [facility] [id number] BY: Lab[address] [id number] IRON (24676)Ordered By: Syst em Application Services Manager on 04-06-2015 Iron [Mass/Vol] 49 ug/dL Normal 35-155 Comprehen sive Internal Medicine Work Phone: Comment on above: PATIENT NOT FASTINGP ERFORMED BY: [facility] Usrodk2238 [facility] [id number] BY: [address] [id number] Metabolic Panel, Comprehensi ve (16252)Ordered By: Clay Machine Operator on 04-06-2015 Albumin [Mass/Vol] 4.3 g/dL Normal 3.6-4.8 [facility] Internal Medicine Work Phone: Comment on above: PATIENT NOT FASTINGP ERFORMED BY: CB [facility] Vskvsi4960 [address] [facility] [id number] BY: Lab[address] [id number] Information: [id number] Albumin/Globulin [Mass ratio] 1.5 {ratio} Normal 1.1-2.5 [facility] Work Phone: Comment on above: PATIENT NOT FASTINGP ERFORMED BY: CB [facility] Kagzjj9160 [address] [facility] [id number] BY: [address] [id number] Information: 691349,[id number] ALP [Catalytic activity/Vol] 110 [iU]/L Normal 39-117 [facility] Work Phone: Comment on above: PATIENT NOT FASTINGP ERFORMED BY: CB [facility] Nciltc2296 [facility] [id number] BY: Lab[address] [id number] Information: 495955,D66531 ALP [Catalytic activity/Vol] 110 U/L Normal 39-117 [facility]; [facility] Work Phone: Comment on above: PATIENT NOT FASTINGP ERFORMED BY: CB [facility] Lcpqwh5843 [address] [facility] [id number] BY: [address] [id number] Information: 961156,C56361 ALT [Catalytic activity/Vol] 17 [iU]/L Normal 0-32 [facility] Work Phone: Comment on above: PATIENT NOT FASTINGP ERFORMED BY: CB [facility] Gynrqn1994 [address] [facility] [place] [id number] BY: [facility] HospitalCo[address] [id number] Information: 530425,Y93856 ALT [Catalytic activity/Vol] 17 U/L Normal 0-32 [facility]; [facility] Work Phone: Comment on above: PATIENT NOT FASTINGP ERFORMED BY: CB [facility] Uiftli8407 [address] [facility] [place] [id number] BY: LabCo[address] [id number] Information: 407923,Q24614 AST [Catalytic activity/Vol] 16 [iU]/L Normal 0-40 [facility] Work Phone: Comment on above: PATIENT NOT FASTINGP ERFORMED BY: [facility] Yejnze8223 [address] [facility] [id number] BY: [address] [id number] Information: 098679,G16586 AST [Catalytic activity/Vol] 16 U/L Normal 0-40 [facility]; [facility] Work Phone: Comment on above: PATIENT NOT FASTINGP ERFORMED BY: [facility] Fxibto4824 [address] [facility] [id number] BY: [address] [id number] Information: 327669,G72970 Bilirubin [Mass/Vol] 0.4 mg/dL Normal 0.0-1.2 Comp [facility] Work Phone: Comment on above: PATIENT NOT FASTINGP ERFORMED BY: CB [facility] Strdbh0083 [address] [facility] [place] [id number] BY: Lab[address] [id number] Information: 343172,[id number] Calcium [Mass/Vol] 9.7 mg/dL Normal 8.7-10.3 [facility] Internal Medicine Work Phone: Comment on above: PATIENT NOT FASTINGP ERFORMED BY: CB [facility] Axdwey6622 [address] RoadDublin [place] [id number] BY: [facility] [address] [id number] Information: 379255,Z99438 Chloride [Moles/Vol] 105 mmol/L Normal 97-108 [facility] Work Phone: Comment on above: PATIENT NOT FASTINGP ERFORMED BY: CB [facility] Qjskhe7471 [address] RoadDublin [place] [id number] BY: [facility] [address] [id number] Information: 241820,[id number] CO2 [Moles/Vol] 22 mmol/L Normal 18-29 [facility] Internal Medicine Work Phone: Comment on above: PATIENT NOT FASTINGP ERFORMED BY: CB [facility] Vjcqtl4203 [address] [facility] [id number] BY: Lab[address] [id number] Information: 175696,S75702 Creatinine [Mass/Vol] 0.82 mg/dL Normal 0.57-1.00 [facility] Internal Medicine Work Phone: Comment on above: PATIENT NOT FASTINGP ERFORMED BY: CB [facility] Jbtzrd7466 [address] [facility] [id number] BY: LabCo[address] [id number] Information: 732777,T12696 GFR/1.73 sq M predicted among blacks CKD-EPI (S/P/Bld) [Vol rate/Area] 89 mL/min/1.73 Normal [facility] Work Phone: Comment on above: PATIENT NOT FASTINGP ERFORMED BY: CB [facility] Geveew4469 [address] RoadDuin [place] [id number] BY: LabCo[address] [id number] Information: 531739,M19848 GFR/1.73 sq M predicted among non-blacks CKD-EPI (S/P/Bld) [Vol rate/Area] 77 mL/min/1.73 Normal [facility] Internal Medicine Work Phone: Comment on above: PATIENT NOT FASTINGP ERFORMED BY: CB [facility] Mbmgdu1984 [facility] [id number] BY: LabCo[address] [id number] Information: 392535,I31137 Globulin (S) [Mass/Vol] 2.8 g/dL Normal 1.5-4.5 [facility] Internal Medicine Work Phone: Comment on above: PATIENT NOT FASTINGP ERFORMED BY: CB [facility] Atpjki1924 [facility] [id number] BY: [facility]Carebase[address] [id number] Information: 511924,K30979 Glucose [Mass/Vol] 82 mg/dL Normal 65-99 [facility] Internal Medicine Work Phone: Comment on above: PATIENT NOT FASTINGP ERFORMED BY: CB [facility] Wkeriu5702 [facility] [id number] BY: LabCo[address] [id number] Information: 322610,A44455 Potassium [Moles/Vol] 5.0 mmol/L Normal 3.5-5.2 [facility] Internal Medicine Work Phone: Comment on above: PATIENT NOT FASTINGP ERFORMED BY: CB [facility] Noiaaq2724 [facility] [id number] BY: [address] [id number] Information: 652163,M53592 Protein [Mass/Vol] 7.1 g/dL Normal 6.0-8.5 [facility] Work Phone: Comment on above: PATIENT NOT FASTINGP ERFORMED BY: CB [facility] Qsbgzd9325 [address] [facility] [place] [id number] BY: LabCo[address] [id number] Information: 376954,J58263 Sodium [Moles/Vol] 144 mmol/L Normal 134-144 [facility] Work Phone: Comment on above: PATIENT NOT FASTINGP ERFORMED BY: CB [facility] Zlxtlo4978 [address] [facility] [id number] BY: [facility] [address] [id number] Information: 532386,Y57845 Urea nitrogen [Mass/Vol] 23 mg/dL Normal 8-27 [facility] Work Phone: Comment on above: PATIENT NOT FASTINGP ERFORMED BY: CB [facility] Huvkoo8427 [facility] [id number] BY: LabCo[address] [id number] Information: 562338,E36747 Urea nitrogen/Creatinine [Mass ratio] 28 mg/mg Abnormal 11-26 [facility] Work Phone: Comment on above: PATIENT NOT FASTINGP ERFORMED BY: CB [facility] Bfytpr1138 [facility] [id number] BY: LabCo[address] [id number] Information: 038280,[id number] Methymalonic Acid, Serum (83 921)Ordered By: Clay Machine Operator on 04-06-2015 Methylmalonate [Moles/Vol] 137 nmol/L Normal 0-378 [facility] Work Phone: Comment on above: PATIENT NOT FASTINGP ERFORMED BY: CB [facility] Aboxef4964 [address] [facility] [id number] BY: LabCo[address] [id number] PROLACTIN (96480)Ordered By: Clay Machine Operator on 04-06-2015 Prolactin [Mass/Vol] 8.6 ng/mL Normal 4.8-23.3 Comp rehensive Internal Medicine Work Phone: Comment on above: PATIENT NOT FASTINGP ERFORMED BY: LabKatherine [place] 5159970 [facility] [id number] BY: [address] [id number] RHEUMATOID FACTOR-QUANT (928 48)Ordered By: Clay Machine Operator on 04-06-2015 Rheumatoid factor Qn 10.2 {IU/mL} Normal 0.0-13.9 [facility] Work Phone: Comment on above: PATIENT NOT FASTINGP ERFORMED BY: ANGELIA [place] 7712470 [facility] [id number] BY: [address] [id number] Rheumatoid factor Qn 10.2 [IU]/mL Normal 0.0-13.9 [facility]; [facility] Work Phone: Comment on above: PATIENT NOT FASTINGP ERFORMED BY: ANGELIA LabKatherine [place] 5159970 [facility] [id number] BY: [address] [id number] SED RATE ERYTHROCYTE (84792) Ordered By: Clay Machine Operator on 04-06-2015 ESR (Bld) [Velocity] 19 mm/h Normal 0-40 Comp rehensive Internal Medicine Work Phone: Comment on above: PATIENT NOT FASTINGP ERFORMED BY: [facility] Lhtvpj144[address] [id number] BY: [address] [id number] T3, FREE (TRIDOTHYRONINE) (6 4656)Ordered By: Clay Machine Operator on 04-06-2015 Free T3 [Mass/Vol] 3.2 pg/mL Normal 2.0-4.4 [facility] Internal [facility] Work Phone: Comment on above: PATIENT NOT FASTINGP ERFORMED BY: ANGELIA [facility] Czkafe3652 [address] [facility] [id number] BY: [facility] [id number] T4, FREE (THYROXINE) (21832) Ordered By: Clay Machine Operator on 04-06-2015 Free T4 [Mass/Vol] 0.95 ng/dL Normal 0.82-1.77 [facility] Internal [facility] Work Phone: Comment on above: PATIENT NOT FASTINGP ERFORMED BY: ANGELIA [facility] Qbasfv7147 [address] [facility] [id number] BY: [employer] [address] [id number] TESTOSTERONE FREE (40153)Ord ered By: Clay Machine Operator on 04-06-2015 Testosterone Free [Mass/Vol] 3.3 pg/mL Normal 0.0-4.2 [facility] Internal Medicine Work Phone: Comment on above: PATIENT NOT FASTINGP ERFORMED BY: ANGELIA [facility] Zrbyfg7694 [address] [facility] [id number] BY: makr[address] [id number] TSH (16712)Ordered By: Vocalcome m Application Services Manager on 04-06-2015 TSH Qn 4.070 {uIU/mL} Normal 0.450-4.500 [facility] Internal Medicine Work Phone: Comment on above: PATIENT NOT FASTINGP ERFORMED BY: CB [facility] Dpqtfl3407 [address] [facility] [id number] BY: makr[address] [id number] VITAMIN B12 AND FOLATES (826 07)Ordered By: Clay Machine Operator on 04-06-2015 Cobalamin (Vitamin B12) [Mass/Vol] 590 pg/mL Normal 211-946 [facility] Work Phone: Comment on above: PATIENT NOT FASTINGP ERFORMED BY: [employer]6370 [facility] [id number] BY: [facility] [id number] Folate [Mass/Vol] 18.7 ng/mL Normal Compreh ensive Internal Medicine Work Phone: Comment on above: A serum folate christine ntration of less than 3.1 ng/mL isconsidered to represent clinical deficiency. PATIENT NOT FASTINGP ERFORMED BY: [employer]6370 [facility] [id number] BY: [facility] [id number] Vital Signs Date Time Vital Sign Value Performing Clinician Facility 10-17-2023 18:14-0400 Body height 157.5 cm Bhavesh Gomes METHODS ANALYST DATA PROCESSING-CASING TESTER Work Phone: [phone] [place] [address] 10-17-2023 18:14-0400 Body mass index (BMI) [Ratio] 32.37 kg/m2 Bhavesh Gomes METHODS ANALYST DATA PROCESSING-CASING TESTER Work Phone: [phone] [address] 10-17-2023 18:14-0400 Body temperature 98.49 [degF] Bhavesh Gomes METHODS ANALYST DATA PROCESSING-CASING TESTER Work Phone: [facility] 10-17-2023 18:14-0400 Body weight 80.29 kg Bhavesh Gomes METHODS ANALYST DATA PROCESSING-CASING TESTER Work Phone: [facility] 10-17-2023 18:14-0400 Diastolic blood pressure 74 mm[Hg] Bhavesh Gomes METHODS ANALYST DATA PROCESSING-CASING TESTER Work Phone: [facility] 10-17-2023 18:14-0400 Heart rate 92 /min Bhavesh Gomes METHODS ANALYST DATA PROCESSING-CASING TESTER Work Phone: [facility] 10-17-2023 18:14-0400 Respiratory rate 20 /min Bhavesh Gomes METHODS ANALYST DATA PROCESSING-CASING TESTER Work Phone: [facility] 10-17-2023 18:14-0400 SaO2% (BldA) [Mass fraction] 94 % Bhavesh Pradeeppete METHODS ANALYST DATA PROCESSING-CASING TESTER Work Phone: [facility] 10-17-2023 18:14-0400 Systolic blood pressure 113 mm[Hg] Bhavesh Riderdarwin METHODS ANALYST DATA PROCESSING-CASING TESTER Work Phone: [facility] 10-11-2016 09:09-0400 BMI (Body Mass Index) 36.08 kg/m2 Vandana Alfred RN [facility] Work Phone: 10-11-2016 09:09-0400 Body weight 89.47 kg Vandana Alfred RN [facility] Work Phone: 10-11-2016 09:09-0400 BP Diastolic 80 mm[Hg] Vandana Alfred RN [facility] Work Phone: Comment on above: Patient Position: Sitting; Cuff Location : Left Arm; Cuff Size: Large 10-11-2016 09:09-0400 BP Systolic 122 mm[Hg] Vandana Alfred RN [facility] Work Phone: Comment on above: Patient Position: Sitting; Cuff Location : Left Arm; Cuff Size: Large 10-11-2016 09:09-0400 BSA (Body Surface Area) 1.9 m2 Vandana Alfred RN [facility] Work Phone: 10-11-2016 09:09-0400 Height 157.48 cm Vandana Alfred RN [facility] Work Phone: 10-11-2016 09:09-0400 Pulse (Heart Rate) 88 /min Vandana Alfred RN Comprehens aubrey Internal Medicine Work Phone: Comment on above: Pattern: Regular 10-11-2016 09:09-0400 Pulse Oximetry 97 % Alina Rashad [facility] Work Phone: Comment on above: Room air 10-11-2016 09:09-0400 Respiratory Rate 18 /min Vandana Alfred RN Comprehensiv e [facility] Medicine Work Phone: Comment on above: Pattern: Unlabored 10-11-2016 09:09-0400 SaO2% (BldA) [Mass fraction] 97 % Vandana Alfred RN [facility]; [facility] Work Phone: Comment on above: Room air 02-08-2016 13:14-0400 BMI (Body Mass Index) 35.89 kg/m2 Vandana Alfred RN [facility] Work Phone: 02-08-2016 13:14-0400 Body weight 89.02 kg Vandana Alfred RN [facility] Work Phone: 02-08-2016 13:14-0400 BP Diastolic 90 mm[Hg] Vandana Alfred RN [facility] Work Phone: Comment on above: Patient Position: Sitting; Cuff Location : Left Arm; Cuff Size: Large 02-08-2016 13:14-0400 BP Systolic 138 mm[Hg] Vandana Alfred RN [facility] Work Phone: Comment on above: Patient Position: Sitting; Cuff Location : Left Arm; Cuff Size: Large 02-08-2016 13:14-0400 BSA (Body Surface Area) 1.9 m2 Vandana Alfred RN [facility] Work Phone: 02-08-2016 13:14-0400 Height 157.48 cm Vandana Alfred RN [facility] Work Phone: 02-08-2016 13:14-0400 Pulse (Heart Rate) 87 /min Vandana Alfred RN Comprehens aubrey Internal [facility] Work Phone: Comment on above: Pattern: Regular 02-08-2016 13:14-0400 Pulse Oximetry 98 % Alina Rashad [facility] Work Phone: Comment on above: Room air 02-08-2016 13:14-0400 Respiratory Rate 18 /min Vandana Alfred RN Comprehens[facility] Medicine Work Phone: Comment on above: Pattern: Unlabored 02-08-2016 13:14-0400 SaO2% (BldA) [Mass fraction] 98 % Vandana Alfred RN [facility]; [facility] Work Phone: Comment on above: Room air 11-26-2015 07:13-0400 BMI (Body Mass Index) 35.48 kg/m2 Alisa Lino CMA [facility] Work Phone: 11-26-2015 07:13-0400 Body Temperature 97.9 [degF] Alisa Lino [facility] Work Phone: Comment on above: Method: Oral 11-26-2015 07:13-0400 Body weight 88 kg Alisa Lino [facility] Work Phone: 11-26-2015 07:13-0400 BP Diastolic 70 mm[Hg] Alisa Lino [facility] Work Phone: Comment on above: Patient Position: Sitting; Cuff Location : Left Arm; Cuff Size: Standard 11-26-2015 07:13-0400 BP Systolic 120 mm[Hg] Alisa Lino [facility] Work Phone: Comment on above: Patient Position: Sitting; Cuff Location : Left Arm; Cuff Size: Standard 11-26-2015 07:13-0400 BSA (Body Surface Area) 1.89 m2 Alisa Lino [facility] Work Phone: 11-26-2015 07:13-0400 Height 157.48 cm Alisa Lino [facility] Work Phone: 11-26-2015 07:13-0400 Pulse (Heart Rate) 82 /min Alisa Lino [facility] Work Phone: Comment on above: Pattern: Regular 11-26-2015 07:13-0400 Pulse Oximetry 95 % Alina Solorzano [facility] Internal Medicine Work Phone: Comment on above: Room air 11-26-2015 07:13-0400 Respiratory Rate 16 /min Alisa Lino [facility] Work Phone: Comment on above: Pattern: Unlabored 11-26-2015 07:13-0400 SaO2% (BldA) [Mass fraction] 95 % Alisa Lino [facility]; [facility] Work Phone: Comment on above: Room air 07-27-2015 13:49-0400 BMI (Body Mass Index) 35.48 kg/m2 Alisa Lino [facility] Work Phone: Comment on above: 130/70 recheck 07-27-2015 13:49-0400 Body weight 88 kg Alisa Lino [facility] Work Phone: Comment on above: 130/70 recheck 07-27-2015 13:49-0400 BP Diastolic 82 mm[Hg] Alisa Lino [facility] Work Phone: Comment on above: Patient Position: Sitting; Cuff Location : Left Arm; Cuff Size: Large 130/70 recheck 07-27-2015 13:49-0400 BP Systolic 138 mm[Hg] Alisa Lino [facility] Work Phone: Comment on above: Patient Position: Sitting; Cuff Location : Left Arm; Cuff Size: Large 130/70 recheck 07-27-2015 13:49-0400 BSA (Body Surface Area) 1.89 m2 Alisa Lino [facility] Work Phone: Comment on above: 130/70 recheck 07-27-2015 13:49-0400 Height 157.48 cm Alisa Lino [facility] Work Phone: Comment on above: 130/70 recheck 07-27-2015 13:49-0400 Pulse (Heart Rate) 87 /min Alisa Lino [facility] Work Phone: Comment on above: Pattern: Regular 130/70 recheck 07-27-2015 13:49-0400 Pulse Oximetry 97 % Alina Solorzano [facility] Work Phone: Comment on above: Room air 130/70 recheck 07-27-2015 13:49-0400 Respiratory Rate 18 /min Alisa Lino [facility] Work Phone: Comment on above: Pattern: Unlabored 130/70 recheck 07-27-2015 13:49-0400 SaO2% (BldA) [Mass fraction] 97 % Alisa Lino [facility]; [facility] Work Phone: Comment on above: Room air 130/70 recheck 07-10-2015 08:45-0400 BMI (Body Mass Index) 35.32 kg/m2 Vandana Alfred RN [facility] Work Phone: 07-10-2015 08:45-0400 Body weight 87.6 kg Vandana Alfred RN [facility] Work Phone: 07-10-2015 08:45-0400 BP Diastolic 82 mm[Hg] Vandana Alfred RN [facility] Work Phone: Comment on above: Patient Position: Sitting; Cuff Location : Left Arm; Cuff Size: Large 07-10-2015 08:45-0400 BP Systolic 124 mm[Hg] Vandana Alfred RN [facility] Work Phone: Comment on above: Patient Position: Sitting; Cuff Location : Left Arm; Cuff Size: Large 07-10-2015 08:45-0400 BSA (Body Surface Area) 1.88 m2 Vandana Alfred RN [facility] Work Phone: 07-10-2015 08:45-0400 Height 157.48 cm Vandana Alfred RN [facility] Work Phone: 07-10-2015 08:45-0400 Pulse (Heart Rate) 76 /min Vandana Alfred RN Comprehens a[facility] Work Phone: Comment on above: Pattern: Regular 07-10-2015 08:45-0400 Pulse Oximetry 97 % Alina Solorzano [facility] Work Phone: Comment on above: Room air 07-10-2015 08:45-0400 Respiratory Rate 18 /min Vandana Alfred RN Com[facility] Work Phone: Comment on above: Pattern: Unlabored 07-10-2015 08:45-0400 SaO2% (BldA) [Mass fraction] 97 % Vandana Alfred RN [facility]; [facility] Work Phone: Comment on above: Room air 06-29-2015 14:29-0500 BMI (Body Mass Index) 35.32 kg/m2 Chana Zeng [facility] Work Phone: 06-29-2015 14:29-0500 Body weight 87.6 kg Chana Zeng [facility] Work Phone: 06-29-2015 14:29-0500 BP Diastolic 80 mm[Hg] Chana Zeng [facility] Internal Medicine Work Phone: Comment on above: Patient Position: Sitting; Cuff Location : Left Arm; Cuff Size: Standard 06-29-2015 14:29-0500 BP Systolic 122 mm[Hg] Chana Zeng [facility] Work Phone: Comment on above: Patient Position: Sitting; Cuff Location : Left Arm; Cuff Size: Standard 06-29-2015 14:29-0500 BSA (Body Surface Area) 1.88 m2 Chana Zeng [facility] Work Phone: 06-29-2015 14:29-0500 Height 157.48 cm [facility] Work Phone: 06-29-2015 14:29-0500 Pulse (Heart Rate) 84 /min Chana Zeng [facility] Work Phone: Comment on above: Pattern: Regular 06-29-2015 14:29-0500 Pulse Oximetry 97 % Alina Solorzano [facility] Work Phone: Comment on above: Room air 06-29-2015 14:29-0500 Respiratory Rate 97 /min Chana Zeng [facility] Work Phone: Comment on above: Pattern: Unlabored 06-29-2015 14:29-0500 SaO2% (BldA) [Mass fraction] 97 % [facility]; [facility] Work Phone: Comment on above: Room air 05-25-2015 14:28-0500 BMI (Body Mass Index) 35.69 kg/m2 Vandana Alfred RN [facility] Work Phone: 05-25-2015 14:28-0500 Body weight 88.51 kg Vandana Alfred RN [facility] Work Phone: 05-25-2015 14:28-0500 BP Diastolic 78 mm[Hg] Vandana Alfred RN [facility] Work Phone: Comment on above: Patient Position: Sitting; Cuff Location : Left Arm; Cuff Size: Large 05-25-2015 14:28-0500 BP Systolic 118 mm[Hg] Vandana Alfred RN [facility] Work Phone: Comment on above: Patient Position: Sitting; Cuff Location : Left Arm; Cuff Size: Large 05-25-2015 14:28-0500 BSA (Body Surface Area) 1.89 m2 Vandana Alfred RN [facility] Work Phone: 05-25-2015 14:28-0500 Height 157.48 cm Vandana Alfred RN [facility] Work Phone: 05-25-2015 14:28-0500 Pulse (Heart Rate) 83 /min Vandana Alfred RN Comprehens [facility] Work Phone: Comment on above: Pattern: Regular 05-25-2015 14:28-0500 Pulse Oximetry 93 % Alina Solorzano [facility] Work Phone: Comment on above: Room air 05-25-2015 14:28-0500 Respiratory Rate 18 /min Vandana Alfred RN Comprehens[facility] Work Phone: Comment on above: Pattern: Unlabored 05-25-2015 14:28-0500 SaO2% (BldA) [Mass fraction] 93 % Vandana Alfred RN [facility]; [facility] Work Phone: Comment on above: Room air 04-13-2015 15:23-0500 BMI (Body Mass Index) 35.37 kg/m2 Vandana Alfred RN [facility] Work Phone: 04-13-2015 15:23-0500 Body Temperature 97.6 [degF] Vandana Alfred RN Comprehens[facility] Work Phone: Comment on above: Method: Oral 04-13-2015 15:23-0500 Body weight 87.71 kg Vandana Alfred RN [facility] Work Phone: 04-13-2015 15:23-0500 BP Diastolic 78 mm[Hg] Vandana Alfred RN [facility] Work Phone: Comment on above: Patient Position: Sitting; Cuff Location : Left Arm; Cuff Size: Large 04-13-2015 15:23-0500 BP Systolic 142 mm[Hg] Vandana Alfred RN [facility] Work Phone: Comment on above: Patient Position: Sitting; Cuff Location : Left Arm; Cuff Size: Large 04-13-2015 15:23-0500 BSA (Body Surface Area) 1.88 m2 Vandana Alfred RN [facility] Work Phone: 04-13-2015 15:23-0500 Height 157.48 cm Vandana Alfred RN [facility] Work Phone: 04-13-2015 15:23-0500 Pulse (Heart Rate) 85 /min Vandana Alfred RN Comprehens [facility] Work Phone: Comment on above: Pattern: Regular 04-13-2015 15:23-0500 Pulse Oximetry 96 % Alina Solorzano [facility] Work Phone: Comment on above: Room air 04-13-2015 15:23-0500 Respiratory Rate 18 /min Vandana Alfred RN Comprehens[facility] e [facility] Medicine Work Phone: Comment on above: Pattern: Unlabored 04-13-2015 15:23-0500 SaO2% (BldA) [Mass fraction] 96 % Vandana Alfred RN [facility]; [facility] Work Phone: Comment on above: Room air 04-06-2015 13:36-0500 BMI (Body Mass Index) 35.19 kg/m2 Vandana Alfred RN [facility] Work Phone: 04-06-2015 13:36-0500 Body weight 87.26 kg Vandana Alfred RN [facility] Work Phone: 04-06-2015 13:36-0500 BP Diastolic 64 mm[Hg] Vandana Alfred RN [facility] Work Phone: Comment on above: Patient Position: Sitting; Cuff Location : Left Arm; Cuff Size: Large 04-06-2015 13:36-0500 BP Systolic 118 mm[Hg] Vandana Alfred RN [facility] Work Phone: Comment on above: Patient Position: Sitting; Cuff Location : Left Arm; Cuff Size: Large 04-06-2015 13:36-0500 BSA (Body Surface Area) 1.88 m2 Vandana Alfred RN [facility] Work Phone: 04-06-2015 13:36-0500 Height 157.48 cm Vandana Alfred RN [facility] Work Phone: 04-06-2015 13:36-0500 Pulse (Heart Rate) 68 /min Vandana Alfred RN Comprehens [facility] Work Phone: Comment on above: Pattern: Regular 04-06-2015 13:36-0500 Pulse Oximetry 98 % Alina Solorzano [facility] Work Phone: Comment on above: Room air 04-06-2015 13:36-0500 Respiratory Rate 18 /min Vanadna Alfred RN Com[facility] Work Phone: Comment on above: Pattern: Unlabored 04-06-2015 13:36-0500 SaO2% (BldA) [Mass fraction] 98 % Vandana Alfred RN [facility]; [facility] Work Phone: Comment on above: Room air Encounters Encounter Date Encounter Type Care Provider Facility Start: 12-09-2024 ambulatory Sulaiman Love Facility: [facility] Start: 12-06-2024 Encounter for other preprocedural examination Sulaiman Love [facility] Start: 11-14-2024 ambulatory Darinel Escamilla Facility:[facility] Start: 10-07-2024 End: 10-07-2024 ambulatory Darinel Escamilla MD Work Phone: [facility] Work Phone: Start: 10-07-2024 End: 10-07-[address] Sulaiman Love MD -Cat Scan [facility] Work Phone: Start: 10-07-2024 End: 10-07-2024 ambulatory Darinel Escamilla Facility:[facility] Start: 09-06-2024 End: 09-06-2024 ambulatory [facility] Start: 09-02-2024 End: 09-02-2024 ambulatory [facility] Start: 08-30-2024 End: 08-30-2024 ambulatory [facility] Start: 08-26-2024 End: 08-26-2024 ambulatory [facility] Start: 08-23-2024 End: 08-23-2024 ambulatory [facility] Start: 08-21-2024 End: 08-21-2024 ambulatory [facility] Start: 08-14-2024 End: 08-14-2024 ambulatory [facility] Start: 08-12-2024 End: 08-12-2024 ambulatory [facility] Start: 07-24-2024 End: 07-24-2024 ambulatory Darinel Escamilla MD Work Phone: [facility] Work Phone: Start: 07-24-2024 End: 07-24-2024 Patient encounter procedure Chet Damon NP-C -Outpatient Bone Densitometry Work Phone: Start: 07-24-2024 End: 07-24-2024 ambulatory Darinel Escamilla Facility:[facility] Start: 07-19-2024 End: 07-19-2024 ambulatory Darinel Escamilla MD Work Phone: [facility] Work Phone: Start: 07-19-2024 End: 07-19-[address] [facility] Start: 07-19-2024 End: 07-19-2024 ambulatory Darinel Escamilla Facility:[facility] Start: 07-09-2024 End: 07-09-2024 ambulatory Darinel Escamilla MD Work Phone: [facility] Work Phone: Start: 07-09-2024 End: 07-09-2024 [facility] Start: 07-09-2024 End: 07-09-2024 ambulatory Darinel Escamilla Facility:[facility] Start: 01-16-2024 End: 01-16-2024 ambulatory [facility] Facility:[facility] Start: 12-21-2023 ambulatory [facility] Facility:[facility] Start: 12-21-2023 End: 12-21-2023 ambulatory [facility] Facility:[facility] Start: 10-17-2023 End: 10-17-2023 Patient encounter procedure Bhavesh Ruelas Pradeeppete METHODS ANALYST DATA PROCESSING-CASING TESTER Work Phone: [facility] Comment on above: Acute bronchitis, un specified organism (Primary Dx) Start: 10-17-2023 End: 10-17-2023 ambulatory BHAVESH Suraj [facility] Start: 11-08-2022 End: 11-08-2022 ambulatory [facility] Work Phone: Start: 11-08-2022 End: 11-08-2022 Patient encounter procedure [facility] Start: 10-26-2022 End: 10-26-2022 ambulatory [facility] Work Phone: Start: 10-26-2022 End: 10-26-2022 Patient encounter procedure [facility] Start: 10-18-2016 End: 10-18-2016 Phone Encounter Alina Beaver Direct Support Worker al Medicine Start: 10-11-2016 End: 10-11-2016 Office outpatient visit 25 minutes Alina Solorzano [facility] Start: 02-10-2016 End: 02-10-2016 Phone Encounter Alina Beaver Direct Support Worker al Medicine Start: 02-08-2016 End: 02-08-2016 Office outpatient visit 25 minutes Alina Beaver [facility] Start: 11-26-2015 End: 11-26-2015 Office outpatient visit 25 minutes Alina Solorzano [facility] Start: 07-27-2015 End: 07-27-2015 Office outpatient visit 25 minutes Alina Solorzano [facility] Start: 07-10-2015 End: 07-10-2015 Office outpatient visit 10 minutes Alina Solorzano [facility] Start: 06-29-2015 End: 06-29-2015 Office outpatient visit 25 minutes Alina Rashad [facility] Start: 05-25-2015 End: 05-25-2015 Office outpatient visit 15 minutes Alina [facility] Start: 04-13-2015 End: 04-13-2015 Office outpatient visit 25 minutes Alina [facility] Start: 04-06-2015 End: 04-06-2015 Office outpatient visit 15 minutes Alina [facility] Procedures Date Procedure Procedure Detail Performing Clinician Start: 10-07-2024 MRI of lower extremity Darinel Escamilla MD Work Phone: Start: 07-24-2024 Dual energy X-ray absorptiometry Darinel Escamilla MD Work Phone: Start: 07-24-2024 Screening mammography Rome Escamilla MD Work Phone: Start: 07-19-2024 X-ray of knee, four or more views Darinel Escamilla MD Work Phone: Start: 10-18-2023 POCT SARS-COV-2/FLU/ RSV PCR SYMPTOMATIC Bhavesh Suraj Jyoti METHODS ANALYST DATA PROCESSING-CASING TESTER Work Phone: Start: 02-23-2021 End: 02-23-2021 Virtual Office Visit Procedure Note: See Note; NOTES: [facility] [place] [address] OFFICE VISIT Date of Service: 02/23/21 MR#: [id number] Acct: [id number] Patient: MEG BORDEN Rep #: [id number] : 1950 Provider: EUGENE dupree Age/Sex: 70/F Location: [facility] [place] Status: Signed Intake Intake Visit Reasons: COVID-19 Allergies Sulfa (Sulfonamide Antibiotics) Allergy (Verified 07/11/17 15:22) Hives codeine Adverse Reaction (Verified 07/11/17 15:22) Other [facility] Medical History (Updated 02/23/21 @ 15:16 by Clementina Montalvo NP, POT LINING SUPERVISOR-C) Asthma Bruising, spontaneous Hay fever History of breast cancer Incontinence Knee pain Shortness of breath Social History (Updated 07/11/17 @ 16:43 by Joey MATIAS, PA) Smoking Status: Current every day smoker alcohol intake: never HPI HPI Details: Patient was informed that this visit will be billed to patient. This visit was conducted during COVID-19 pandemic. MEG BORDEN, is a 70 F who presents to the office today for Statement read to the patient: This telehealth visit is being offered during our stay at home measures in response to the pandemic. It is subject to an office visit charge. The patient consents to continue. Symptom onset occurred: 02/19/21 Positive COVID-19 test occurred: 02/20/21 vaccine: Moderna June 2020 oxygen? NO The FDA has authorized the emergency use of monoclonal antibody treatment (bamlanivimab/etesevimab or casirivimab/imdevimab) for mild to moderate COVID-19 in adults and pediatric patients with positive results of direct SARS???Cov???2 viral testing ages 12 and older, at least 40 kg, who were not at high risk for progressing to severe COVID-19 and or hospitalization. The significant known and potential risks (allergic reactions or side effects from injection including brief pain, bleeding, bruising of the skin, soreness, swelling, possible infection at the infusion site) and benefits (decrease chance of progression to severe COVID-19) of a monoclonal antibody infusion, and the extent to which such potential risks and benefits are unknown. Patients treated with monoclonal antibody infusion should continue to self-isolate and use infection control measures (such as wear mask, isolate, social distance, avoid sharing personal items, clean and disinfect high touch surfaces, and frequent handwashing) according to the CDC guidelines. The fact sheet for patients, parents and caregivers will be provided prior to the administration of the medication. No drugs are approved by the FDA at this time to treat outpatients with mild or moderate symptoms of COVID-19. The following information was communicated to the patient or caregiver: Monoclonal antibody infusion is not an FDA approved drug. The FDA has authorized the emergency use of monoclonal antibody therapy. The patient had the option to refuse or accept treatment with monoclonal antibody therapy. The patient was informed that the number of people treated with monoclonal antibody therapy at this time is small. The potential benefits and the potential risks of monoclonal antibody therapy are not fully known. Potential benefits of monoclonal antibody include a reduced risk of progressing to severe COVID-19 infection. Potential risks or side effects of monoclonal antibody therapy include allergic reactions, side effects from injection including brief pain, bleeding, bruising of the skin, soreness, swelling, possible infection at the infusion site. The patient stated understanding of this information communicated and wished to proceed with monoclonal antibody infusion therapy. Current symptoms include: Sore throat, fever, cough, prod, body aches, SOB Qualifier: AGE ROS Const Constitutional: Positive for body ache and fever(s) ENT ENT: Positive for sore throat Resp Respiratory: Positive for cough and shortness of breath Exam Const General: cooperative and no acute distress Resp Effort Inspection: normal respiratory effort and able to speak in complete sentences Neuro General: patient alert, patient awake and patient oriented x3 Cognition: normal cognition Speech: speech normal Psych Mental Status: mental status grossly normal Mood: congruent mood Attitude: cooperative Thought Process: normal Thought Content: normal Judgment: judgment good Details: Details:: Exam was limited due to phone visit with no video. Quality Reporting Tobacco Screening ([facility] 138) Smoking Status: Current every day smoker Coding Level of Care Code New Pt Level 1 Telephone Patient Type New History Problem Focused Exam Problem Focused Medical Decision Making Straight Forward Diagnoses COVID-19 U07.1 Over 65 years old Time Spent (min) 10 Comment 01018 Assessment and Plan Assessment and Plan (1) COVID-19: Status: Acute Plan - Clementina Montalvo POT LINING SUPERVISOR, POT LINING SUPERVISOR-C: The patient remains appropriate for the monoclonal antibody infusion. The patient states understanding of this information communicated and wishes to proceed with monoclonal antibody infusion therapy. Patient agrees to receive either bamlanivimab/estesevimab or casirivimab/imdevimab upon availability. (2) Over 65 years old: Status: Acute 02/23/21 1516 <Electronically signed by Clementina Montalvo NP POT LINING SUPERVISOR-C> Date Clementina Montalvo NP POT LINING SUPERVISOR-C Cosigner Signature: Date (if applicable) CC: Dr. Alina Solorzano, DO Alina Solorzano DO Work Phone: Start: 07-11-2017 End: 07-11-2017 Urgent Care Visit Report Comments: See Note; NOTES: [facility] [address] [place] [address] [address] [place] [address] OFFICE VISIT Date of Service: 07/11/17 MR#: [id number] Acct: [id number] Name: MEG BORDEN Rep #: [id number] : 1950 Provider: Joey MATIAS Age/Sex: 66/F Location: [facility] [place] Status: Signed Intake Vital Signs07/11/17 Height 5 ft 07/11/17 Weight: 160 lb 07/11/17 Body Mass Index (BMI) 31.2 Intake Visit Reasons: CHEST CONGESTION Oyster Opener Required: No Is patient in pain?: No Allergies Sulfa (Sulfonamide Antibiotics) Allergy (Verified 07/11/17 15:22) Hives codeine Adverse Reaction (Verified 07/11/17 15:22) Other Medications albuterol sulfate 2 mg tablet 2 mg PO ONCE 07/11/17 [History Confirmed 07/11/17] mometasone-formoterol HFA 100 mcg-5 mcg/actuation aerosol inhaler 2 puff INHALATION BID 07/11/17 [History Confirmed 07/11/17] naproxen sodium 220 mg tablet 220 mg PO Q12H 07/11/17 [History Confirmed 07/11/17] PFSH Medical History Asthma (Acute) Bruising, spontaneous (Acute) Hay fever (Acute) History of breast cancer (Acute) Incontinence (Acute) Knee pain (Acute) Shortness of breath (Acute) Social History Smoking Status: Current every day smoker alcohol intake: never HPI HPI Details: MEG BORDEN, is a 66 F with a history of asthma, bronchitis and pneumonia who presents to the office today for cough and chest congestion for the past 6 days. Patient states she is concerned as her coughing and congestion have worsened over this time and states that her inhaler no longer is effective. She does report some shortness of breath particularly with activity and after a cough however denies any shortness of breath at rest. She has had no fever, chills, sweats. No difficulty ROS Const Constitutional: No fever(s), chills, headache(s), night sweats or abnormal sleep pattern ENT ENT: Positive for nasal discharge, nasal congestion and post nasal drip; no headache(s), ear pain, ear discharge or sore throat Resp Respiratory: Positive for cough Cough: Yes non-productive, wheezing and pain with cough; no hemoptysis or shortness of breath Cardio Cardiology: No chest pain at rest or shortness of breath Neuro Neurology: No headache(s), behavioral changes or confusion Psych Psychiatric: No abnormal sleep pattern, No behavioral changes, No confusion Aller/Imm Allergy/Immunologic: Positive for wheezing Exam Const General: cooperative, well developed HENMT Head: normal to inspection, atraumatic Ears: hearing grossly normal bilaterally Nose: nasal discharge clear Face and sinus: normal facial exam Mouth: oral mucosae normal Throat: abnormal tonsil bilaterally Resp Effort AND Inspection: normal respiratory effort, no audible wheezes Auscultation: Bilateral: Clear to Auscultation Cardio Palpation: normal PMI Rate: regular rate Rhythm: regular rhythm Neuro General: alert, CN's II-XI intact bilaterally Psych Appearance: grossly normal Mental Status: mental status grossly normal Assessment AND Plan Problems 1. Acute bronchitis, unspecified organism J20.9 Status Acute 2. Mild intermittent asthma with acute exacerbation J45.21 Status Acute Plan Chest x-ray read and interpreted by myself to find no acute abnormalities and later confirmed by radiology as a normal chest x-ray with no acute cardiopulmonary disease. Patient will be started on gentamicin Medrol Dosepak as prescribed today. Encouraged to get plenty of rest, drink lots of clear liquids, and use Tylenol or Ibuprofen (unless contraindicated) for fever and comfort. Patient also educated on other symptomatic management techniques. To be seen in 7-10 days if no improvement; sooner if worsening of symptoms. Patient advised of potential red flags and when appropriate report to the ED. Patient verbalized understanding of all the above. This note was generated with [employer] dictation software. It may contain incorrect words, spelling, and punctuation that were not noted in checking the note before signing. Orders Orders: Coding Level of Care Code Off vis,new,level 4 Diagnoses Acute bronchitis, unspecified organism J20.9 Bronchitis organism: unspecified organism Mild intermittent asthma with acute exacerbation J45.21 Asthma severity: mild Asthma persistence: intermittent 07/11/17 1643 <Electronically signed by Joey MATIAS> Date Joey MATIAS Cosigner Signature: Date (if applicable) CC: Alina Solorzano Start: 07-11-2017 End: 07-11-2017 Chest PA and Lateral Comments: See Note; NOTES: [facility] [place] Imaging Services [address] [place] [address] Chest PA and Lateral MR#: [id number] Acct: [id number] Name: MEG BRODEN Rep #: [id number] : 1950 F 66 From: Nehemiah Johnston DO PCP: Alina Solorzano DO Status: REG CLI Study: Chest PA and Lateral Date of Exam: 07/11/17 Exam# [id number] Ordering Dr: Joey John STUDY: X-RAY CHEST REASON FOR EXAM: Female, 66 years old. Cough and chest pain TECHNIQUE: PA and lateral views of the chest. COMPARISON: None. FINDINGS: Surgical clips in the right axilla. The lungs are clear and expanded. There is no demonstrated pleural abnormality. Normal size heart. Normal mediastinum and vinh. Normal visualized pulmonary arteries. Normal visualized aortic arch and descending thoracic aorta. Normal visualized thoracic spine. Normal visualized ribs, clavicles, and shoulders. There is no demonstrated abnormality of the visualized soft tissue structures of the upper abdomen. RAD/Chest PA and Lateral IMPRESSION: No acute cardiopulmonary disease Electronically Signed: Nehemiah Johnston DO at 16:13 EDT Tel , Service support , CC: Joey MATIAS; Alina Solorzano DO Employee Relations Assistant: Signed Alina Solorzano Start: 10-14-2016 End: 10-14-2016 Inital Evaluation (1) - PT Comments: See Note; NOTES: [facility] [address] [place] [address] Fax REHABILITATION SERVICES INITIAL EVALUATION MR#: [id number] Acct: [id number] Name: MEG BORDEN Rep #: [id number] : 1950 66 From: Kiana Lopez MPT Referring Dr.: Alina Solorzano DO Status: REG RCR Insurance: [facility] Patient's Visit Information MEG BORDEN is a 66 year old F referred to Physical Therapy by Alina Solorzano with a diagnosis of B knee pain and OA. Date of Evaluation: 10/12/16 Physical Therapist: Kiana Lopez - Visit Plan Frequency: 2x /Week Duration: 4 Weeks Plan: Get additional approval for Hip, knee and core strength with modalities for pain control as needed. - Subjective Subjective: Pt reports that she has had multiple knee injuries over the years. She got 2 injections in the knees yesterday and today is a really good day. Pt is also on a 6 day Prednisone pack. She had x-rays last January and showed OA in B knees. Pt is having trouble up and down on tile floors. She has a hard time getting up once sitting for awhile or when standing for awhile she has to regina shift to keep comfortable. Lifting 50# feed sacks bother her knees as well. Twisting of the knee increases her pain. Getting out of a vehicle is not good. Going down stairs is worse than up and goes one step at a time. Pt takes a lot of over the counter pain meds but this week that was not touching it and decided to see Rashad. - Pain R knee pain Pain Intensity (Out of 10): 3 Pain Intensity Range: 8 L knee pain Pain Intensity (Out of 10): 3 Pain Intensity Range: 8 - Objective Gait: Normal gait pattern. Increase pain with heel and toe walking on the medial R knee. Knee AROM: B 0-126 degrees. LE MMT: hip flex B 4/5, knee ext and knee flex B 4/5, hip abd B 4 -/5, hip ext B 4-/5. Girth measurements: tib tub R 42.1cm and 41.8cm, Infrapatella R 45.1cm and L 43.1cm, Suprapatella R 47.2cm and L 47.4cm - Goals Goal 1:: I HEP Goal Time Frame: 4-6 Weeks Goal 2:: Be able to go up and down stairs recip with 1 rail with 2/1o pain or less Goal Time Frame: 4-6 Weeks Goal 3:: Increase B hip abd and B hip ext strength to 4+/5 to help support knees Goal Time Frame: 4-6 Weeks - Rehabilitation Potential Rehabilitation Potential: Good - Anticipated Interventions Therapeutic Exercise to Include: Strength training, Balance training, Flexibilty training, Gait and locomotor training, Passive ROM, Active ROM, Dynamic Lumbar Stabilization For the Purpose of:: To decrease pain, To decrease swelling/inflammation, To increase ROM, To improve nutrient delivery to tissue, To improve muscle performance and motor function, To improve ability to perform ADL's, To increase tolerance to activity/condition/positi on, To improve performance and independence with ADL's, To improve health of tissue IF ES: Yes Cryotherapy (ice pack, ice massage): Yes Thermo therapy (hot pack): Yes Ultrasound (thermal/non thermal): Yes For the Purpose of:: To decrease pain, To decrease swelling/inflammation, To improve nutrient delivery to tissue Thank you for the opportunity to evaluate your patient. For Medicare and Medicare HMO plans, please review the plan of care and approve it. It will need to be FAXED BACK to us at [phone] for Medicare purposes. Please let me know if there are questions or concerns regarding this plan of care. Physician Signature: Date: _ <Electronically signed by Kiana Lopez MPT> 10/14/16 0945 CC: Alina Solorzano DO Signed For Medicare only, by signing this I certify the plan of care. ___ Physicians Signature Date Alina Solorzano Start: 02-08-2016 End: 02-09-2016 Knee 4 or More Views Comments: See Note; NOTES: [facility] [place] Imaging Services [address] [address] Verdana 4d Knee 4 or More Views MR#: [id number] Acct: [id number] Name: MEG BORDEN Rep #: [id number] : 1950 F 65 From: Rod Mckeon MD PCP: BARRINGTON ROY Status: REG CLI Study: Knee 4 or More Views Date of Exam: 02/08/16 Exam# [id number] Ordering Dr: Alina Solorzano DO STUDY: X-RAY - LEFT KNEE REASON FOR EXAM: Female, 65 years old. Knee pain. TECHNIQUE: 4 view(s) of the knee. COMPARISON: None. FINDINGS: Degenerative spurring along the distal medial condyle. Normal visualized proximal tibia and fibula. Normal proximal tibiofibular articulation. There is moderate degenerative arthrosis of the medial femorotibial compartment with moderate joint space narrowing. Normal lateral femorotibial compartment. There is mild degenerative arthrosis of the patellofemoral articulation. Small joint effusion. RAD/Knee 4 or More Views IMPRESSION: Degenerative arthrosis. Small joint effusion. Electronically Signed: Rod Mckeon MD at 14:51 EDT Tel [phone], Service support [phone], CC: BARRINGTON ROY; Alina Solorzano DO Employee Relations Assistant: Signed Alina Solorzano Work Phone: Start: 04-06-2015 End: 04-06-2015 Spmtry w/vc expiratory ivette w/wo mxml vol vntj _ Alina Solorzano Work Phone: Comment on above: restrivtive disease - Section - 1 Vandana pinedo Comment on above: 11/11/79 Section - 2 Vandana pinedo Comment on above: 08/04/81 Lumpectomy of breast Vandana pinedo Comment on above: 10/22 Operation on heart Vandana taylor Comment on above: cath 98 Screening colonoscopy Vnadana Alfred Comment on above: AGE 52 Screening mammography Vandana Alfred Comment on above: 2007 Tonsillectomy Vandana ruelas Comment on above: 5 yrs Plan of Treatment Date Care Activity Detail Author Start: 12-24-2023 Influenza vaccination Influenza Vaccine (Season Ended) [facility] Start: 12-23-2022 COVID-19 Vaccine ( season) COVID-19 Vaccine ( season) [facility] Start: 2017 Pneumococcal Vaccine: 65+ Years (1 of 1 - PCV) Pneumococcal Vaccine: 65+ Years (1 of 1 - PCV) [facility] Start: 10-11-2016 Provider Instructions for Treatment [facility] Work Phone: Start: 02-10-2016 Assay of thyroid stimulating hormone tsh TSH (44709) [facility]; [facility] Work Phone: Start: 02-10-2016 TSH Qn TSH (01803) [facility] Work Phone: Start: 02-10-2016 1 25 dihydroxy includes fractions if performed VITAMIN D, 1, 25-DIHYDROXY (32405) [facility] Work Phone: Start: 02-10-2016 Assay of free thyroxine T4, FREE (THYROXINE) (95849) [facility]; [facility] Work Phone: Start: 02-10-2016 Free T4 [Mass/Vol] T4, FREE (THYROXINE) (33552) [facility] Work Phone: Start: 02-10-2016 Assay of triiodothyronine t3 free T3, FREE (TRIDOTHYRONINE) (83113) [facility]; [facility] Work Phone: Start: 02-10-2016 Free T3 [Mass/Vol] T3, FREE (TRIDOTHYRONINE) (32380) [facility] Work Phone: Start: 02-08-2016 Patient Education Flu (Influenza) *: flu [facility] Work Phone: Start: 02-08-2016 Procedure Education Eprescribed prescriptions (G8553) [facility] Work Phone: Start: 02-08-2016 Provider Instructions for Treatment [facility] Work Phone: Start: 11-26-2015 Patient Education Cough Medicines, Nonprescription: cough [facility] Work Phone: Start: 11-26-2015 Procedure Education Eprescribed prescriptions (G8553) [facility] Work Phone: Start: 11-26-2015 Provider Instructions for Treatment [facility] Work Phone: Start: 07-27-2015 Lipid panel LIPID PANEL (20866) [facility] Work Phone: Start: 07-27-2015 Provider Instructions for Treatment [facility] Work Phone: Start: 07-10-2015 Provider Instructions for Treatment Shave Biopsy with Epi- 1/2 inch left arm- sent to pathology [facility] Work Phone: Start: 06-29-2015 Assay of thyroid stimulating hormone tsh TSH (09522) [facility]; [facility] Work Phone: Start: 06-29-2015 TSH Qn TSH (34936) [facility] Work Phone: Start: 06-29-2015 Assay of free thyroxine T4, FREE (THYROXINE) (04678) [facility]; [facility] Work Phone: Start: 06-29-2015 Free T4 [Mass/Vol] T4, FREE (THYROXINE) (46517) [facility] Work Phone: Start: 06-29-2015 Assay of triiodothyronine t3 free T3, FREE (TRIDOTHYRONINE) (53800) [facility]; [facility] Work Phone: Start: 06-29-2015 Free T3 [Mass/Vol] T3, FREE (TRIDOTHYRONINE) (57023) [facility] Work Phone: Start: 06-29-2015 Provider Instructions for Treatment [facility] Work Phone: Start: 05-25-2015 Provider Instructions for Treatment [facility] Work Phone: Start: 04-13-2015 Provider Instructions for Treatment [facility] Work Phone: Start: 04-06-2015 Assay of thyroid stimulating hormone tsh TSH (54873) [facility]; [facility] Work Phone: Start: 04-06-2015 TSH Qn TSH (53805) [facility] Work Phone: Start: 04-06-2015 Assay of folic acid rbc FOLIC ACID-RBC (85313) [facility]; [facility] Work Phone: Start: 04-06-2015 RBC (Bld) [#/Vol] FOLIC ACID-RBC (54758) [facility] Work Phone: Start: 04-06-2015 Assay of folic acid serum Folate (07391) [facility] Work Phone: Start: 04-06-2015 Cobalamin (Vitamin B12) [Mass/Vol] VITAMIN B-12 (CYANOCOBALAMIN) (79102) [facility] Work Phone: Start: 04-06-2015 Comprehensive metabolic panel METABOLIC PANEL, COMPREHENSIVE (00316) [facility] Work Phone: Start: 04-06-2015 Cyanocobalamin vitamin b-12 VITAMIN B-12 (CYANOCOBALAMIN) (26944) [facility]; [facility] Work Phone: Start: 04-06-2015 Provider Instructions for Treatment *fatigue education [facility] Work Phone: Start: 2012 RSV patients and/or patients aged 60+ years (1 - 1-dose 60+ series) RSV patients and/or patients aged 60+ years (1 - 1-dose 60+ series) [facility] Start: 2002 Zoster Vaccines (1 of 2) Zoster Vaccines (1 of 2) [facility] Start: 1974 DTaP/Tdap/Td Vaccines (1 - Tdap) DTaP/Tdap/Td Vaccines (1 - Tdap) [facility] Start: 1970 Hepatitis C screening Hepatitis C Screening [facility] Start: 1952 Lipid panel Lipid Panel [facility] Start: 1950 Medicare Annual Wellness Visit Medicare Annual Wellness Visit (AWV) [facility] Start: 1952 Screening for malignant neoplasm of colon [facility] Start: 1952 Screening for osteoporosis Bone Density Scan [facility] Work Phone: [facility] Work Phone: [facility] Work Phone: [facility] Work Phone: [facility] Work Phone: Immunizations Immunization Date Immunization Notes Care Provider Tamir gaines 01-31-2019 influenza virus vaccine, unspecified formulation Bhavesh Gomes METHODS ANALYST DATA PROCESSINGStephaniaCASING TESTER Work Phone: [facility] Work Phone: Payers Date Payer Category Payer Self-pay [id number] 2018 Medicare MEDICARE MEDICAR E PART A AND B [id number] 2018-Present [address] [place] [address] [id number] 2018 Unknown 2018 Medicare [id number] 2015 Unknown [id number] 1950 Unknown [id number] [id number] 3 1952 Unknown [id number] [id number]4 3 1950 Unknown [id number] 2.16.840.1.520030.3.579.2.124 3 1950 Unknown [id number] 2.16.840.1.738904.3.579.2.124 3 1950 Unknown [id number] 2.16.840.1.456597.3.579.2.124 3 1950 Unknown [id number] 2.16.840.1.906416.3.579.2.124 3 1950 Unknown [id number] 2.16.840.1.760156.3.579.2.124 3 1950 Unknown [id number] 2.16.840.1.604805.3.579.2.124 3 1950 Unknown [id number] 2.16.840.1.289535.3.579.2.124 3 Unknown [id number] 2.16.840.1.549090.3.579.2.462 Unknown [id number] 2.16.840.1.557698.3.579.2.462 Unknown [id number] 2.16.840.1.353300.3.579.2.462 Unknown [id number] 2.16.840.1.381914.3.579.2.462 Unknown [id number] 2.16.840.1.492446.3.579.2.462 Unknown [id number] 2.16.840.1.092906.3.579.2.462 Unknown [id number] 2.16.840.1.883649.3.579.2.462 Unknown [id number] 2.16.840.1.030734.3.579.2.462 Unknown [id number] 2.16.840.1.550115.3.579.2.462 Unknown [id number] [id number] Social History Date Type Detail Facility Alcohol Use Alcohol Use [facility] Work Phone: Comment on above: qd Exercise History: Exercise History: [facility] Work Phone: Living Situation: Living Situation: [facility] Work Phone: Comment on above: daughter Tobacco use: Tobacco use: [facility] Work Phone: Start: 02-23-2021 Tobacco smoking status NHIS Unknown if ever smoked [facility] Start: 1950 Sex Assigned At Female [facility] Exercise History: Exercise History: [facility] Work Phone: Living Situation: Living Situation: [facility]; [facility] Work Phone: Comment on above: daughter Tobacco use: Tobacco use: [facility] Work Phone: Start: 1950 Sex assigned at Not on file [facility] Work Phone: Gender identity Not on file [facility] Work Phone: Start: 10-07-2023 End: 10-17-2023 Exposure to SARS-CoV-2 (event) Not sure [facility] Start: 03-09-2023 Tobacco smoking status NHIS Smokes tobacco daily (finding) [facility] Start: 07-15-2024 End: 07-27-2024 Sex Female (finding) [facility] Clinical Note 11-29-2024 Note Date & Type Note Facility 11-29-2024 Note [facility] Medical Records Department [address] [place] [address] History Physical Exam 11/29/24 1250 MR#: [id number] Acct: [id number] Name: MEG BORDEN Rep #: [id number] : 1950 74 From: Damian MATIAS PA-C PCP: Dr. Darinel Escamilla MD Status:PRE [facility] Location: [facility] History and Physical History and Physical??? Patient Name: Meg Borden : 1950From:??? DAMIAN MCKEE PA-C??? DATE OF PRE-OPERATIVE EXAM: 11/29/2024 DATE OF SURGERY:??? 12/09/2024 SCHEDULED PROCEDURE:??? Robotic-assisted left total knee arthroplasty HISTORY OF PRESENT ILLNESS: Preoperative history and physical exam was performed on November 29, 2024.??? This is a 74-year-old female who has been having ongoing pain for the past several years.??? Pain is been progressively been getting worse.??? Her pain is constant, dull, aching, sharp, stabbing.??? Pain is increased with going up and down stairs, sitting, and walking.??? She cannot walk more than 100 feet without significant pain.??? Her pain can reach 7/10.??? She has been using Tylenol and [id number] ibuprofen as needed.??? Patient has difficulty with activities of daily living including getting dressed, housework, shopping, and leisure activities such as gardening and careing of her livestock.??? She has tripped/stumbled secondary to pain.??? She feels unsafe walking without support long distance.??? She has required the use of a cane.??? She has tried rest, ice, heat without relief.??? She has had previous corticosteroid injection with minimal to no relief.??? She has attempted physical therapy and home exercises without relief.??? She has tried oral medications without relief.??? She attempted bracing.??? After failing conservative measures and discussing all treatment options with Dr. Sulaiman Love, the patient does wish to proceed with a robotic assisted left total knee arthroplasty.??? She has obtain surgical clearance from primary care provider Dr. Darinel Escamilla.??? Patient denies past history of DVT or pulmonary embolism.??? No recent fevers, chills or recent infections.??? Denies chest pain or shortness of breath.??? She does report having anemia which has been stable and she uses chronic ferrous sulfate and folic acid. REVIEW OF SYSTEMS: Review Of Systems: Constitutional: Reports weight gain, but denies anorexia, anxiety, change in appetite, fever and weight change,hard of hearing, and vision problems. Cardiovasular: Denies chest pain, heart murmur, irregular heartbeat and peripheral vascular disease. Respiratory: Reports asthma, cough, shortness of breath and wheezing, but denies pneumonia, sleep apnea and tuberculosis. Gastrointestinal: Reports diarrhea, but denies constipation, heartburn, nausea, bloody stools and vomiting, and difficulty swallowing. Genitourinary: Reports irregular menstrual periods. Denies incontinence. Musculoskeletal: Reports gait disturbance, leg swelling, pain, trouble walking and weakness. Skin: Denies Raynaud's, history of shingles and tattoo. Neurological: Denies ambulatory dysfunction, dizziness, numbness/tingling and tremor. Psychiatric: Denies anxiety, depression, insomnia, mental illness and stress. Hematologic/Lymphatic: Reports bleeding/bruising tendency, but denies anemia and past transfusion. Reviewed and updated. PAST MEDICAL HISTORY: Advance Care Plan: No Advance Directives Effective Date: 07/31/2024 Past Medical History: Medical Problems: Arthritis, Asthma Cancer - breast 2001 High Blood Pressure, Covid- 19, Covid-19 Vaccine, anemia Accidents: Fracture - finger - little kid couple ribs crack below the knee Surgical Hx: Lumpectomy - right 2001 Knee Arthroscopy RT Section - x2 Tonsillectomy - as a child Anesthesia Complications: None Assistive Devices: Glasses Reviewed and updated. SOCIAL HISTORY: Social History: Marital: .Occupation: Retired.Work Status: Retired.Hand Dominance: Right-handed. Personal Habits:??? Cigarette Use: Never.Smokeless Tobacco: Never Used Smokeless Tobacco.E-Cigarette Use: Never used.Alcohol: Occasionally.Drug Use: Denies Use.Enjoy Exercising: Exercises 1-3 x/month. Reviewed and updated. VITALS: Ht: 61 Wt: 197lb Wt k.359 BMI: 37.2 BP: 126/80 Pulse: 80 Resp: 19 T: 97.5 T: 36.4C Pain Level: 10 O2SatR: 98 ALLERGIES: Codeine Sulfa??? MEDICATIONS: B12 5000 mcg daily, Folate 400 mcg daily, D3 2000 50 mcg (2000 Ut) three times per week, Vitamin D3 Ultra Strength 125 mcg (5000 Ut) daily, Tylenol 325 mg as needed, Ibuprofen 200 mg as needed, Iron 325 (65 Fe) MG three times per week, Folic Acid 800 mcg daily PRE-OP EXAM:??? General appearance:NORMAL? Other: Eyes: Conjunctivae and lids: NORMAL??? Pupils: ERR Ears, Nose, Mouth, and Throat: NORMAL??? Other: Inspection of lips, teeth and gums: NORMAL?Other: Neck: Examinatio (more content not included)... [facility] Radiology Diagnostic study note 10-08-2024 Note Date & Type Note Facility 10-08-2024 Radiology Diagnostic study note [facility] [place] Imaging Services [address], [place] [address] Extremity Lower without Contra MR#: [id number] Acct: [id number] Name: MEG BORDEN Rep #: [id number] : 1950 F 74 From: Kiran Clifton MD PCP: Dr. Darinel Escamilla MD Status: REG CL I Study:Extremity Lower without Contra Date of Exam: 10/07/24 Exam# [id number] Ordering Dr: Naeem Love MD PROCEDURE: EXTREMITY LOWER WITHOUT CONTRA 10/07/2024 REASON FOR EXAM: UNILATERAL PRIMARY OSTEOARTHRITIS, LT KNEE, WEN TECHNIQUE: EXTREMITY LOWER WITHOUT CONTRA Coronal and Sagittal reconstruction series were provided. CONTRAST: None One or more dose reduction techniques were used (e.g., Automated exposure control, adjustment of the mA and/or kV according to patient size, use of iterative reconstruction technique). RADIATION DOSE SUMMARY: DLP: 1292.91 mGycm COMPARISON: None FINDINGS: Bones: There is moderate to severe tricompartment osteoarthritis, most severe inthe medial compartment. There is joint space narrowing and marginal osteophytes. There is a 3 cm Levy's cyst. There is a small joint effusion. Soft tissues are unremarkable. There is no visible atherosclerosis. CT/Extremity Lower without Contra IMPRESSION: There is moderate to severe tricompartment osteoarthritis, most severe in the medial compartment. There is joint space narrowing and marginal osteophytes. There is a 3 cm Levy's cyst. There is a small joint effusion. Reading Location: [facility] CC: Dr. Darinel Escamilla MD; Dr. Sulaiman Love MD ~ Employee Relations Assistant: Signed [facility] Radiology Diagnostic study note 07-21-2024 Note Date & Type Note Facility 07-21-2024 Radiology Diagnostic study note [facility] [place] Imaging Services [address] [place] [place] [id number] Knee 4 or More Views MR#: [id number] Acct: [id number] Name: MEG BORDEN Rep #: [id number] : 1950 F 73 From: Verónica Redding DO PCP: Dr. Darinel Escamilla MD Status: REG CL I Study:Knee 4 or More Views Date of Exam: 07/19/24 Exam# [id number] Ordering Dr: Nancy Escamilla MD PROCEDURE: Left knee radiographs, four views 07/19/2024 REASON FOR EXAM: LEFT KNEE INJURY TECHNIQUE: Four views of the left knee were obtained. COMPARISON: None available FINDINGS: Four views of the left knee were obtained. Bones are osteopenic. No acute fracture or dislocation of the left knee. Moderate degenerative change of the lateral and patellofemoral compartments. Severe degenerative change of the medial compartment. Small suprapatellar effusion. RAD/Knee 4 or More Views IMPRESSION: Osteoarthritis. No acute bony abnormality of the left knee. Moderate/severe tricompartmental degenerative changes of the left knee, greatestinvolving the medial compartment. Small suprapatellar effusion. Reading Location: [facility] CC: Dr. Darinel Escamilla MD ~ Employee Relations Assistant: Signed [facility] History of Present illness Narrative 10-17-2023 Bhavesh Gomes, METHODS ANALYST DATA PROCESSING-CASING TESTER - 10/17/2023 6:10 PM EDT Note Date & Type Note Facility 10-17-2023 History of Present illness Narrative 73 y.o. female presents for evaluation of URI. Symptoms including fever, chills, productive cough with yellow sputum, congestion, body aches, malaise, and headache have been present for several days and refractory to OTC meds. Has a history of bronchitis and PNA. No nausea, vomiting, abdominal pain, CP, or SOB. No exacerbating factors. No known COVID 19/flu exposure. Daughter ill with pneumonia. Vitals: 10/17/23 1814 BP: 113/74 Pulse: 92 Resp: 20 Temp: 36.9 C (98.5 F) SpO2: 94% Allergies Allergen Reactions Codeine Other Hyper Sulfa (Sulfonamide Antibiotics) Hives Medication Documentation Review Audit Reviewed by Ariella Cruz MA (Salesperson Neckties) on 10/17/23 at 1813 Medication Order Taking? Sig Documenting Provider Last Dose Status albuterol sulfate (PROAIR HFA INHL) [id number] No Inhale. Historical Provider, Not Taking Active LOW-DOSE ASPIRIN ORAL [id number] Yes Take by mouth. Historical Provider, Taking Active No past medical history on file. No past surgical history on file. ROS See HPI Physical Exam Vitals and nursing note reviewed. Constitutional: General: She is not in acute distress. Appearance: Normal appearance. She is ill-appearing (mildly). She is not toxic-appearing or diaphoretic. HENT: Head: Normocephalic and atraumatic. Right Ear: Tympanic membrane and ear canal normal. Left Ear: Tympanic membrane and ear canal normal. Nose: Congestion present. Mouth/Throat: Mouth: Mucous membranes are moist. Pharynx: Oropharynx is clear. Comments: Hoarse voice Eyes: Extraocular Movements: Extraocular movements intact. Conjunctiva/sclera: Conjunctivae normal. Pupils: Pupils are equal, round, and reactive to light. Cardiovascular: Rate and Rhythm: Normal rate and regular rhythm. Pulmonary: Effort: Pulmonary effort is normal. Breath sounds: Examination of the right-upper field reveals wheezing. Examination of the right-middle field reveals wheezing. Examination of the right-lower field reveals wheezing. Wheezing present. No decreased breath sounds, rhonchi or rales. Comments: Moist cough Lymphadenopathy: Cervical: Cervical adenopathy present. Skin: General: Skin is warm and dry. Neurological: General: No focal deficit present. Mental Status: She is alert and oriented to person, place, and time. Psychiatric: Mood and Affect: Mood normal. Behavior: Behavior normal. Recent Results (from the past 1 hour(s)) POCT SARS-COV-2/FLU/RSV PCR SYMPTOMATIC manually resulted Collection Time: 10/18/23 8:57 AM Result Value Ref Range POC Coronavirus 2019, PCR Not Detected Not Detected POC Flu A Result Not Detected Not Detected POC Flu B Result Not Detected Not Detected POC RSV PCR Not Detected Not Detected Assessment/Plan/MDM Meg was seen today for uri. Diagnoses and all orders for this visit: Acute bronchitis, unspecified organism (Primary) - azithromycin (Zithromax Z-Thomas) 250 mg tablet; Take 2 tablets (500 mg) on Day 1, followed by 1 tablet (250 mg) once daily on Days 2 through 5. - methylPREDNISolone (Medrol Dospak) 4 mg tablets; Take as directed on package. - methylPREDNISolone sod succinate (SOLU-Medrol) injection 125 mg - albuterol 90 mcg/actuation inhaler; Inhale 2 puffs every 6 hours if needed for wheezing. - POCT SARS-COV-2/FLU/RSV PCR SYMPTOMATIC manually resulted Encouraged pt to continue otc cold remedies PRN, push PO fluids and rest. Patient's clinical presentation is otherwise unremarkable at this time. Patient is discharged with instructions to follow-up with primary care or seek emergency medical attention for worsening symptoms or any new concerns. I did personally review Meg's past medical history, surgical history, social history, as well as family history (when relevant). In this case, I also oversaw the her drug management by reviewing her medication list, allergy list, as well as the medications that I prescribed during the UC course and/or recommended as an out-patient (including possible OTC medications such as acetaminophen, NSAIDs , etc). After reviewing the items above, I did look at previous medical documentation, such as recent hospitalizations, office visits, and/or recent consultations with PCP/specialist. SDOH: Another factor that I considered in Meg's care was her Social Determinants of Health (SDOH). During this UC encounter, she did not have social determinants of health. Those SDOH influencing Meg's care are: none Bhavesh Gomes CNP [facility] [phone] documented in this encounter [facility] Work Phone: Evaluation note Note Date & Type Note Facility Evaluation note No assessment information availa [facility] Work Phone: Evaluation note Note Date & Type Note Facility Evaluation note Diagnosis Acute bronchitis, unspecified organism- Primary documented in this encounter [facility] Work Phone: Instructions Note Date & Type Note Facility Instructions Name How to access health information online Indication:BMI 36.0-36.9,adult Start: Instruction Type:Patient Education How to access health information online - Detail Indication:BMI 36.0-36.9,adult Start: Instruction Type:Patient Education Patient Instructions Indication:BMI 36.0-36.9,adult Start: Instruction Type:Provider Instructions for Treatment How to access health information online Indication:Need for prophylactic vaccination and inoculation against influenza (Renamed from Need for immunization against influenza) Start: 6 Instruction Type:Patient Education How to access health information online - Detail Indication:Need for prophylactic vaccination and inoculation against influenza (Renamed from Need for immunization against influenza) Start: 6 Instruction Type:Patient Education Patient Instructions Indication:Need for prophylactic vaccination and inoculation against influenza (Renamed from Need for immunization against influenza) Start: 6 Instruction Type:Provider Instructions for Treatment How to access health information online Indication:Cough Start:26-Nov-2015 Instruction Type:Patient Education How to access health information online - Detail Indication:Cough Start:26-Nov-2015 Instruction Type:Patient Education Patient Instructions Indication:Cough Start:26-Nov-2015 Instruction Type:Provider Instructions for Treatment How to access health information online Indication:Mild intermittent intrinsic asthma without complication Start:29-Jun-2015 Instruction Type:Patient Education Patient Instructions Indication:Mild intermittent intrinsic asthma without complication Start:29-Jun-2015 Instruction Type:Provider Instructions for Treatment Patient Instructions Indication:Vitamin D deficiency Start:25-May-2015 Instruction Type:Provider Instructions for Treatment Patient Instructions Indication:Hair loss Start: 5 Instruction Type:Provider Instructions for Treatment How to access health information online Indication:Need for prophylactic vaccination and inoculation against influenza (Renamed from Need for immunization against influenza) Start: 5 Instruction Type:Patient Education How to access health information online - Detail Indication:Need for prophylactic vaccination and inoculation against influenza (Renamed from Need for immunization against influenza) Start: 5 Instruction Type:Patient Education Patient Instructions Indication:Need for prophylactic vaccination and inoculation against influenza (Renamed from Need for immunization against influenza) Start: Instruction Type:Provider Instructions for Treatment [facility] Work Phone: Reason for referral (narrative) Note Date & Type Note Facility Reason for referral (narrative) No reason for referral information available [facility] Work Phone: Summary Purpose Family History No Family History Records FoundUnknown Family Member Name Dates Details Breast Cancer Comments:Mother. Status:Active Cancer Comments:Paternal Grandmothe r. Status:Active Heart Disease Comments:Mother. Paternal Gr andmother. Status:Active Ulcer Disease Comments:Father. Status:Active Unknown Family Member Name Dates Details Breast Cancer Comments:Mother. Status:Active Cancer Comments:Paternal Grandmothe r. Status:Active Heart Disease Comments:Mother. Paternal Gr andmother. Status:Active Ulcer Disease Comments:Father. Status:Active Advance Directives No Advanced Directives Records FoundNo Advanced Directives Records FoundNo Advanced Directives Records Found Instructions Name Dates Details How to access health informa tion online Indication:BMI 36.0-36.9,adult Start:11-Oct-2016 Instruction Type:Patient Education How to access health informa tion online - Detail Indication:BMI 36.0-36.9,adult Start:11-Oct-2016 Instruction Type:Patient Education Patient Instructions Indication:BMI 36.0-36.9,adult Start:11-Oct-2016 Instruction Type:Provider Instructions for Treatment How to access health informa tion online Indication:Need for prophylactic vaccination and inoculation against influenza (Renamed from Need for immunization against influenza) Start:08-Feb-2016 Instruction Type:Patient Education How to access health informa tion online - Detail Indication:Need for prophylactic vaccination and inoculation against influenza (Renamed from Need for immunization against influenza) Start:08-Feb-2016 Instruction Type:Patient Education Patient Instructions Indication:Need for prophylactic vaccination and inoculation against influenza (Renamed from Need for immunization against influenza) Start:08-Feb-2016 Instruction Type:Provider Instructions for Treatment How to access health informa tion online Indication:Cough Start:26-Nov-2015 Instruction Type:Patient Education How to access health informa tion online - Detail Indication:Cough Start:26-Nov-2015 Instruction Type:Patient Education Patient Instructions Indication:Cough Start:26-Nov-2015 Instruction Type:Provider Instructions for Treatment How to access health informa tion online Indication:Mild intermittent intrinsic asthma without complication Start:29-Jun-2015 Instruction Type:Patient Education Patient Instructions Indication:Mild intermittent intrinsic asthma without complication Start:29-Jun-2015 Instruction Type:Provider Instructions for Treatment Patient Instructions Indication:Vitamin D deficiency Start:25-May-2015 Instruction Type:Provider Instructions for Treatment Patient Instructions Indication:Hair loss Start:13-Apr-2015 Instruction Type:Provider Instructions for Treatment How to access health informa tion online Indication:Need for prophylactic vaccination and inoculation against influenza (Renamed from Need for immunization against influenza) Start:06-Apr-2015 Instruction Type:Patient Education How to access health informa tion online - Detail Indication:Need for prophylactic vaccination and inoculation against influenza (Renamed from Need for immunization against influenza) Start:06-Apr-2015 Instruction Type:Patient Education Patient Instructions Indication:Need for prophylactic vaccination and inoculation against influenza (Renamed from Need for immunization against influenza) Start:06-Apr-2015 Instruction Type:Provider Instructions for Treatment Chief Complaint and Reason for Visit Chief Complaint Admit Date Left knee injury July 19, 2024 11: 24am Chief Complaint Admit Date Left knee injury July 19, 2024 11: 24am SCREENING July 24, 2024 9:31 am Chief Complaint Admit Date Left knee injury July 19, 2024 11: 24am SCREENING July 24, 2024 9:31 am UNILATERAL PRIMARY OSTEOARTHRITIS, LT KN EE October 07, 2024 6:33pm Additional Source Comments INFORMATION SOURCE (unrecogn ized section and content) DATE CREATED AUTHOR 05/06/2020 [facility] DATE CREATED AUTHOR AUTHOR'S ORGANIZ ATION 09/07/2024 [facility] DATE CREATED AUTHOR AUTHOR'S ORGANIZ ATION 12/07/2024 [facility] Care Teams (unrecognized sec tion and content) Team Status: Active Member Role Status Dates Dr. Alina Solorzano , DO Family Provider Active Dr. Alina Solorzano , DO Primary Care Provider Active Team Status: Inactive Member Role Status Dates Dr. Alina Solorzano , DO Primary Care Provider Active Nicol Emanuel , DO Attending Provider Active Team Status: Active Member Role Status Dates Dr. Alina Solorzano , DO Family Provider Active Nicol Emanuel , DO Primary Care Provider Active Team Status: Inactive Member Role Status Dates Nicol Emanuel , DO Primary Care Provider, Attending Provider Active Continuous Improvement Coordinator Relationship Specialty Start Date End Date Darinel Escamilla MD [address] [place] [address] PCP - General Family Medicine 10/17/23 Team Status: Active Member Role Status Dates Darinel Escamilla MD Primary Care Provider Active Team Status: Inactive Member Role Status Dates Darinel Escamilla MD Primary Care Provider Active St art: July 09, 2024 End: July 09, 2024 Chet Damon POT LINING SUPERVISOR POT LINING SUPERVISOR-C Attending Provider Active Start: July 09, 2024 End: July 09, 2024 Team Status: Inactive Member Role Status Raquel Escamilla MD Primary Care Provider Active St art: July 19, 2024 End: July 19, 2024 Darinel Escamilla MD Attending Provider Active Start : July 19, 2024 End: July 19, 2024 Darinel Escamilla MD Referring Provider Active Start : July 19, 2024 End: July 19, 2024 Team Status: Inactive Member Role Status Dates Darinel Escamilla MD Primary Care Provider Active St art: July 24, 2024 End: July 24, 2024 Chet Damon POT LINING SUPERVISOR POT LINING SUPERVISOR-C Attending Provider Active Start: July 24, 2024 End: July 24, 2024 Chet Damon POT LINING SUPERVISOR POT LINING SUPERVISOR-C Referring Provider Active Start: July 24, 2024 End: July 24, 2024 Team Status: Inactive Member Role Status Dates Darinel Escamilla MD Primary Care Provider Active St art: October 07, 2024 End: October 07, 2024 Dr. Sulaiman Love MD Attending Provider Active Start: October 07, 2024 End: October 07, 2024 Dr. Sulaiman Love MD Referring Provider Active Start: October 07, 2024 End: October 07, 2024 Goals (unrecognized section and content) Goals may be documented in a n alternate sectionGoals may be documented in an alternate sectionGoals may be documented in an alternate sectionGoals may be documented in an alternate sectionGoals may be documented in an alternate sectionGoals may be documented in an alternate section Reason for Visit (unrecogniz ed section and content) Reason Comments URI Cough, SOB,fevers, h eadache X 3 days FOR RECORDS PERTAINING TO PATIENTS WHO ARE OR HAVE BEEN ENROLLED IN A CHEMICAL DEPENDENCY/SUBSTANCEABUSE PROGRAM, SOME INFORMATION MAY BE OMITTED. This clinical summary was aggregated from multiple sources. Caution should be exercised in using it in the provision of clinical care. This summary normalizes information from multiple sources, and as a consequence, information in this document may materially change the coding, format and clinical context of patient data. In addition, data may be omitted in some cases. CLINICAL DECISIONS SHOULD BE BASED ON THE PRIMARY CLINICAL RECORDS. [employer] provides no warranty or guarantee of the accuracy or completeness of information in this document.
[2024-12-09] MEDS: LR 1,000 ML - BOLUS PREOP 999 ML IV (08:07)
[2024-12-09] MEDS: Magnesium 1 GM over 15 mins IV (08:07)
[2024-12-09] MEDS: Lactated Ringers 1,000 ML 15 ML IV (08:08)
--- NOTE | 2024-12-09 08:53 | PCM.PRE.AN2 ---
ASA Classification* ASA Classification ASA Classification: 3 Assessment & Plan Anesthesia* Anesthesia Assessment Anesthesia Assessment: Discussed sedation and/or anesthesia options, risks, benefits, and alternatives with patient/parents/legal guardian/POA. Questions invited. The patient/parents/legal guardian/POA seems to understand and agrees to proceed with anesthesia plan. Reviewed the physical assessment, medical history, allergy history and patient home medications list prior to surgery/procedure/anesthetic and documented any changes. Performed airway and anesthesia risk assessments. Anesthesia Type Anesthesia Type: Spinal and Block History Source History Obtained from:: Patient and Chart Anesthesia Focused Assessment* Temperature: 97.3 F Pulse Rate: 81 Blood Pressure: 125/75 Respiratory Rate: 18 Pulse Ox: 96 Oxygen Delivery Method: Room Air Airway Assessment Mouth opens: >3 cm Mallampati Score: IV Teeth Condition: Caps/Crowns ([place] right upper molar. It is tight.), Chipped/Broken (Chip on tooth #8.) and Missing (Missing several molars. Rest are tight) Neck Range of motion (ROM): Limited ROM (Slight Decrease) Labs Anesthesia Preop lab: CBC WBC 8.1 K/mm3 (4.4-11.0) 11/14/24 07:11/14/24 RBC 4.56 M/mm3 (4.2-5.4) 11/14/24 07:11/14/24 Hgb 13.4 g/dL (12.0-15.0) 11/14/24 07:33 11/14/24 Hct 41.5 % (37-47) 11/14/24 07:11/14/24 Plt Count 332 K/mm3 (150-450) 11/14/24 07:33 11/14/24 CHEMISTRY Potassium 4.3 mmol/L (3.3-5.1) 11/14/24 07:11/14/24 Sodium 140 mmol/L (133-145) 11/14/24 07:11/14/24 Magnesium 2.3 mg/dL (1.5-2.2) H 11/14/24 07:11/14/24 BUN 16 mg/dL (4-19) 11/14/24 07:11/14/24 Creatinine 0.70 mg/dL (0.70-1.20) 11/14/24 07:33 11/14/24 Glucose 90 mg/dL (70-99) 11/14/24 07:33 11/14/24 TSH 1.96 uIU/mL (0.358-3.74) 11/01/23 15:02 11/01/23 COAG PT 12.5 SECONDS (11.7-14.9) 11/14/24 07:33 11/14/24 Pre-Assessment Diagnosis/Proposed Procedure Planned Operative Procedure(s): (L) ROBOTIC ASSISTED LEFT TOTAL KNEE ARTHROPLASTY, ERAS Anesthesia History 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 When Was Last Pacemaker Check QUESTION #4 FULL TEXT: You/Your Family Experience fever (hyperthermia) with Anesthesia Last Oral Intake Last Oral intake: Last Oral Intake NPO since 06:00 12/09/24 07:45 Meds taken in AM with sips of No 12/09/24 07:45 water? Meds patient instructed to take am of surgery Any additional information?: Yes NPO since: 06:00 (Patient has had her preop Ensure at 6 AM.) PONV PONV - junior sales representative: PONV - junior sales representative Female Yes 11/11/24 08:17 HX of Motion Sickness No 11/11/24 08:17 HX of N/V After Surgery No 11/11/24 08:17 Non-Smoker Yes 11/11/24 08:17 Duration of Surgery greater Yes 11/11/24 08:17 than 60 minutes Number of Risk Factors 3 11/11/24 08:17 PONV Score Moderate Risk 11/11/24 08:17 Height & Weight Height & Weight: Anesthesia: Height & Weight Height 5 ft 2 in 12/09/24 07:45 Weight: 92.7 kg 12/09/24 07:45 Body Mass Index (BMI) 37.3 12/09/24 07:45 Respiratory Assessment Respiratory Assessment - junior sales representative: Respiratory Tract Infection Hx - junior sales representative Hx Respiratory Tract Infection No 11/11/24 08:17 STOP Sleep Apnea STOP Sleep Apnea - junior sales representative: STOP Sleep Apnea - junior sales representative Hx Hypertension No 11/11/24 08:17 Hx Sleep Apnea No 11/11/24 08:17 CPAP BIPAP Do you snore loudly (louder No 11/11/24 08:17 than talking or can be heard Do you often feel tired/ No 11/11/24 08:17 fatigued/ sleepy during daytime? Has anyone observed you stop No 11/11/24 08:17 breathing during sleep? STOP Results Negative 11/11/24 08:17 QUESTION #5 FULL TEXT : Do you snore loudly (louder than talking or can be heard through closed doors)? 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 Specify any problems Hx of Preganancy in last 3 N/A 11/11/24 08:17 Months Nurse Filling Out Transfusion NBUCHER 11/11/24 08:17 & Questions: Date: 11/11/24 11/11/24 08:17 Time: 08:20 11/11/24 08:17 Patient unable to answer at this time (ie. confused, unrespo /Reproduction History /Reproductive History - junior sales representative: /Reproductive Hx- junior sales representative Hx Now No 11/11/24 08:17 Gestational Age (in weeks): EDC: Hx Hx Para Hx Section SAB No 11/11/24 08:17 Active Medications Active Medications: Current Medications Generic Name Dose Route Start Last Admin Trade Name Freq PRN Reason Stop Dose Admin Acetaminophen 1,000 mg 12/09/24 10:30 12/09/24 08:08 Acetaminophen 500 Mg Tablet PO 12/09/24 10:31 1,000 mg PREOP ONE Administration Acetaminophen 1,000 mg 12/09/24 07:15 Acetaminophen 500 Mg Tablet PO Q8H [facility] Aspirin 81 mg 12/09/24 10:00 Aspirin 81 Mg Tab.Chew PO BID [facility] Celecoxib 400 mg 12/09/24 10:30 12/09/24 08:08 Celecoxib 200 Mg Capsule PO 12/09/24 10:31 400 mg PREOP ONE Administration Sodium Chloride 77.9 ml/ 0 ml 12/09/24 10:30 Ropivacaine 200 mg/ OPERA.SITE 12/09/24 10:31 Epinephrine HCl 0.6 mg/ INTRAOP ONE Ketorolac Tromethamine 30 mg/ Morphine Sulfate 5 mg Dexamethasone Sodium Phosphate 10 mg 12/09/24 10:30 Dexamethasone 10 Mg/Ml Vial IV 12/09/24 10:31 INTRAOP ONE Enteral Nutritional Formula 237 ml 12/09/24 08:00 Ensure Surgery 237 Ml Liquid PO TIDCM [facility] Famotidine 20 mg 12/09/24 10:00 Famotidine 20 Mg Tablet PO DAILY [facility] Gabapentin 600 mg 12/09/24 10:30 12/09/24 08:08 Gabapentin 600 Mg Tablet PO 12/09/24 10:31 600 mg PREOP ONE Administration Lactated Ringer's 1,000 mls @ 999 mls/hr 12/09/24 10:30 12/09/24 08:07 IV 12/09/24 11:30 999 mls/hr .Q1H1M [facility] Administration Cefazolin Sodium 2 gm/ Sodium 110 mls @ 150 mls/hr 12/09/24 10:30 Chloride IV 12/09/24 11:13 INTRAOP ONE Tranexamic Acid 1,000 mg/ 110 mls @ 660 mls/hr 12/09/24 10:30 Sodium Chloride IV 12/09/24 10:39 INTRAOP ONE Tranexamic Acid 1,000 mg/ 110 mls @ 660 mls/hr 12/09/24 11:30 Sodium Chloride IV 12/09/24 11:39 INTRAOP ONE Lactated Ringer's 1,000 mls @ 999 mls/hr 12/09/24 11:30 IV 12/09/24 12:30 .Q1H1M JONATHAN Lactated Ringer's 1,000 mls @ 125 mls/hr 12/09/24 12:30 IV 12/09/24 20:29 .Q8H JONATHAN Magnesium Sulfate 1 gm/ 102 mls @ 408 mls/hr 12/09/24 10:30 12/09/24 08:07 Dextrose IV 12/09/24 10:44 408 mls/hr PREOP ONE Administration Cefazolin Sodium 1 gm in 50 mls @ 100 mls/hr 12/09/24 07:05 IV 12/09/24 15:34 Q8H JONATHAN Lactated Ringer's 1,000 mls @ 15 mls/hr 12/09/24 07:30 12/09/24 08:08 IV 15 mls/hr .Q48H JONATHAN Administration Insulin Human Lispro 1 - 6 unit 12/09/24 10:30 Insulin Lispro 100 Unit/Ml Insuln.Pen SC 12/09/24 16:30 Q4H PRN PRN BG>/= 180, SEE PROTOCOL Protocol Ketorolac Tromethamine 15 mg 12/09/24 07:02 Ketorolac 15 Mg/Ml Vial IV 12/10/24 07:03 Q6H PRN PRN Pain Score 1-10 Meloxicam 7.5 mg 12/11/24 10:00 Meloxicam 7.5 Mg Tablet PO BID [facility] Morphine Sulfate 2 - 4 mg 12/09/24 07:02 Morphine 2 Mg/Ml Syringe IV Q2H PRN PRN Pain Score 4-10 Ondansetron HCl 4 mg 12/09/24 07:02 Ondansetron 4 Mg/2 Ml Vial IV Q6H PRN PRN NAUSEA/VOMITING Oxycodone HCl 5 - 10 mg 12/09/24 07:02 Oxycodone 5 Mg Tablet PO Q4H PRN PRN Pain Score 4-10 Promethazine HCl 12.5 mg 12/09/24 07:02 Promethazine 25 Mg Tablet PO Q6H PRN PRN NAUSEA/VOMITING Promethazine HCl 12.5 mg 12/09/24 07:02 Promethazine 25 Mg/Ml Syringe IM Q6H PRN PRN NAUSEA/VOMITING Senna/Docusate Sodium 2 tablet 12/09/24 10:00 Senna/Docusate Sodium 1 Tablet PO BID [facility] Medical History Post-menopausal Wears glasses Cancer Walker as ambulation aid Arthritis Anemia High cholesterol Chronic cough Non-smoker History of edema History of stress test Pneumonia Incontinence Bruising, spontaneous Asthma Knee pain Hay fever Shortness of breath History of breast cancer Home Medications ?Medication ?Instructions ?Recorded ?Last Taken ?Type Folate 800 mcg PO DAILY 11/11/24 Unknown History cholecalciferol (vitamin D3) 50 75 mcg PO DAILY 11/11/24 Unknown History mcg (2,000 unit) tablet (Vitamin D3) cyanocobalamin (vitamin B-12) 1,000 mcg PO QODAY 11/11/24 Unknown History 1,000 mcg capsule ferrous sulfate 325 mg (65 mg 325 mg PO QODAY 11/11/24 Unknown History iron) tablet (Feosol) Allergy/AdvReac Type Severity Reaction Status Date / Time Sulfa (Sulfonamide Allergy Hives Verified 12/09/24 07:43 Antibiotics) codeine AdvReac Other Verified 12/09/24 07:43 Surgical History History of lumpectomy of right breast History of tonsillectomy History of foot surgery History of History of arthroscopy of right knee Social History Smoking Status: Never smoker alcohol intake: never Review of Systems (Anesthesia) ROS Narrative System reviewed and no additional complaints, except as documented.
[2024-12-09] MEDS: Midazolam 2 MG/2 ML Syringe IV (10:22)
[2024-12-09] MEDS: Cefazolin 1 GM/5 ML Vial 2 GM IV (10:38)
[2024-12-09] MEDS: Lidocaine 1% (5 ml sdv) 5 ML Vial 8 ML IV (10:43)
[2024-12-09] MEDS: JPS (Morphine 10mg/ml) OPERA.SITE (11:48)
--- NOTE | 2024-12-09 11:51 | PCM.OPRPT ---
Operative Report (Standard) Operative Information Date of Procedure: 12/09/24 Pre-Operative Diagnosis: Left knee primary osteoarthritis Post-Operative Diagnosis: Left knee primary osteoarthritis Surgery/Procedure Performed: Left knee minimally invasive robotic assisted total arthroplasty computational biologist: Yes Glue Bone Crusher: Essence Snwo Tasks completed by res habilitation assistant: Other (See body of operative report) Additional assistant professor of sociology?: No Type of Anesthesia: Spinal RN Documented Start/Stop Times: Operation Date: 12/09/24 10:00 Case Time Into Pre-Op 12/09/24 07:29 Anesthesia Start 12/09/24 10:38 Into Room 12/09/24 10:38 Procedure Start 12/09/24 10:57 Procedure End 12/09/24 12:46 Anesthesia End 12/09/24 12:52 Out of Room 12/09/24 12:52 Into Recovery 12/09/24 12:55 Procedure Start Time: 10:57 Procedure Stop Time: 12:46 Select all DRAINS/GRAFTS/IMPLANTS that apply: Prosthetic device Prosthetic device details: See body of operative report Special Medications: 2 g Ancef, 1 g TXA at incision, 1 g TXA closure, 10 mg Decadron, joint cocktail (5 mg Duramorph, 30 mL of 0.5% Ropivicaine, 1000 units of epinephrine, 30 mg of Toradol) Estimated Blood Loss: 100 mL Fluids Replaced: 1500 mg Specimen collected: Yes Description of specimen(s) removed: Bony cuts Description of surgery: Implants used: 1. Romeo size 3 triathlon cruciate retaining distal femoral press-fit component 2. Romeo size 4 press-fit tritanium tibial baseplate 3. Romeo X3 9 mm CS polyethylene 4. Romeo X3 32 mm asymmetric patella Brief history operative indications: 74-year-old f with history of left knee osteoarthritis with radiographic findings with loss of joint space, osteophyte formation and subchondral sclerosis. Failed conservative measures as mentioned in the H&P. Discussion of total knee arthroplasty as well as risk and benefits were discussed the patient including but not limited to blood loss, DVTs, PEs, neurovascular damage, general risk of anesthesia including loss of life, and stiffness or instability were discussed with patient. Patient demonstrated understanding and was able to sign informed consent. Procedure: On the date of procedure patient's left lower extremity was marked in the preoperative area. The patient was then taken back to the operating room where the patient was placed on the table in the supine position. All bony prominences were identified a well-padded. Anesthesia assumed control of the C-spine and airway and remained controlled throughout the remainder of the procedure. A tourniquet was placed on the left upper thigh and the leg was prepped in a sterile fashion. The surgeon then scrubbed at this time .Upon reentering the room left lower extremity was draped in a standard orthopedic fashion. A timeout was then called and everyone agreed upon the side, the site, the procedure to be performed, patient's identity and antibiotics given. Esmarch bandage was used to exsanguinate the extremity and the tourniquet was placed up to 250 mmHg with the knee in flexion. A midline skin incision was made and sharp dissection was taken down through skin subcutaneous tissue and fat. The standard medial parapatellar incision was made and the patella was subluxed laterally. An Appropriate deep MCL release was done and the fat pad was resected. Our attention was then directed to the patella. The patella was everted and a flat resection was made. The knee was then flexed up in 2 femoral pins were placed inside the incision and 2 tibial pins were placed outside the incision in the medial tibia bicortically. Once this was completed the 2 checkpoints in the femur and tibia were placed. Knee was then flexed up and the bony landmarks were registered. Once this was completed knee was taken through range of motion and manually stressed allowing us to a plan for an appropriate tibial cut. The robotic arm was brought into the field sterilely and checkpoint and saw were registered. Based on the patient's deformity the tibial cut was made neutral to the tibial axis. At this time the tensioner was then placed in the joint and ligament tension was checked at 90 degrees and full extension. Based on the patient's ligamentous tension appropriate adjustments were made to the operative plan and ligament releases were done. Once we were happy with our operative plan with balanced flexion and extension gaps our attention was directed to the femur. The robot was brought into the field sterilely and registered. Posterior condylar cuts, anterior chamfer cuts and anterior cuts were appropriately made for a size 3 femur. When these were completed the saws were switched out in the distal femoral and posterior chamfer cuts were made. Protecting the soft tissue throughout this time. A size 4 tibial base plate was selected. the knee was flexed to 90 degrees and the soft tissues and posterior osteophytes were removed from the joint. 40 cc of the periarticular injection was injected into the posterior medial corner of the joint. The appropriate trials were then placed on the femur and tibia. A trial polyethylene was trialed to ensure proper balancing and stability of the knee. The appropriate tibial internal rotation was then marked with a bovie. Our attention was then directed to the patella. The lug holes were drilled and the patella trial was placed. Patellar tracking was checked and deemed appropriate. Once we were happy lug holes were drilled for the femur and trial components were removed. The tibia was subluxed and pinned into place and the keel was punched and drilled appropriately. Final components were verified and opened. The wound was copiously irrigated with normal saline. When the cement was ready the components were impacted into place starting with the tibia then the femur, finally the patella was compressed into place. The trial poly component was placed and the knee was placed in full extension. Once the the implants were secured, the tracking, alignment and balance were verified and a size 9 mm CS polyethylene component was placed. Once the final components were placed a 3-minute dilute Betadine lavage was performed followed by an Irrisept lavage was performed and the wound was copiously irrigated with normal saline solution and the periarticular injection was given. The wound was closed in a layer hammond fashion using #1 vicryl interrupted sutures for the arthrotomy, 2-0 interrupted Vicryl suture for the subcuticular layer and manjinder for final skin closure. A sterile compressive dressing was then placed. The patient was then awakened from anesthesia, transferred to the [facility] and transferred to the PACU for recovery. Post op plan DVT ppx: ASA 81mg BID, thigh high compression stockings Follow up: in office in 2 weeks for wound check PT: to start POD #0 at hospital, outpatient PT should be arranged. My physician assistant professor of sociology was a vital part of this case, they was important because there was not another skilled set of hands available to their training and aptitude needed for safe and appropriate completion of this case. They were important in appropriate retraction during the case, and protection of soft tissues during bony cuts. In particular the experience and skill of this assistant professor of sociology made for safe retraction and exposure during implantation of medical implants without damage to vital soft tissues or structures. His intimate knowledge of the case and my steps aided in safe and expedient completion of the procedure as well as appropriate position of the leg during the case. He was also vital in assisting with closure under my direct supervision. Due to the complexity of this case robotic arm was used to assist in the surgery to improve accuracy and clinical outcomes. Surgical Findings: Stage IV osteoarthritis. Stable knee with good patella tracking Complications Complications: No Admit VTE Documentation VTE Present on Admission: No VTE Mechan Device Prophylaxis: SCD's and Thigh High DEIDRE Hose VTE Pharm Prophylaxis ordered?: Yes
[2024-12-09] MEDS: TRANEXAMIC ACID 1,000 MG/10 ML ML 2000 MG IV (11:54)
[2024-12-09] MEDS: LR 1,000 ML - BOLUS POSTOP 999 ML IV (13:02)
--- NOTE | 2024-12-09 13:11 | PCM.POST.ANE ---
Anesthesia: Postop Eval I Current Vital Signs Temperature: 97.7 F Pulse Rate: 69 Blood Pressure: 96/61 Respiratory Rate: 16 Pulse Ox: 94 Assessment Airway patent: Yes Spontaneous unlabored respirations: Yes nausea: No Vomiting: No Anesthesia Complication: No Fluid Hydration Crystalloid volume administer (ml): 1,700 Total IV fluid infused: 1,700 Progress Note Anesthesia document: Postop Eval 1 completed: Yes
--- NOTE | 2024-12-09 15:04 | SUR.PHASEII ---
patient became nauseous when during transfer to [facility], vomit, given IV benadryl and reglan per order
[2024-12-09] MEDS: LR 1,000 ML - 125 ML/HR (POST BOLUS) POST OP IV (15:25)
--- NOTE | 2024-12-09 15:26 | SUR.PHASEII ---
sttempt to transfer at this time, nausea improved
[2024-12-09] MEDS: Ensure Surgery 237 ML LIQUID PO (16:06)
[2024-12-09] MEDS: Cefazolin 1 GM/50 ML BAG IV (18:39)
--- NOTE | 2024-12-09 21:21 | CON.PCM.HO_ITS ---
HPI Consult Data Date of Consult: 12/09/24 HPI Narrative HPI Narrative: LEE BORDEN, is a 74 F who presents [facility] Medical History Post-menopausal Wears glasses Cancer Walker as ambulation aid Arthritis Anemia High cholesterol Chronic cough Non-smoker History of edema History of stress test Pneumonia Incontinence Bruising, spontaneous Asthma Knee pain Hay fever Shortness of breath History of breast cancer Home Medications ?Medication ?Instructions ?Recorded ?Last Taken ?Type Folate 800 mcg PO DAILY 11/11/24 Un known History cholecalciferol (vitamin D3) 50 75 mcg PO DAILY Unknown History mcg (2,000 unit) tablet (Vitamin D3) cyanocobalamin (vitamin B-12) 1,000 mcg PO QODAY 11/11 Unknown History 1,000 mcg capsule ferrous sulfate 325 mg (65 mg 325 mg PO QODAY 11/11/24 Unknown History iron) tablet (Feosol) Allergy/AdvReac Type Severity Reaction Status Date / Time Sulfa (Sulfonamide Allergy Hives Verified 12/09/24 07:43 Antibiotics) codeine AdvReac Other Verified 12/09/24 07:43 Surgical History History of lumpectomy of right breast History of tonsillectomy History of foot surgery History of History of arthroscopy of right knee Social History Smoking Status: Never smoker alcohol intake: never Lab / Micro Data 11/14/24 07:33 11/14/24 07:33 Labs: Laboratory Results - last 24 hr 12/09/24 08:43: POC Glucose 105 Imaging Radiology Impression Knee X-Ray 12/09/24 07:02 IMPRESSION: Hardware in position. Reading Location: [facility]
--- NOTE | 2024-12-09 21:21 | PCM.CONS.GEN ---
Assessment & Plan Assessment/Plan (1) Osteoarthritis: PLAN: Plan # History of asthma -Albuterol as needed # Left knee primary osteoarthritis -Status post invasive robotic assisted total arthroplasty with Dr. Love 12/09/2024 -Management/pain management per primary #DVT ppx: Timing and agent at discretion of primary Kimberly Mobley MD HPI Consult Data Date of Consult: 12/09/24 HPI Narrative Reason for Consultation: Post op med management HPI Narrative: LEE BORDEN, is a 74-year-old female with history of left knee primary osteoarthritis, otherwise only on supplements, presented to [facility] 12/09/2024 for left knee minimally invasive robotic assisted total arthroplasty with Dr. Love. Hospitalist consulted for postoperative medical management. Patient evaluated bedside, she has no acute complaints or concerns [facility] Medical History Post-menopausal Wears glasses Cancer Walker as ambulation aid Arthritis Anemia High cholesterol Chronic cough Non-smoker History of edema History of stress test Pneumonia Incontinence Bruising, spontaneous Asthma Knee pain Hay fever Shortness of breath History of breast cancer Home Medications ?Medication ?Instructions ?Recorded ?Last Taken ?Type Folate 800 mcg PO DAILY 11/11/24 Unknown History cholecalciferol (vitamin D3) 50 75 mcg PO DAILY 11/11/24 Unknown History mcg (2,000 unit) tablet (Vitamin D3) cyanocobalamin (vitamin B-12) 1,000 mcg PO QODAY 11/11/24 Unknown History 1,000 mcg capsule ferrous sulfate 325 mg (65 mg 325 mg PO QODAY 11/11/24 Unknown History iron) tablet (Feosol) Allergy/AdvReac Type Severity Reaction Status Date / Time Sulfa (Sulfonamide Allergy Hives Verified 12/09/24 07:43 Antibiotics) codeine AdvReac Other Verified 12/09/24 07:43 Surgical History History of lumpectomy of right breast History of tonsillectomy History of foot surgery History of History of arthroscopy of right knee Social History Smoking Status: Never smoker alcohol intake: never Physical Exam Narrative General: Alert, oriented, no apparent distress HEENT: Atraumatic, normocephalic Eyes: extraocular movements grossly intact Neck: Supple Respiratory: normal respiratory effort, clear to auscultation bilaterally Cardiovascular: Regular rate and rhythm GI: nondistended Extremities: Moving all extremities Neuro: No overt focal neurological deficits Psych: Cooperative Lab / Micro Data 11/14/24 07:33 11/14/24 07:33 Labs: Laboratory Results - last 24 hr 12/09/24 08:43: POC Glucose 105 Imaging Radiology Impression Knee X-Ray 12/09/24 07:02 IMPRESSION: Hardware in position. Reading [id number]
[2024-12-09] MEDS: Senna/Docusate Sodium 1 Tablet 2 TABLET PO (21:43)
[2024-12-10 00:25] VITALS: BP 118/65; PULSE 66; RESP 18; TEMP 36.4; O2SAT 98
[2024-12-10 02:55] VITALS: BP 135/62; PULSE 68; RESP 16; TEMP 36.6; O2SAT 96
[2024-12-10] MEDS: Cefazolin 1 GM/50 ML BAG IV (03:07)
[2024-12-10 05:49] VITALS: BP 118/72; PULSE 72; RESP 18; TEMP 36.4; O2SAT 97
[2024-12-10 06:29] LABS: Hematocrit 34.1 % (37-47); Hemoglobin 11.1 g/dL (12.0-15.0); Mean Corp Hgb Conc 32.6 g/dL (32-36); Mean Corpuscular Volume 90.5 fL (81-99); Mean Platelet Vol. 9.6 fl (6.2-12.0); Platelet Count 274 K/mm3 (150-450); RBC Distribution Width CV 14.0 % (11.6-14.6); RBC Distribution Width SD 45.9 fl (35.1-43.9); Red Blood Count 3.77 M/mm3 (4.2-5.4); White Blood Count 14.3 K/mm3 (4.4-11.0)
[2024-12-10 06:53] LABS: Anion Gap 10 (5-15); BUN 15 mg/dL (4-19); BUN/Creat Ratio 25.0 RATIO (10-20); Calcium,Total 8.8 mg/dL (7.6-11.0); Carbon Dioxide 22.8 mmol/L (21.0-32.0); Chloride 107 mmol/L (98-108); Estimated Creatinine Clearance 67.37 ml/min (50-250); Glucose 108 mg/dL (70-99); Potassium 4.7 mmol/L (3.3-5.1)
[2024-12-10 07:05] VITALS: O2SAT 95
[2024-12-10 07:30] VITALS: BP 127/69; PULSE 64; RESP 16; TEMP 36.4; O2SAT 96
[2024-12-10] MEDS: Senna/Docusate Sodium 1 Tablet 2 TABLET PO (07:35)
[2024-12-10] MEDS: Ensure Surgery 237 ML LIQUID PO (07:35)
--- NOTE | 2024-12-10 08:21 | PCM.PN.HOSP ---
Reason for Visit Chief Complaint: Status post left TKA Subjective Subjective Patient is a 74-year-old lady who underwent left total knee arthroplasty by Dr. Lizarraga on 12/09/2024 hospitalist service was consulted to assist with management of patient medical comorbidities Objective Data Objective Data Vital Signs: Vital Signs Temp Pulse Resp BP Pulse Ox O2 Del Method O2 Flow Rate 97.6 F L 64 16 127/69 H 96 Room Air 4 12/10/24 07:30 12/10/24 07:30 12/10/24 07:30 12/10/24 07:30 12/10/24 07:30 12/10/24 07:48 12/09/24 14:15 Oxygen Flow Rate (L/min) 4 Oxygen Delivery Method Room Air Weight: 92.7 kg Body Mass Index (BMI) 37.3 Intake & Output: Intake and Output for Last 24 Hours 12/08/24 12/09/24 12/10/24 23:59 23:59 23:59 Intake Total 4152 / 4152 650 / 650 Output Total 300 / 300 150 / 150 Balance 3852 / 3852 500 / 500 Lab / Micro Data 12/10/24 05:49 12/10/24 05:49 Labs: Laboratory Results - last 24 hr 12/09/24 08:43: POC Glucose 105 12/10/24 05:49: WBC 14.3 H, RBC 3.77 L, Hgb 11.1 L, Hct 34.1 L, MCV 90.5, MCH 29.4, MCHC 32.6, RDW Std Deviation 45.9 H, RDW Coeff of Cherry 14.0, Plt Count 274, MPV 9.6, Sodium 140, Potassium 4.7, Chloride 107, Carbon Dioxide 22.8, Anion Gap 10, BUN 15, Creatinine 0.60 L, Estim Creat Clear Calc 67.37, Est GFR (MDRD) Non-Af 95, BUN/Creatinine Ratio 25.0 H, Glucose 108 H, Calcium 8.8 Micro: Microbiology 11/14/24 07:33 Swab (Method) Nasal Screen MRSA/MSSA - Final Radiography Diagnostic Testing: Radiology Impression Knee X-Ray 12/09/24 07:02 IMPRESSION: Hardware in position. [facility] Narr[facility] GENERAL: cooperative HEENT: Atraumatic; normocephalic EYES; Anicteric, Normal Conjunctiva NECK; supple, normal thyroid, RESPIRATORY: Diminished to auscultation CARDIOVASCULAR: Regular S1 S2, GI: soft, normoactive bowel sounds, : No Renal angle tenderness; EXTREMITIES: No edema, no clubbing, MUSCULOSKELETAL: no muscle wasting NEURO: Awake; no lateralizing signs. SKIN: No Rash PSYCH; Flat affect Assessment & Plan Assessment/Plan (1) Osteoarthritis: PLAN: Plan Patient is a 74-year-old lady who underwent left total knee arthroplasty by Dr. Lizarraga on 12/09/2024 hospitalist service was consulted to assist with management of patient medical comorbidities 1. Status post invasive robotic assisted total arthroplasty ? Dr. Love 12/09/2024. Patient postop orders regarding PT OT DVT prophylaxis pain management deferred to primary service 2. Mild intermittent asthma ? Not in exacerbation aerosol treatment as needed 3. Class II obesity with BMI of 37.4 ? Weight loss advised 4. Anemia ? Secondary to chronic disorder monitoring H&H and transfuse if patient becomes symptomatic or hemoglobin falls below 7 5. DVT prophylaxis ? Defer to primary Time spent in the patient's overall evaluation,decision-making process, review of diagnostic data, adjustment of management, discussion with other providers, nursing nursing and ancillary staff involved in patient's care documentation, 35 Minutes Charges/Coding Visit Charges Inpatient E&M: 00579 Subs Hosp L2
--- NOTE | 2024-12-10 09:30 | PCM.PN.ORT ---
Subjective Subjective Patient appears to be comfortable in bed at this time. Patient states that her pain is adequately controlled. Patient states that she has not yet worked with physical therapy but has been up to bed to the bathroom. Patient states that she is eager to get home and she lives with her daughter. Patient states that she is feels comfortable to go home at this point. Patient denies any nausea vomiting dizziness. Patient denies any new numbness or tingling. Patient denies any shortness of breath, chest pain, calf pain. Patient denies any fevers, chills, signs of infection. Patient denies any adverse events overnight. Objective Data Objective Data Vital Signs: Vital Signs Temp Pulse Resp BP Pulse Ox O2 Del Method O2 Flow Rate 97.6 F L 64 16 127/69 H 96 Room Air 4 12/10/24 07:30 12/10/24 07:30 12/10/24 07:30 12/10/24 07:30 12/10/24 07:30 12/10/24 07:48 12/09/24 14:15 Oxygen Flow Rate (L/min) 4 Oxygen Delivery Method Room Air Weight: 92.7 kg Body Mass Index (BMI) 37.3 Intake & Output: Intake and Output for Last 24 Hours 12/08/24 12/09/24 12/10/24 23:59 23:59 23:59 Intake Total 4152 / 4152 650 / 650 Output Total 300 / 300 150 / 150 Balance 3852 / 3852 500 / 500 Lab / Micro Data 12/10/24 05:49 12/10/24 05:49 Labs: Laboratory Results - last 24 hr 12/10/24 05:49: WBC 14.3 H, RBC 3.77 L, Hgb 11.1 L, Hct 34.1 L, MCV 90.5, MCH 29.4, MCHC 32.6, RDW Std Deviation 45.9 H, RDW Coeff of Cherry 14.0, Plt Count 274, MPV 9.6, Sodium 140, Potassium 4.7, Chloride 107, Carbon Dioxide 22.8, Anion Gap 10, BUN 15, Creatinine 0.60 L, Estim Creat Clear Calc 67.37, Est GFR (MDRD) Non-Af 95, BUN/Creatinine Ratio 25.0 H, Glucose 108 H, Calcium 8.8 Micro: Microbiology 11/14/24 07:33 Swab (Method) Nasal Screen MRSA/MSSA - Final Radiography Diagnostic Testing: Radiology Impression Knee X-Ray 12/09/24 07:02 IMPRESSION: Hardware in position. [facility] Exam Narrative Vital stable and afebrile DEIDRE hose in place bilaterally SCDs in place bilaterally Sensation intact to light touch. Neurovascularly intact overall. Dorsiflexion and plantarflexion are performed actively without pain or restriction. Negative Homans bilaterally. Const alert, oriented x3 and no apparent distress Assessment & Plan Assessment/Plan (1) Status post total left knee replacement: PLAN: Status post left total knee arthroplasty day 1 1. DVT prophylaxis: Patient will be on aspirin 81 mg twice daily for 4 weeks postoperatively. Patient will be on DEIDRE hose for 2 weeks postoperatively. Patient was educated she can take her DEIDRE hose off for showering and at bedtime. 2. Pain medications: Patient will be on Tylenol 1000 mg every 8 hours, meloxicam for 30 days postoperatively, oxycodone as needed for pain control. Patient was educated not to take any other anti-inflammatory medications while on meloxicam. 3. Constipation: Patient was educated to take senna as instructed until her first bowel movement to decrease risk of impaction following surgery. Patient was instructed if if she has not had a bowel movement in 3 days to contact our office for reevaluation. 4. Reactive leukocytosis: White blood cell count currently 14.3. Patient did receive Decadron intraoperatively. Vital signs are stable and patient is afebrile. 5. H&H: 11.1/34.1. Patient's vital signs are stable and afebrile. Hemoglobin is currently above 10 so patient does not require any ferrous sulfate or folic acid. 6. Physical therapy: Patient is weightbearing as tolerated with walker. Patient does have outpatient physical therapy to start on . 7. Incentive spirometry: Patient was encouraged to use the incentive spirometer every hour that she is awake for the first week to exercise along decrease risk of postoperative lung infection. 8. Dressings: Patient was educated that she can get dressing wet on postoperative day 1. Patient was educated she can remove dressing on postoperative day 5. 9. Patient is to follow-up per postoperative instructions. 10. Medicine is involved at this point. Appreciate recommendations from medicine team. 11. Disposition: We will plan for discharge today as long as pain maintains adequately controlled, patient works with and is cleared by physical therapy, and is okay per medicine doctors recommendations. Patient states that she does have her aspirin, Tylenol, ferrous sulfate, folic acid at home. Patient declines needing any Zofran at this time. Patient does have outpatient physical therapy scheduled to start on . Patient does have follow-up scheduled with our office in 2 weeks. Patient does live with her daughter and states at this point she does feel comfortable with going home with her daughter. Patient's medications will be sent to patient's pharmacy of choice. Patient was encouraged to call with any questions, concerns, new problems. All questions were answered to best my ability.
--- NOTE | 2024-12-10 09:42 | DCINST_ITS ---
Discharge Instructions DC O2, CPAP, BIPAP needs Home O2 Discharge instructions: No Dressing / Incision Discharge Activity: May Shower (Over dressing on postoperative day 1.) and Use Walker (Weightbearing as tolerated with walker.) Weight Bearing Status: Weight bearing as tolerated (With walker.) Keep extremity elevated above heart level: Left Leg (Robotic assisted left total knee arthroplasty.) Dressing / Incision Call your doctor if your incision/area has: Continuous Slow Oozing, Sudden Increased Bleeding, Increased Pain/ Swelling, Increased Redness, Foul Smelling Discharge and Swelling at the incision site Call your doctor if you observe: Fever of 101 or Higher, Coldness, Increased Pain, Numbness or Tingling, Change in Color, Inability to urinate, Inability to have a bowel movement, Using more than 1 pad per hour, Shortness of breath, Dizziness, Fainting spells, Swelling in the ankles, Chest pain, Prolonged hiccupping, Increased palpitations (irregular heartbeat), Calf discomfort and Uncontrolled pain Remove Dressing in: 5 days (May remove dressing on postoperative day 5.) Cleanse incision/area with: Soap & Water (Gentle soap and water.) Additional Dressing/Incision Instructions:: No soaking, submerging for 6 weeks postoperatively. No lotions, oils, salves over incision for 6 weeks postoperatively. Encourage incentive spirometry. Patient was encouraged to continue her ferrous sulfate and folic acid and follow-up with primary care provider in 7 to 10 days for repeat labs and to manage chronic anemia. Patient was educated that ferrous sulfate can cause constipation and was educated to let us know if have not had a bowel movement in 3 days. OAR[place] report was checked today. Follow Up Care Test Results: Test results from this visit will be discussed in further detail at your follow-up appointment, if applicable. Discharge Plan Admission Admit Date/Time: 12/09/24 07:02 Attending Provider: Eusebio De Guzman Primary Care Provider: Darinel Farley Consulting Providers: Kimberly Mobley; Sulaiman Love Discharge Orders/Prescriptions Prescriptions: New acetaminophen 500 mg Tablet 1,000 mg PO Q8 Qty: 0 0RF famotidine 20 mg Tablet 20 mg PO DAILY 30 Days Qty: 30 0RF aspirin 81 mg Tablet,Chewable 81 mg PO BID Qty: 0 0RF Rx Instructions: Take 81 mg aspirin twice daily until 4 weeks postoperatively. sennosides-docusate sodium [Stimulant Laxative Plus] 8.6-50 mg Tablet 2 tab PO BID 3 Days Qty: 12 0RF meloxicam 7.5 mg Tablet 7.5 mg PO BID 30 Days Qty: 60 0RF Rx Instructions: Do not take with any other anti-inflammatory medications. oxycodone 5 mg Tablet 5 - 10 mg PO Q4H PRN PRN (Reason: As needed for pain) 7 Days Qty: 42 0RF Continued ferrous sulfate [Feosol] 325 mg (65 mg iron) tablet 325 mg PO QODAY cyanocobalamin (vitamin B-12) 1,000 mcg capsule 1,000 mcg PO QODAY Folate 800 mcg 800 mcg PO DAILY cholecalciferol (vitamin D3) [Vitamin D3] 50 mcg (2,000 unit) tablet 75 mcg PO DAILY Other Ambulatory Orders: 12 Lead EKG (Routine) Location: None Selected Ordered By: Dr. Sulaiman Love CBC W/Diff, Automated (Routine) Timeframe: 1 Week Facility: [facility] - Location: Laboratory Ordered By: Essence Snow Referrals / Follow Up: Darinel Farley MD [Primary Care Provider] - Disposition Disposition (needs filled in before D/C Order can be placed): Home, Self Care
--- NOTE | 2024-12-10 10:34 | CASEMGMT ---
SERENA CM in to discuss HANEY form with patient. RN CM explained HANEY form, patient voiced understanding. Pt signed form and filed in chart. Pt provided with a copy of signed HANEY form. Patient had no further questions or concerns at this time.
--- NOTE | 2024-12-10 10:36 | CASEMGMT ---
RN CM into pt room, pt sitting up in bed. Pt reports she has a walker, rollator and cane at home. Pt lives with her dtr who is a RN. Pt states she has outpt therapy set up on at in [place]. Pt denies any homegoing needs at this time.
[2024-12-10 13:57] VITALS: BP 150/77; PULSE 76; RESP 17; TEMP 36.6; O2SAT 99
== END 2024-12-10 16:23 | disposition home or self-care (01) ==
LOC: SDC 14:54 → AC 14:55 → SDC 14:55 → MS3 14:55
PROVIDERS: Admitting Provider Specialist; PCP Family Medicine; Referring Provider Specialist; Visit Provider Internal Medicine
PROC: 0SRD0JZ Replacement of Left Knee Joint with Synthetic Substitute, Open Approach (ICD-10-PCS; CPT 27447; principal; 2024-12-09 09:30)
DX: M17.12 Unilateral primary osteoarthritis, left knee (principal); E78.00 Pure hypercholesterolemia, unspecified; J45.20 Mild intermittent asthma, uncomplicated; D63.8 Anemia in other chronic diseases classified elsewhere; I10 Essential (primary) hypertension; Z79.82 Long term (current) use of aspirin; Z79.899 Other long term (current) drug therapy; M21.162 Varus deformity, not elsewhere classified, left knee; E66.9 Obesity, unspecified; Z68.37 Body mass index [BMI] 37.0-37.9, adult; M79.89 Other specified soft tissue disorders; Z86.2 Personal history of diseases of the blood and blood-forming organs and certain disorders involving the immune mechanism
CPT/HCPCS: 27447; 01402; S2900; 36415; 73560; 80048; 82040; 82962; 83735; 85025; 85027; 85610; 85730; 87081; 93005; 94668; 96361; 96365; 96366; 97162; 99221; C1776; G0378; J2405; J3475

== ENCOUNTER 2025-01-02 16:58 | Outpatient (CLI) | payer MEDICARE, BC, SELFPAY ==
[2025-01-02 18:01] LABS: Hematocrit 40.1 % (37-47); Hemoglobin 12.5 g/dL (12.0-15.0); Mean Corp Hgb Conc 31.2 g/dL (32-36); Mean Corpuscular Volume 91.1 fL (81-99); Mean Platelet Vol. 9.4 fl (6.2-12.0); Platelet Count 424 K/mm3 (150-450); RBC Distribution Width CV 14.6 % (11.6-14.6); RBC Distribution Width SD 48.5 fl (35.1-43.9); Red Blood Count 4.40 M/mm3 (4.2-5.4); White Blood Count 8.7 K/mm3 (4.4-11.0)
[2025-01-02 18:28] LABS: Ferritin 176 ng/mL (22-378); Iron 46 ug/dL (50-170); Iron Binding Capacity,Total 330 ug/dL (250-450); Iron Binding Capacity,Unsat 284 ug/dL (228-428); Vitamin D,25 Hydroxy 36.1 ng/mL (30-100)
== END 2025-01-02 23:59 | disposition home or self-care (01) ==
LOC: MTLAB 16:59
PROVIDERS: PCP Family Medicine; Visit Provider Family Medicine
DX: D64.9 Anemia, unspecified (principal); R79.89 Other specified abnormal findings of blood chemistry; E55.9 Vitamin D deficiency, unspecified
CPT/HCPCS: 36415; 82306; 82728; 83540; 83550; 84443; 85027